=== PATIENT | female | born 1970 | race Caucasian/White ===

== ENCOUNTER → 2019-03-31 09:42 | Outpatient (BNVA) | payer MEDICARE, MEDICAID, SELFPAY | PROVIDERS: PCP Family Medicine; Visit Provider Family Medicine | DX: E11.8 Type 2 diabetes mellitus with unspecified complications (principal); E03.9 Hypothyroidism, unspecified; I10 Essential (primary) hypertension; E78.2 Mixed hyperlipidemia; D72.819 Decreased white blood cell count, unspecified; J44.9 Chronic obstructive pulmonary disease, unspecified; J30.9 Allergic rhinitis, unspecified; E78.5 Hyperlipidemia, unspecified; R74.8 Abnormal levels of other serum enzymes; J30.1 Allergic rhinitis due to pollen; Q90.9 Down syndrome, unspecified; Z79.01 Long term (current) use of anticoagulants; Z51.81 Encounter for therapeutic drug level monitoring; Z86.718 Personal history of other venous thrombosis and embolism | CPT/HCPCS: 80053; 80061; 83036; 84443; 85025; 85610 ==

== ENCOUNTER → 2019-05-27 08:05 | Outpatient (BNVA) | payer MEDICARE, MEDICAID, SELFPAY | PROVIDERS: PCP Family Medicine; Visit Provider Family Medicine | DX: Z51.81 Encounter for therapeutic drug level monitoring (principal); D69.9 Hemorrhagic condition, unspecified | CPT/HCPCS: 85610 ==

== ENCOUNTER → 2019-07-08 08:50 | Outpatient (BNVA) | payer MEDICARE, MEDICAID, SELFPAY | PROVIDERS: PCP Family Medicine; Visit Provider Family Medicine | DX: Z51.81 Encounter for therapeutic drug level monitoring (principal); Z79.01 Long term (current) use of anticoagulants; Z86.718 Personal history of other venous thrombosis and embolism | CPT/HCPCS: 85610 ==

== ENCOUNTER → 2019-10-05 16:34 | Outpatient (BNVA) | payer MEDICARE, MEDICAID, SELFPAY | PROVIDERS: PCP Family Medicine; Visit Provider Family Medicine | DX: Z51.81 Encounter for therapeutic drug level monitoring (principal); Z79.01 Long term (current) use of anticoagulants | CPT/HCPCS: 85610 ==

== ENCOUNTER → 2019-11-16 10:54 | Outpatient (BNVA) | payer MEDICARE, MEDICAID, SELFPAY | PROVIDERS: PCP Family Medicine; Visit Provider Family Medicine | DX: D72.819 Decreased white blood cell count, unspecified (principal); E03.9 Hypothyroidism, unspecified; E11.9 Type 2 diabetes mellitus without complications; J44.9 Chronic obstructive pulmonary disease, unspecified; R74.8 Abnormal levels of other serum enzymes; Z51.81 Encounter for therapeutic drug level monitoring; Z79.01 Long term (current) use of anticoagulants; Z86.718 Personal history of other venous thrombosis and embolism | CPT/HCPCS: 80053; 83036; 84443; 85025; 85610 ==

== ENCOUNTER 2019-11-22 11:17 | Inpatient (IN) | payer MEDICARE, MEDICAID, SELFPAY ==
[2019-11-22] VITALS (17 sets, daily range): BP systolic 90–125; BP diastolic 56–79; PULSE 68–91; RESP 14–26; TEMP 36.9–37.1; O2SAT 67–95; BMI 40.2
--- NOTE | 2019-11-22 11:30 | ECG_ITS ---
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 Measurements Intervals [place] Rate: 79 P: 56 MN: 156 QRS: 17 QRSD: 81 T: 4 QT: 384 QTc: 441 Interpretive Statements SINUS RHYTHM No previous ECG available for comparison Electronically Signed On 11-22-2019 17:57:10 CDT by Damaris Hughes M.D. [email or web address]
--- NOTE | 2019-11-22 11:30 | XRR_ITS ---
PROCEDURE INFORMATION: Exam: XR Chest, 1 View Exam date and time: 11/22/2019 11:49 AM Age: 49 years old Clinical indication: Shortness of breath; Additional info: SOB, hypoxia, exposure to covid TECHNIQUE: Imaging protocol: XR of the chest Views: 1 view. COMPARISON: No relevant prior studies available. FINDINGS: Lungs: Alveolar airspace consolidation left upper lobe. Subtle airspace disease suggested within the lung bases. Consider correlation with CT. Likely infectious process. Pleural space: Unremarkable. No pleural effusion. No pneumothorax. Heart/Mediastinum: Unremarkable. No cardiomegaly. Bones/joints: Unremarkable. XR/XR chest 1V portable [id number] IMPRESSION: Alveolar airspace consolidation left upper lobe. Subtle airspace disease suggested within the lung bases. Consider correlation with CT. Likely infectious process. Covid within the differential diagnosis.
[2019-11-22 11:46] LABS: Basophils % 0.2 %; Hematocrit 37.8 % (37.0-47.0); Hemoglobin 12.7 g/dL (11.5-15.3); Lymphocytes # 0.5 10^3/uL (0.8-4.8); Lymphocytes % 8.6 %; Mean Corpuscular HGB Conc 33.6 g/dL (30.0-36.0); Mean Corpuscular Hemoglobin 31.7 pg (28.0-34.0); Mean Corpuscular Volume 94.3 fL (81-99); Mean Platelet Volume 10.8 fL (7.4-10.4); Monocytes # 0.1 10^3/uL (0.2-0.9); Monocytes % 2.2 %; Neutrophils # 5.06 10^3/uL (1.8-7.7); Neutrophils % 87.4 %; Nucleated Red Blood Cells % 0 %; Platelet Count 219 10^3/cmm (130-400); Red Blood Count 4.01 10^6/uL (4.1-5.3); Red Cell Distribution Width 13.7 % (12.1-15.1); White Blood Count 5.8 10^3/uL (4.0-10.0)
[2019-11-22] MEDS: sodium chloride 0.9% 1,000 ML 999 ML IV ×2 (11:52→13:38)
[2019-11-22 11:55] LABS: D Dimer 0.81 ug/mIFEU (0-0.59)
[2019-11-22 11:57] LABS: Lactic Sepsis W/Reflex 1.7 mmol/L (0.5-2.2)
[2019-11-22 12:00] LABS: Troponin T (5th) Once 19 ng/L (0-10)
[2019-11-22 12:26] LABS: Alanine Aminotransferase 49 U/L (0-33); Albumin Level 3.5 g/dL (3.5-5.2); Alkaline Phosphatase 374 IU/L (35-105); Aspartate Amino Transferase 73 U/L (0-32); Blood Urea Nitrogen 8 mg/dL (6-20); C Reactive Protein 174.2 mg/L (0.0-4.9); Calcium 8.3 mg/dL (8.5-10.5); Carbon Dioxide 25 mmol/L (22-29); Chloride 101 mmol/L (98-107); Globulin 3.4 g/dL (1.3-4.6); Glomerular Filtration Rate 88.6 mL/min (90-130); Glucose 166 mg/dL (65-115); Lactate Dehydrogenase 457 U/L (135-214); NT Pro B Type Natriuretic Pept 651 pg/mL (0-125); Osmolality Calculated 288 mOsm/kg (285-295); Sodium 138 mmol/L (136-145); Total Bilirubin 0.5 mg/dL (0.15-1.2); Total Protein 6.9 g/dL (6.6-8.7)
--- NOTE | 2019-11-22 12:26 | PC.NURSE ---
COVID swabs collected and turned into lab by this nurse at 1210.
--- NOTE | 2019-11-22 12:30 | PC.NUTR ---
Pt given ice water, per pt request. Pt denies the need for anything further at this time.
[2019-11-22 12:36] LABS: Influenza A by IFA Negative (Negative)
[2019-11-22 12:37] LABS: Influenza B by IFA Negative (Negative); SARS Covid-2 Antigen Positive (Negative)
[2019-11-22 12:48] LABS: Ferritin 1829 ng/mL (15-150); Fibrinogen 1020 mg/dL (174-498)
--- NOTE | 2019-11-22 12:54 | ED_ITS ---
HPI - SOB/Dyspnea General: Chief Complaint: Shortness of Breath/Dyspnea Stated Complaint: SOB Time Seen by Provider: 11/22/19 11:18 Source: EMS Mode of arrival: EMS Limitations: other (down's syndrome) History of Present Illness: HPI Narrative: Patient's caregiver took her to her primary care provider's office to get tested for COVID-19 as the patient had a close contact with somebody with COVID-19. At the PCPs office she was noted to be severely hypoxic with oxygen saturation in the 60s. She was then sent here for evaluation. The patient has Down syndrome with intellectual disability and a complete history difficult to obtain from her. She does deny difficulty breathing no chest pain although I am not sure how reliable the history is. MD elicited complaint: shortness of breath Review of Systems General: Reports: ROS unobtainable due to medical condition PFSH ED PFSH: Medical History (Reviewed 11/22/19 @ 13:10 by Yuridia Hartley MD, 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) H/O arthroscopic knee surgery Family History (Reviewed 11/22/19 @ 13:10 by Yuridia Hartley MD, [facility]) Mother Diabetes Social History (Reviewed 11/22/19 @ 13:10 by Yuridia Hartley MD, [facility]) Smoking and tobacco status: never smoked Second hand smoke exposure: No Alcohol intake: never Adopted: No Lives independently: No Household members: family Female Reproductive History: Spontaneous abortions: No Physical Exam Const: COMMON NORMALS: no acute distress, average body habitus, patient oriented x3, no limitations, healthy appearing, alert and well nourished HENMT: COMMON NORMALS: normocephalic, atraumatic and moist oral mucous membranes HEAD & SCALP: normocephalic and atraumatic Neck/C-Spine: COMMON NORMALS: no meningeal signs and no JVD Chest: COMMONS NORMALS: normal inspection of the chest and normal palpation of entire chest wall Resp: COMMON NORMALS: normal respiratory effort, No retractions, No use of accessory muscles and percussion normal AUSCULTATION: rales and diminished lung sounds PERCUSSION: percussion normal Cardio: COMMON NORMALS: no JVD, regular rate, regular rhythm, S1 normal heart sound present, S2 normal heart sound present, No gallops present (Cardio), No clicks present (Cardio), No murmurs present (Cardio), No rub (Cardio) and Fatimah pheral pulses 2+ throughout RATE: regular rate RHYTHM: regular rhythm HEART SOUNDS: S1 normal heart sound present and S2 normal heart sound present PERIPHERAL PULSES: Peripheral pulses 2+ throughout GI: COMMON NORMALS: Normal to inspection, nondistended, normoactive bowel sounds present, Soft to palpation, non-tender, No hepatosplenomegaly present, no masses and no bruits PALPATION: Yes Soft to palpation and Yes No hepatosplenomegaly present Extremity: COMMON NORMALS: normal to inspection, full ROM, capillary refill normal, no calf tenderness and no pedal edema Neuro: COMMON NORMALS: patient oriented x3 SENSORIUM/ORIENTATION: Yes alert MENINGEAL SIGNS: Yes no meningeal signs Skin: COMMON NORMALS: no rashes or lesions noted, no wounds, turgor normal, no jaundice, no petechiae and no mottling GENERAL SKIN EXAM: no rashes or lesions noted and turgor normal Course ED course: During the ED stay the patient took off her oxygen and her saturations dropped to the mid to low 80s. She tested positive for COVID-19. She requires oxygen at 4 L/min to maintain her saturation. She is admitted to the viral ICU for further evaluation and management. Consultations: Consultation #1: Dr. Michel, viral ICU hospitalist. He kindly accepted patient to his service. Vital Signs: Vital signs: Vital Signs Temperature 98.5 F 11/22/19 19:23 Pulse Rate 74 11/22/19 19:57 Respiratory Rate 17 11/22/19 19:52 Blood Pressure 106/58 11/22/19 19:23 Pulse Oximetry 93 11/22/19 19:52 MDM - SOB/Dyspnea MDM Narrative: Medical decision making narrative: 49-year-old patient with COVID-19 and hypoxia. She is admitted to the viral ICU for further evaluation and management. She needed oxygen to maintain her saturations. Medical Records: Attestation: I reviewed the patient's medical records. Lab Data: Attestation: I reviewed the patient's lab results. Labs: Lab Results 11/22/19 11/22/19 11/22/19 Range/Units 11:29 11:29 11:29 WBC 5.8 (4.0-10.0) 10^3/ uL RBC 4.01 L (4.1-5.3) 10^6/u L Hgb 12.7 (11.5-15.3) g/dL Hct 37.8 (37.0-47.0) % MCV 94.3 (81-99) fL MCH 31.7 (28.0-34.0) pg MCHC 33.6 (30.0-36.0) g/dL RDW 13.7 (12.1-15.1) % Plt Count 219 (130-400) 10^3/c mm MPV 10.8 H (7.4-10.4) fL Neut % (Auto) 87.4 % Lymph % (Auto) 8.6 % [place] % (Auto) 2.2 % Eos % (Auto) 0.0 % Baso % (Auto) 0.2 % Neut # (Auto) 5.06 (1.8-7.7) 10^3/u L Lymph # (Auto) 0.5 L (0.8-4.8) 10^3/u L [place] # (Auto) 0.1 L (0.2-0.9) 10^3/u L Eos # (Auto) 0.0 (0.0-0.8) 10^3/u L Baso # (Auto) 0.0 (0.0-0.1) 10^3/u L Nucleated RBC % (a uto) 0 % Nucleated RBCs # 0.0 /100WBC Fibrinogen 1020 H (174-498) mg/dL D-Dimer 0.81 H (0-0.59) ug/mIFE U Sodium 138 (136-145) mmol/L Potassium 4.0 (3.5-5.1) mmol/L Chloride 101 (98-107) mmol/L Carbon Dioxide 25 (22-29) mmol/L Anion Gap 16.0 (5-19) BUN 8 (6-20) mg/dL Creatinine 0.7 (0.5-0.9) mg/dL GFR Calculation 88.6 L (90-130) mL/min Glucose 166 H (65-115) mg/dL Calculated Osmolal ity 288 (285-295) mOsm/k g Lactic Acid (0.5-2.2) mmol/L Calcium 8.3 L (8.5-10.5) mg/dL Ferritin 1829 H (15-150) ng/mL Total Bilirubin 0.5 (0.15-1.2) mg/dL AST 73 H (0-32) U/L ALT 49 H (0-33) U/L Alkaline Phosphata se 374 H (35-105) IU/L Lactate Dehydrogen ase 457 H (135-214) U/L Troponin T Gen 5 n g/L (0-10) ng/L C-Reactive Protein 174.2 H (0.0-4.9) mg/L NT-Pro-B Natriuret Pep 651 H (0-125) pg/mL Total Protein 6.9 (6.6-8.7) g/dL Albumin 3.5 (3.5-5.2) g/dL Globulin 3.4 (1.3-4.6) g/dL TSH (0.27-4.20) uIU/ mL Influenza Type A A g (Negative) Influenza Type B A g (Negative) SARS-CoV-2 Ag (Rap id) (Negative) 11/22/19 11/22/19 11/22/19 Range/Units 11:29 11:29 11:29 WBC (4.0-10.0) 10^3/ uL RBC (4.1-5.3) 10^6/u L Hgb (11.5-15.3) g/dL Hct (37.0-47.0) % MCV (81-99) fL MCH (28.0-34.0) pg MCHC (30.0-36.0) g/dL RDW (12.1-15.1) % Plt Count (130-400) 10^3/c mm MPV (7.4-10.4) fL Neut % (Auto) % Lymph % (Auto) % [place] % (Auto) % Eos % (Auto) % Baso % (Auto) % Neut # (Auto) (1.8-7.7) 10^3/u L Lymph # (Auto) (0.8-4.8) 10^3/u L [place] # (Auto) (0.2-0.9) 10^3/u L Eos # (Auto) (0.0-0.8) 10^3/u L Baso # (Auto) (0.0-0.1) 10^3/u L Nucleated RBC % (a uto) % Nucleated RBCs # /100WBC Fibrinogen (174-498) mg/dL D-Dimer (0-0.59) ug/mIFE U Sodium (136-145) mmol/L Potassium (3.5-5.1) mmol/L Chloride (98-107) mmol/L Carbon Dioxide (22-29) mmol/L Anion Gap (5-19) BUN (6-20) mg/dL Creatinine (0.5-0.9) mg/dL GFR Calculation (90-130) mL/min Glucose (65-115) mg/dL Calculated Osmolal ity (285-295) mOsm/k g Lactic Acid 1.7 (0.5-2.2) mmol/L Calcium (8.5-10.5) mg/dL Ferritin (15-150) ng/mL Total Bilirubin (0.15-1.2) mg/dL AST (0-32) U/L ALT (0-33) U/L Alkaline Phosphata se (35-105) IU/L Lactate Dehydrogen ase (135-214) U/L Troponin T Gen 5 n g/L 19 H (0-10) ng/L C-Reactive Protein (0.0-4.9) mg/L NT-Pro-B Natriuret Pep (0-125) pg/mL Total Protein (6.6-8.7) g/dL Albumin (3.5-5.2) g/dL Globulin (1.3-4.6) g/dL TSH 0.49 (0.27-4.20) uIU/ mL Influenza Type A A g (Negative) Influenza Type B A g (Negative) SARS-CoV-2 Ag (Rap id) (Negative) 11/22/19 11/22/19 Range/Units 11:41 11:41 WBC (4.0-10.0) 10^3/ uL RBC (4.1-5.3) 10^6/u L Hgb (11.5-15.3) g/dL Hct (37.0-47.0) % MCV (81-99) fL MCH (28.0-34.0) pg MCHC (30.0-36.0) g/dL RDW (12.1-15.1) % Plt Count (130-400) 10^3/c mm MPV (7.4-10.4) fL Neut % (Auto) % Lymph % (Auto) % [place] % (Auto) % Eos % (Auto) % Baso % (Auto) % Neut # (Auto) (1.8-7.7) 10^3/u L Lymph # (Auto) (0.8-4.8) 10^3/u L [place] # (Auto) (0.2-0.9) 10^3/u L Eos # (Auto) (0.0-0.8) 10^3/u L Baso # (Auto) (0.0-0.1) 10^3/u L Nucleated RBC % (a uto) % Nucleated RBCs # /100WBC Fibrinogen (174-498) mg/dL D-Dimer (0-0.59) ug/mIFE U Sodium (136-145) mmol/L Potassium (3.5-5.1) mmol/L Chloride (98-107) mmol/L Carbon Dioxide (22-29) mmol/L Anion Gap (5-19) BUN (6-20) mg/dL Creatinine (0.5-0.9) mg/dL GFR Calculation (90-130) mL/min Glucose (65-115) mg/dL Calculated Osmolal ity (285-295) mOsm/k g Lactic Acid (0.5-2.2) mmol/L Calcium (8.5-10.5) mg/dL Ferritin (15-150) ng/mL Total Bilirubin (0.15-1.2) mg/dL AST (0-32) U/L ALT (0-33) U/L Alkaline Phosphata se (35-105) IU/L Lactate Dehydrogen ase (135-214) U/L Troponin T Gen 5 n g/L (0-10) ng/L C-Reactive Protein (0.0-4.9) mg/L NT-Pro-B Natriuret Pep (0-125) pg/mL Total Protein (6.6-8.7) g/dL Albumin (3.5-5.2) g/dL Globulin (1.3-4.6) g/dL TSH (0.27-4.20) uIU/ mL Influenza Type A A g Negative (Negative) Influenza Type B A g Negative (Negative) SARS-CoV-2 Ag (Rap id) Positive H (Negative) Imaging Data^: CXR: Attestation: I personally reviewed and interpreted this imaging study as follows: Radiologist's impression: [address] [address] XRay Report Signed Patient: Dahiana Cha #: [id number] : 1970Acct#:[id number] Age/Sex: 49 / FADM Date: 11/22/19 Loc: ERRoom/Bed: Attending Dr: Ordering Provider/Ordering MD: Yuridia Hartley MD, [facility] Date of Service: 11/22/19 Procedure(s): XR chest 1V portable [id number] Accession Number(s): [id number] Report Number: [id number] PROCEDURE INFORMATION: Exam: XR Chest, 1 View Exam date and time: 11/22/2019 11:49 AM Age: 49 years old Clinical indication: Shortness of breath; Additional info: SOB, hypoxia, exposure to covid TECHNIQUE: Imaging protocol: XR of the chest Views: 1 view. COMPARISON: No relevant prior studies available. FINDINGS: Lungs: Alveolar airspace consolidation left upper lobe. Subtle airspace disease suggested within the lung bases. Consider correlation with CT. Likely infectious process. Pleural space: Unremarkable. No pleural effusion. No pneumothorax. Heart/Mediastinum: Unremarkable. No cardiomegaly. Bones/joints: Unremarkable. XR/XR chest 1V portable [id number] IMPRESSION: Alveolar airspace consolidation left upper lobe. Subtle airspace disease suggested within the lung bases. Consider correlation with CT. Likely infectious process. Covid within the differential diagnosis. Dictated By:Jalil Weiner MD Signed By:Jalil Weiner [facility] Date/Time:11/22/19 1221 DD/ 1219 CT Abd/Pel: Attestation: I personally reviewed and interpreted this imaging study as follows: Radiologist's impression: [address] [place] [address] CT Scan Report Signed Patient: Dahiana Cha #: [id number] : 1970Acct#:[id number] Age/Sex: 49 / FADM Date: 11/22/19 Loc: ICURoom/Bed: [place] [address]: Oleg Meraz MD Ordering Provider/Ordering MD: Yuridia Hartley MD, [facility] Date of Service: 11/22/19 Procedure(s): CT angio chest PE protcl [id number] Accession Number(s): [id number] Report Number: [id number] WS: [id number] CT CHEST ANGIOGRAPHY WITH REFORMATS HISTORY: hypoxia, COVID+ TECHNIQUE: Contiguous axial images are obtained through the chest during arterial injection of intravenous contrast. Images are reconstructed to evaluate the pulmonary arteries. MIP imaging also reviewed. All CT scans at [facility] use at least one of these dose optimization techniques: automated exposure control; mA and/or kV adjustment per patient size (includes targeted exams where dose is matched to clinical indication); or iterative reconstruction. CONTRAST: Omnipaque 350; 95 mL IV. DLP: 531.17 mGy.cm COMPARISON: No similar studies. There is extensive bilateral groundglass and subsolid opacifications throughout both lungs. Greatest on the LEFT. Typical presentation for Covid 19 diagnosis. Mild pleural thickening. No pneumothorax or pleural effusion. Poor opacification of the pulmonary arteries due to the soft tissue and diffuse opacifications throughout both lungs. No definite pulmonary embolism is identified. No RIGHT heart strain. Heart size is normal. Normal size aorta. No definite adenopathy. Upper abdomen is negative. CT/CT angio chest PE protcl [id number] IMPRESSION: 1. Severe bilateral areas of groundglass opacification and consolidation. Typical distribution for Covid 19. 2. No pulmonary embolism. Dictated By:Vinita Phan DO Signed By:Vinita Phan DOSigned Date/Time:11/22/19 1423 DD/ 1421 EKG Data^: EKG 1: Attestation: I personally reviewed and interpreted this EKG as follows: EKG Interpretation Date: 11/22/19 EKG interpretation time: 11:23 Prior EKG tracings: not available for review Interpretation: Normal sinus rhythm. Heart rates [address] changes. No STEMI. Normal EKG. Critical Care Time Critical Care Time: Critical Care Time: Yes Total Critical Care Time: 50 Attestation: This case had a high probability of a clinically significant, sudden, or life threatening deterioration of this patient's condition which required my full and direct attention, intervention and personal management. Discharge Plan Discharge Patient Disposition: Admitted As Inpatient Admit Provider: Oleg Meraz Clinical Impression: Acute hypoxemic respiratory failure due to COVID-19, Pneumonia due to 2019 novel coronavirus Condition: Stable Interventions: ED Discharge Assessment Last Done: 11/22/19 14:20 ED Charges Last Done: 11/22/19 14:20 Discharge Date/Time: 11/22/19 15:00 Coding Level of Care Code ED Division Merchandise Manager for Chg Fwd Exam Comprehensive
--- NOTE | 2019-11-22 13:30 | CT_ITS ---
WS: [id number] CT CHEST ANGIOGRAPHY WITH REFORMATS HISTORY: hypoxia, COVID+ TECHNIQUE: Contiguous axial images are obtained through the chest during arterial injection of intrav enous contrast. Images are reconstructed to evaluate the pulmonary arteries. MIP imaging also reviewe d. All CT scans at [facility] use at least one of these dose optimization techniques: aut omated exposure control; mA and/or kV adjustment per patient size (includes targeted exams where dose is matched to clinical indication); or iterative reconstruction. CONTRAST: Omnipaque 350; 95 mL IV. DLP: 531.17 mGy.cm COMPARISON: No similar studies. There is extensive bilateral groundglass and subsolid opacifications throughout both lungs. Greatest on the LEFT. Typical presentation for Covid 19 diagnosis. Mild pleural thickening. No pneumothorax or pleural effusion. Poor opacification of the pulmonary arteries due to the soft tissue and diffuse opacifications throug hout both lungs. No definite pulmonary embolism is identified. No RIGHT heart strain. Heart size is n ormal. Normal size aorta. No definite adenopathy. Upper abdomen is negative. CT/CT angio chest PE protcl [id number] IMPRESSION: 1. Severe bilateral areas of groundglass opacification and consolidation. Typi chaparro distribution for Covid 19. 2. No pulmonary embolism.
[2019-11-22] MEDS: dexamethasone 4 mg/mL INJ 6 MG IVP (13:38)
--- NOTE | 2019-11-22 15:01 | P.HP_ITS ---
Providers/Chief Complaint Admitting Physician: Oleg Meraz MD Primary Care Provider: Janell Gtz MD Chief Complaint: SOB History of Present Illness Jillian Cha is a 49 year old female with past medical history of Down syndrome, trisomy 21 syndrome, hypothyroidism, type 2 diabetes mellitus on diet restriction, DVT, chronic anticoagulation with warfarin, dementia who was brought in today by her caregiver because of difficulty in breathing. Most of the history taken via phone with Ms. Jazlyn Goodman on [phone] who is patient's caregiver. At baseline patient is able to take care of herself, goes to workshop daily. As per the caregiver last she went to the workshop was on November 15. From November 16 patient started having some low-grade fevers, diarrhea, muscle aches, occasional cough. As per the caregiver multiple people at her workshop have tested positive for COVID-19. As per the caregiver patient has been complaining of mild chest pain on taking a deep breath because of which she is not taking deep breath. Today they went to her primary care provider's office to check for COVID-19 where she was found to be hypoxic persistently on room air and minimal oxygen supplementation so she was sent to the ER. Patient was also taken to the primary care's office/urgent care on with a blood work was done and she was found to be leukopenic but not requiring any oxygen. In the ER, she was found to have oxygen saturation in high 70s and low 80s on room air which improved to more than 91 on 3 L of oxygen supplementation. Blood work done shows a white count of 5.8, hemoglobin of 12.7, platelet count of 219, INR of 2.4, d-dimer 0.81, sodium of 138, creatinine of 0.7, AST/ALT of 73/49, alkaline phosphatase of 374, rapid COVID-19 antigen positive. Review of Systems General: Reports: ROS unobtainable due to mental status Medications/Allergies Home Medications Medication Instructions Recorded Confirmed Last Taken Type ferrous sulfate 27 mg iron tablet 28 mg PO DAILY tab 03/30/19 11/22/19 11/22/19 History magnesium 200 mg tablet 200 mg PO DAILY tab 03/30/19 11/22/19 11/21/19 History multivitamin 1 tab PO DAILY 03/30/19 11/22/19 11/22/19 History omega-3 fatty acids 1,000 mg 1,000 mg PO DAILY 03/30/19 11/22/19 11/22/19 History capsule cetirizine 10 mg tablet 10 mg PO DAILY 30 Days #30 tab 03/31/19 11/22/19 11/22/19 Rx fenofibrate 160 mg tablet 160 mg PO DAILY 30 Days #30 tab 03/31/19 11/22/19 11/22/19 Rx fluticasone propionate 50 1 spray INTRANASAL DAILY 30 Days 03/31/19 11/22/19 11/21/19 Rx mcg/actuation nasal #18.2 ml spray,suspension vitamin E (dl, acetate) 450 mg 1,000 unit PO DAILY 03/31/19 11/22/19 11/22/19 History (1,000 unit) capsule levothyroxine 150 mcg tablet 150 mcg PO DAILY 30 Days #30 tab 11/16/19 11/22/19 11/21/19 Rx warfarin 1 mg tablet See Rx Instructions PO DAILY 30 11/16/19 11/22/19 11/22/19 Rx Days #40 tab ascorbic iytz-jodklywd-luo 1,000 mg PO BEDTIME 11/22/19 11/22/19 11/21/19 History [Emergen-C] aspirin-sod bicarb-citric acid 1 ea PO DAILY PRN 11/22/19 11/22/19 11/22/19 History [Gwendolyn-Rinard Extra Strength] cholecalciferol (vitamin D3) 25 mcg PO DAILY 11/22/19 11/22/19 11/22/19 History [Vitamin D3] lurasidone [Latuda] 40 mg PO BEDTIME 11/22/19 11/22/19 11/21/19 History montelukast 10 mg PO BEDTIME 11/22/19 11/22/19 11/21/19 History Allergies Allergy/AdvReac Type Severity Reaction Status Date / Time No Known Allergies Allergy Verified 11/22/19 09:55 PFSH Acute PFSH: Medical History (Reviewed 11/22/19 @ 13:10 by Yuridia Hartley MD, [facility] [place]) Allergic rhinitis Anticoagulation management encounter Chronic leukopenia Dementia in other diseases classified elsewhere without behavioral disturbance History of DVT (deep vein thrombosis) Hyperlipemia Hypothyroidism 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 Type 2 diabetes mellitus with unspecified complications Surgical History (Reviewed 11/22/19 @ 13:10 by Yuridia Hartley MD, [facility] [place]) H/O arthroscopic knee surgery Family History (Reviewed 11/22/19 @ 13:10 by Yuridia Hartley MD, [facility] [place]) Mother Diabetes Social History (Reviewed 11/22/19 @ 13:10 by Yuridia Hartley MD, [facility] [place]) Smoking and tobacco status: never smoked Second hand smoke exposure: No Alcohol intake: never Adopted: No Lives independently: No Household members: family Female Reproductive History: Spontaneous abortions: No Vitals/I&O/Wt Last Vital Signs Temp 98.5 F 11/22/19 11:19 Pulse 73 11/22/19 14:20 Resp 20 H 11/22/19 14:20 BP 107/58 11/22/19 14:20 Pulse Ox 91 11/22/19 14:20 11/22/19 11/22/19 11/22/19 06:59 14:59 22:59 Intake Total 1000 / 1000 Balance 1000 / 1000 Weight last 48 hrs Weight 84.368 kg Physical Exam Narrative: EXAM NARRATIVE: General: No acute distress, typical facies of trisomy 13 syndrome, following simple commands HEENT: PERRLA, pupils bilaterally equal and reactive Chest: Bronchial breath sounds bilaterally, left more than right, anterior more than posterior, coarse crackles, equal good air entry bilaterally CVS: S1-S2 regular, no murmurs, no tachycardia, no gallops, no rubs Abdomen: Soft, nontender, no organomegaly, bowel sounds present Neuro: Moving all 4 limbs appropriately. Data : 11/22/19 11:29 11/22/19 11:29 A&P Assessment and plan (1) COVID-19: Status: Acute (2) Acute respiratory failure with hypoxia: Status: Acute (3) Warfarin anticoagulation: Status: Acute (4) History of DVT (deep vein thrombosis): Status: Chronic (5) Type 2 diabetes mellitus with unspecified complications: Status: Chronic (6) Trisomy 21 syndrome: Status: Chronic (7) Hyperlipemia: Status: Chronic Qualifiers: Hyperlipidemia type: mixed hyperlipidemia Qualified Code(s): E78.2 - Mixed hyperlipidemia (8) Hypothyroidism: Status: Chronic Qualifiers: Hypothyroidism type: acquired Qualified Code(s): E03.9 - Hypothyroidism, unspecified Additional A&P Information Acute hypoxic respiratory failure because of COVID-19 pneumonia: At least moderate disease as patient is requiring at least 2 to 4 L of oxygen supplementation to keep saturation over 90%. Continue to monitor inflammatory markers daily. Monitor ferritin level, fibrinogen level, d-dimer level, CRP, LDH daily. Will check CTA chest to rule out PE and better visualization of consolidation. Remdesevir for 5-day course, dexamethasone 6 mg IV stat. Would need at least 5-day course. Start patient on vitamin C, zinc. Advair, Spiriva. Oxygen supplementation keeping saturation over 90%. Patient is on chronic anticoagulation with warfarin. Continue with current dose. INR at goal. Check urine Legionella, bacterial antigen, urinalysis, blood culture, procalcitonin, proBNP, MRSA swab. Down syndrome/trisomy 21 syndrome: Patient is at baseline. One-to-one sitter. Ms. Jazlyn Goodman is patient's caregiver. Her phone number is [phone]. She states for now patient would be full code and they are okay with intubation and chest compressions if required. They would not want anything for prolonged period. Type 2 diabetes mellitus: Blood sugars check before meals and at bedtime. Carb consistent diet. Insulin sliding scale at moderate dose. Continue chronic medication like iron supplementation, fenofibrate, magnesium, montelukast, levothyroxine. Carb consistent diet. Warfarin will help with DVT prophylaxis as well. Famotidine for PUD prophylaxis. Full code. Attestations Medical Necessity Statement*: Acute hypoxic respiratory failure, COVID-19 pneumonia Time Spent in Patient Care: Greater than 35 minutes (>than 50% of time spent in counselling and/or direct pt care on unit) . 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
[2019-11-22 16:44] LABS: Thyroid Stimulating Hormone 0.49 uIU/mL (0.27-4.20)
[2019-11-22] MEDS: benzonatate 100 mg Capsule PO ×2 (16:52→20:47)
[2019-11-22] MEDS: sodium chloride 0.9% 1,000 ML 50 ML IV (16:52)
[2019-11-22 17:00] LABS: Glucose Point of Care 224 mg/dL (70-110)
[2019-11-22 20:00] LABS: Glucose Point of Care 229 mg/dL (70-110)
[2019-11-22] MEDS: montelukast sodium 10 mg Tablet PO (20:46)
[2019-11-22] MEDS: ferrous gluconate 324 mg Tablet PO (20:47)
[2019-11-22 21:29] LABS: Procalcitonin 0.12 ng/mL (0-0.5)
[2019-11-22 21:40] LABS: Iron 20 ug/dL (37-145); Percent Saturation 13.8 % (20-50); Total Iron Binding Capacity 144 mcg/dl; Unsaturated Iron Binding 124 ug/dL (112-347)
[2019-11-22 23:10] LABS: Potassium, Radom Urine 32 mmol/L; Urine Random Chloride 99 mmol/L; Urine Random Sodium 72 mmol/L
[2019-11-23] VITALS (25 sets, daily range): BP systolic 98–135; BP diastolic 56–78; PULSE 65–82; RESP 13–34; TEMP 36.3–37; O2SAT 88–96
--- NOTE | 2019-11-23 01:07 | PC.NURSE ---
Patient status update Patient continues to desat with oxygen levels mid to high 80's. Patient was on 3L NC at beginning of shift. Patient is currently on 7L NC. Attempted to use oxymask, but patient would not keep it on. Patient is now proning with sats at 90%.
[2019-11-23] MEDS: albuterol 8 gm MDI 2 PUFF INHALATION ×3 (04:32→21:35)
[2019-11-23] MEDS: dexamethasone 4 mg/mL INJ 6 MG IVP (05:29)
--- NOTE | 2019-11-23 05:37 | PC.NURSE ---
Pt change in status 0400. Pt sats dropping to 86-88% Respirations 35-40 per minute. Pt was on 3L NC sats at 90%. Pt has been proning since 0100 on 10L high flow NC with pt not tolerating. Sats drop to 70's when getting up to BSC. Pt sitting in high fowlers on 10L high flow NC and still struggling to catch her breath. Dr. Rousseau ordered pt to be placed on Bipap. Pt is now 70% Bipap sat steadily staying at 94%
[2019-11-23 06:02] LABS: Basophils % 0.2 %; Hematocrit 34.8 % (37.0-47.0); Hemoglobin 11.6 g/dL (11.5-15.3); Lymphocytes # 0.5 10^3/uL (0.8-4.8); Lymphocytes % 10.8 %; Mean Corpuscular HGB Conc 33.3 g/dL (30.0-36.0); Mean Corpuscular Hemoglobin 32.2 pg (28.0-34.0); Mean Corpuscular Volume 96.7 fL (81-99); Mean Platelet Volume 10.7 fL (7.4-10.4); Monocytes # 0.1 10^3/uL (0.2-0.9); Neutrophils # 4.14 10^3/uL (1.8-7.7); Nucleated Red Blood Cells % 0 %; Platelet Count 225 10^3/cmm (130-400); Red Cell Distribution Width 13.8 % (12.1-15.1)
[2019-11-23 06:20] LABS: INR 3.85 (0.8-1.2)
[2019-11-23 06:38] LABS: Slide Review Slide Review Perform
[2019-11-23 06:44] LABS: Estmated Average Glucose 126
[2019-11-23 06:47] LABS: C Reactive Protein 170.5 mg/L (0.0-4.9); Chol HDL Ratio 3.93 mg/dL (0.0-4.40); Cholesterol 157 mg/dL (0-200); Creatine Phosphokinase 123 U/L (26-192); HDL Cholesterol 40 mg/dL (60-100); LDL Cholesterol Calculated 95 mg/dL (50-129); Triglycerides 110 mg/dL (0-150); VLDL Cholestrol Calculation 22 mg/dL (0-30)
[2019-11-23 06:55] LABS: D Dimer 0.77 ug/mIFEU (0-0.59)
[2019-11-23 07:04] LABS: Ferritin 1646 ng/mL (15-150)
[2019-11-23 07:06] LABS: Lactate Dehydrogenase 474 U/L (135-214)
[2019-11-23 07:14] LABS: Alanine Aminotransferase 42 U/L (0-33); Albumin Level 3.2 g/dL (3.5-5.2); Alkaline Phosphatase 300 IU/L (35-105); Aspartate Amino Transferase 60 U/L (0-32); Blood Urea Nitrogen 11 mg/dL (6-20); Calcium 7.9 mg/dL (8.5-10.5); Carbon Dioxide 23 mmol/L (22-29); Chloride 102 mmol/L (98-107); Globulin 3.3 g/dL (1.3-4.6); Glomerular Filtration Rate 130.6 mL/min (90-130); Glucose 133 mg/dL (65-115); Osmolality Calculated 285 mOsm/kg (285-295); Sodium 137 mmol/L (136-145); Total Bilirubin 0.3 mg/dL (0.15-1.2); Total Protein 6.5 g/dL (6.6-8.7)
[2019-11-23] MEDS: zinc gluconate 50 mg Tablet PO (08:15)
[2019-11-23] MEDS: ferrous gluconate 324 mg Tablet PO ×2 (08:15→17:03)
[2019-11-23] MEDS: ascorbic acid 500 mg Tablet PO (08:15)
[2019-11-23] MEDS: benzonatate 100 mg Capsule PO ×3 (08:15→21:03)
[2019-11-23] MEDS: levothyroxine 150 mcg Tablet PO (08:22)
[2019-11-23 08:38] LABS: Glucose Point of Care 143 mg/dL (70-110)
--- NOTE | 2019-11-23 10:19 | PC.NURSE ---
Father, Deepak Semaj, called to check on pt. Updated him. VSS pt in good spirits. She needed the BiPap overnight but is doing fine on hig flow nasal cannula at 10 lpm.
--- NOTE | 2019-11-23 11:10 | PC.NURSE ---
Jazlyn Cha, called to check on pt. She stated she was the gaurantor/ guardian along with her Brendan. Requested her to send a copy of the guardianship papers to be faxed to ICU.
--- NOTE | 2019-11-23 11:35 | PM.PN ---
Subjective Subjective: Interval history: Patient comfortable during examination. She is having her lunch. Not in acute respiratory distress at all. She is saturating 93% on 10 L high flow nasal cannula. Overnight patient was placed on BiPAP because of respiratory distress. Patient has not been in any respiratory distress since today morning. She states her energy levels are good. As per the nurse patient has not had any nausea vomiting or has had any complaints. Patient seems in very jovial mood. Vitals/I&O/Wt Last Vital Signs Temp 97.8 F 11/23/19 08:00 Pulse 75 11/23/19 10:00 Resp 19 H 11/23/19 10:00 BP 119/67 11/23/19 10:00 Pulse Ox 90 11/23/19 10:00 11/22/19 11/23/19 11/23/19 22:59 06:59 14:59 Intake Total 1100 / 2100 240 / 2340 360 / 360 Output Total 800 / 800 700 / 1500 500 / 500 Balance 300 / 1300 -460 / 840 -140 / -140 Weight last 48 hrs Weight 89.63 kg Weight 84.368 kg Physical Exam Narrative: EXAM NARRATIVE: General: No acute distress, typical facies of trisomy 13 syndrome, following simple commands HEENT: PERRLA, pupils bilaterally equal and reactive Chest: Bronchial breath sounds bilaterally, left more than right, anterior more than posterior, coarse crackles, equal good air entry bilaterally CVS: S1-S2 regular, no murmurs, no tachycardia, no gallops, no rubs Abdomen: Soft, nontender, no organomegaly, bowel sounds present Neuro: Moving all 4 limbs appropriately. Data : 11/23/19 04:20 11/23/19 04:20 Micro: Microbiology 11/22/19 21:48 Legionella Urinary Antigen - Final Urine,Clean Catch 11/22/19 20:00 Blood Culture - Preliminary Blood SPECIMEN COLLECTED 11/22/19 20:00 Blood Culture - Preliminary Blood SPECIMEN COLLECTED A&P Assessment and plan (1) COVID-19: Status: Acute (2) Acute respiratory failure with hypoxia: Status: Acute (3) Warfarin anticoagulation: Status: Acute (4) History of DVT (deep vein thrombosis): Status: Chronic (5) Type 2 diabetes mellitus with unspecified complications: Status: Chronic (6) Trisomy 21 syndrome: Status: Chronic (7) Hyperlipemia: Status: Chronic Qualifiers: Hyperlipidemia type: mixed hyperlipidemia Qualified Code(s): E78.2 - Mixed hyperlipidemia (8) Hypothyroidism: Status: Chronic Qualifiers: Hypothyroidism type: acquired Qualified Code(s): E03.9 - Hypothyroidism, unspecified (9) Supratherapeutic INR: Status: Acute Additional A&P Information Acute hypoxic respiratory failure because of COVID-19 pneumonia: At least moderate disease as patient is requiring at least 2 to 4 L of oxygen supplementation to keep saturation over 90%. Continue to monitor inflammatory markers daily. Monitor ferritin level, fibrinogen level, d-dimer level, CRP, LDH daily. CTA negative for PE. Remdesevir for 5-day course, dexamethasone 6 mg IV stat. Day 2/5 today. Continue with Tessalon Perles, vitamin C, zinc. Advair, Spiriva. Procalcitonin within normal limits, no consolidation on chest imaging concerning for active pneumonia. For now hold off on any further antibiotics. Legionella negative. We will add on bacterial antigen panel. Will start on levofloxacin for 5 days. Oxygen supplementation keeping saturation over 90%. We will try to wean oxygen gradually. She is eating we will stop IV fluids. Patient is having good urine output. Overall patient has put out 2700 cc of urine since yesterday. Still 39 cc positive. Continue to monitor output regularly. Euvolemic at present. Supratherapeutic INR: Patient is on warfarin for chronic DVT. INR 3.8 today. Not sure if there is any interaction between warfarin and Remdesevir. Liver functions mildly deranged but improving. For now we will hold off on any further warfarin. Switch to Lovenox 1 mg/kg body weight every 12 hour from tomorrow. Continue to check INR daily. Down syndrome/trisomy 21 syndrome: Patient is at baseline. One-to-one sitter. Ms. Bridgett Goodman is patient's caregiver. Her phone number is [phone]. She states for now patient would be full code and they are okay with intubation and chest compressions if required. They would not want anything for prolonged period. Type 2 diabetes mellitus: Blood sugars check before meals and at bedtime. Carb consistent diet. Insulin sliding scale at moderate dose. Continue chronic medication like iron supplementation, fenofibrate, magnesium, montelukast, levothyroxine. Carb consistent diet. Warfarin will help with DVT prophylaxis as well. Famotidine for PUD prophylaxis. Full code. Patient's caregiver has been updated and all the questions were answered. Attestations Medical Necessity Statement*: COVID-19 pneumonia, acute hypoxic respiratory failure, supratherapeutic INR Time Spent in Patient Care: Greater than 35 minutes (>than 50% of time spent in counselling and/or direct pt care on unit). 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
[2019-11-23 11:39] LABS: Glucose Point of Care 272 mg/dL (70-110)
--- NOTE | 2019-11-23 16:48 | PC.NURSE ---
Report given to MANUEL Sunshine.
[2019-11-23 16:56] LABS: Glucose Point of Care 282 mg/dL (70-110)
[2019-11-23 19:49] LABS: Glucose Point of Care 262 mg/dL (70-110)
[2019-11-23] MEDS: montelukast sodium 10 mg Tablet PO (21:04)
[2019-11-24] VITALS (22 sets, daily range): BP systolic 99–130; BP diastolic 58–85; PULSE 66–85; RESP 15–32; TEMP 36.4–37; O2SAT 88–99
[2019-11-24] MEDS: albuterol 8 gm MDI 2 PUFF INHALATION ×3 (03:09→20:54)
[2019-11-24] MEDS: dexamethasone 4 mg/mL INJ 6 MG IVP (03:49)
[2019-11-24] MEDS: levoFLOXacin 500 mg Tablet PO (05:46)
--- NOTE | 2019-11-24 06:10 | PC.NURSE ---
Addendum entered by Jane Sutton LPN 11/24/19 06:27: No issues with patient through the night. Patient did not attempt to get out of bed on her own, left all lines alone, and did not take oxygen off at any time. Pt has been cooperative and calm. Original Note: Pt oxygen desat over night down to 84%. Oxygen was titrated a few times up to 8L NC. Pt had good output using BSC. Patients sats would drop down to about 87 when getting up out of bed. Pt is currently on 8L NC at 92% comfortably.
[2019-11-24 06:20] LABS: Basophils % 0.1 %; Hematocrit 34.4 % (37.0-47.0); Hemoglobin 11.6 g/dL (11.5-15.3); Lymphocytes # 0.6 10^3/uL (0.8-4.8); Lymphocytes % 8.5 %; Mean Corpuscular HGB Conc 33.7 g/dL (30.0-36.0); Mean Corpuscular Hemoglobin 32.3 pg (28.0-34.0); Mean Corpuscular Volume 95.8 fL (81-99); Mean Platelet Volume 10.9 fL (7.4-10.4); Monocytes # 0.3 10^3/uL (0.2-0.9); Neutrophils # 6.22 10^3/uL (1.8-7.7); Neutrophils % 82.1 %; Nucleated Red Blood Cells % 0 %; Platelet Count 270 10^3/cmm (130-400); Red Blood Count 3.59 10^6/uL (4.1-5.3); White Blood Count 7.6 10^3/uL (4.0-10.0)
[2019-11-24 06:32] LABS: Fibrinogen 671 mg/dL (174-498)
[2019-11-24 06:38] LABS: D Dimer 0.67 ug/mIFEU (0-0.59)
[2019-11-24 06:47] LABS: C Reactive Protein 68.9 mg/L (0.0-4.9); Creatine Phosphokinase 77 U/L (26-192); Lactate Dehydrogenase 418 U/L (135-214)
[2019-11-24 06:48] LABS: Alanine Aminotransferase 36 U/L (0-33); Alkaline Phosphatase 238 IU/L (35-105); Anion Gap 14.9 (5-19); Aspartate Amino Transferase 42 U/L (0-32); Blood Urea Nitrogen 14 mg/dL (6-20); Calcium 7.9 mg/dL (8.5-10.5); Carbon Dioxide 25 mmol/L (22-29); Chloride 103 mmol/L (98-107); Globulin 3.1 g/dL (1.3-4.6); Glomerular Filtration Rate 130.6 mL/min (90-130); Glucose 159 mg/dL (65-115); Osmolality Calculated 292 mOsm/kg (285-295); Potassium 3.9 mmol/L (3.5-5.1); Sodium 139 mmol/L (136-145); Total Bilirubin 0.3 mg/dL (0.15-1.2); Total Protein 6.1 g/dL (6.6-8.7)
[2019-11-24 06:51] LABS: Slide Review Slide Review Perform
[2019-11-24 07:12] LABS: Ferritin 2087 ng/mL (15-150)
[2019-11-24 07:20] LABS: Glucose Point of Care 185 mg/dL (70-110)
[2019-11-24] MEDS: benzonatate 100 mg Capsule PO ×3 (08:09→20:51)
[2019-11-24] MEDS: ferrous gluconate 324 mg Tablet PO ×2 (08:09→17:51)
[2019-11-24] MEDS: ascorbic acid 500 mg Tablet PO (08:09)
[2019-11-24] MEDS: levothyroxine 150 mcg Tablet PO (08:09)
[2019-11-24] MEDS: enoxaparin 100 mg/mL Syringe 90 MG SUBCUT (08:09)
[2019-11-24] MEDS: zinc gluconate 50 mg Tablet PO (08:09)
--- NOTE | 2019-11-24 09:45 | PC.RESP ---
PATIENT DOES NOT HAVE A QUALIFYING HX OF LUNG DISEASE AND DOES NOT QUALIFY FOR PULMONARY REHAB AT THIS TIME.
--- NOTE | 2019-11-24 11:31 | XRR_ITS ---
PROCEDURE INFORMATION: Exam: XR Chest, 1 View Exam date and time: 11/24/2019 12:07 PM Age: 49 years old Clinical indication: Condition or disease; Other: Covid TECHNIQUE: Imaging protocol: XR of the chest Views: 1 view. COMPARISON: CR XR chest 1V portable [id number] 11/22/2019 11:35 AM FINDINGS: Lungs: Progressive and diffuse bilateral airspace disease, in the setting of reported COVID pneumonitis. Interstitial prominence. Pleural space: Questionable small pleural effusions. Heart/Mediastinum: No cardiomegaly. Bones/joints: Unremarkable. XR/XR chest 1V portable [id number] IMPRESSION: Progressive and diffuse bilateral airspace disease, in the setting of reported COVID pneumonitis.
[2019-11-24 11:41] LABS: Glucose Point of Care 250 mg/dL (70-110)
[2019-11-24 15:47] LABS: Glucose Point of Care 236 mg/dL (70-110)
--- NOTE | 2019-11-24 15:55 | P.PN_ITS ---
Subjective Subjective: Interval history: No acute events overnight. Patient comfortable during examination. She is doing well. Having her lunch. States she is feeling better. Her energy levels are good. Able to ambulate to bathroom without any difficulty. Desaturates on ambulation. At present on 8 L high flow nasal cannula saturating 94%. Denies any nausea, vomiting, headache, dizziness. No agitation. Vitals/I&O/Wt Last Vital Signs Temp 98.0 F 11/24/19 14:03 Pulse 66 11/24/19 14:47 Resp 16 11/24/19 14:47 BP 105/62 11/24/19 14:03 Pulse Ox 94 11/24/19 14:47 11/24/19 11/24/19 11/24/19 06:59 14:59 22:59 Intake Total 480 / 3195.000 600 / 600 Output Total 1950 / 3550 650 / 650 800 / 1450 Balance -1470 / -355.000 -50 / -50 -800 / -850 Weight last 48 hrs Weight 89.018 kg Weight 89.63 kg Physical Exam Narrative: EXAM NARRATIVE: General: No acute distress, typical facies of trisomy 13 syndrome, following simple commands HEENT: PERRLA, pupils bilaterally equal and reactive Chest: Bronchial breath sounds bilaterally, left more than right, anterior more than posterior, coarse crackles, equal good air entry bilaterally CVS: S1-S2 regular, no murmurs, no tachycardia, no gallops, no rubs Abdomen: Soft, nontender, no organomegaly, bowel sounds present Neuro: Moving all 4 limbs appropriately. Data : 11/24/19 04:00 11/24/19 04:00 Micro: Microbiology 11/24/19 12:50 Blood Culture - Preliminary Blood SPECIMEN COLLECTED 11/24/19 11:45 Blood Culture - Preliminary Blood SPECIMEN COLLECTED 11/22/19 20:00 Blood Culture - Preliminary Blood Gram positive cocci 11/22/19 20:00 Blood Culture - Preliminary Blood NEGATIVE TO DATE 11/22/19 21:48 Bacterial Antigens - Final Urine,Voided 11/22/19 16:30 MRSA Culture - Final Nose A&P Assessment and plan (1) COVID-19: Status: Acute (2) Acute respiratory failure with hypoxia: Status: Acute (3) Warfarin anticoagulation: Status: Acute (4) History of DVT (deep vein thrombosis): Status: Chronic (5) Type 2 diabetes mellitus with unspecified complications: Status: Chronic (6) Trisomy 21 syndrome: Status: Chronic (7) Hyperlipemia: Status: Chronic Qualifiers: Hyperlipidemia type: mixed hyperlipidemia Qualified Code(s): E78.2 - Mixed hyperlipidemia (8) Hypothyroidism: Status: Chronic Qualifiers: Hypothyroidism type: acquired Qualified Code(s): E03.9 - Hypothyroidism, unspecified (9) Supratherapeutic INR: Status: Acute Additional A&P Information Acute hypoxic respiratory failure because of COVID-19 pneumonia: At least moderate disease as patient is requiring at least 2 to 4 L of oxygen supplementation to keep saturation over 90%. Continue to monitor inflammatory markers daily. Monitor ferritin level, fibrinogen level, d-dimer level, CRP, LDH daily. CTA negative for PE. Inflammatory markers improving except mild elevation in sed rate levels. Remdesevir for 5-day course, dexamethasone 6 mg IV stat. Day 3/5 today. Continue with Tessalon Perles, vitamin C, zinc. Advair, Spiriva. Procalcitonin within normal limits, no consolidation on chest imaging concerning for active pneumonia. For now hold off on any further antibiotics. Legionella negative, bacterial antigen negative. Blood cultures from day of admission 1 out of 4 bottles positive for GPC. Likely contaminant. Will repeat blood cultures. Continue with levofloxacin at current dose. Will do a 5-day course. Day 3 today. Oxygen supplementation keeping saturation over 90%. We will try to wean oxygen gradually. Good urine output. Net 300 cc negative. Supratherapeutic INR: Patient is on warfarin for chronic DVT. INR 3.3 today. Not sure if there is any interaction between warfarin and Remdesevir. Liver functions mildly deranged but improving. Continue to monitor INR daily. Stop warfarin and start on Lovenox 1 mg/kg body weight every 12 hours. Will restart Lovenox once INR around 2. Pharmacy consult for INR monitoring. Down syndrome/trisomy 21 syndrome: Patient is at baseline. One-to-one sitter. Ms. Bridgett Goodman is patient's caregiver. Her phone number is [phone]. She states for now patient would be full code and they are okay with intubation and chest compressions if required. They would not want anything for prolonged period. Type 2 diabetes mellitus: Blood sugars check before meals and at bedtime. Carb consistent diet. Insulin sliding scale at moderate dose. Continue chronic medication like iron supplementation, fenofibrate, magnesium, montelukast, levothyroxine. Carb consistent diet. Warfarin will help with DVT prophylaxis as well. Famotidine for PUD prophylaxis. Full code. Patient's caregiver has been updated and all the questions were answered. Attestations Medical Necessity Statement*: Acute hypoxic respiratory failure due to covered pneumonia, supratherapeutic INR Time Spent in Patient Care: Greater than 35 minutes (>than 50% of time spent in counselling and/or direct pt care on unit) . 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
[2019-11-24 19:24] LABS: Coronavirus Lab Test PTC Positive
--- NOTE | 2019-11-24 19:30 | PC.NURSE ---
Pt resting in bed. Call light in reach. Pt denies any needs or pain. Pt provided with fresh water at this time. VSS. No acute distress noted.
[2019-11-24 20:14] LABS: Glucose Point of Care 353 mg/dL (70-110)
[2019-11-24] MEDS: montelukast sodium 10 mg Tablet PO (20:51)
--- NOTE | 2019-11-24 22:51 | PC.NURSE ---
Bi-Pap placed on standby and NC in place at this time. Pt pulse ox 92%. Pt resting comfortably
[2019-11-25] VITALS (21 sets, daily range): BP systolic 90–160; BP diastolic 48–107; PULSE 65–87; RESP 16–24; TEMP 36.1–36.9; O2SAT 88–97
[2019-11-25 04:21] LABS: Blood Gas Allen Test Pos; Blood Gas Sample Type Arterial; Potassium Level - ABG 4.1 mmol/L (3.5-5.0)
[2019-11-25 04:24] LABS: ABG PH Result 7.53 (7.35-7.45); Alveolar-Arterial Oxygen Gradi 21.6 mmHg (5-10); Arterial Blood Gas Hematocrit 38.4 % (37-47); Base Excess ABG 6.3 mmol/L (-2.0-2.0); Blood Gas Sample Site Radial, left; Carboxyhemoglobin 0.4 %THgb (0.4-20.1); HCO3 ABG 29.1 mmol/L (22-26); HGB O2 Sat 97.5 % (95-100); Ionized Calcium Level - ABG 1.2 mmol/L (1.1-1.4); Methemoglobin 0.4 % (0.4-1.5); Oxygen Device NC; Oxygen Saturation ABG 98.4; Total Hemoglobin 12.5 g/dL (12-16)
[2019-11-25] MEDS: dexamethasone 4 mg/mL INJ 6 MG IVP (05:06)
[2019-11-25] MEDS: levoFLOXacin 500 mg Tablet PO (05:07)
[2019-11-25 05:41] LABS: Hematocrit 36.2 % (37.0-47.0); Hemoglobin 12.1 g/dL (11.5-15.3); Mean Corpuscular HGB Conc 33.4 g/dL (30.0-36.0); Mean Corpuscular Hemoglobin 31.8 pg (28.0-34.0); Mean Platelet Volume 10.7 fL (7.4-10.4); Platelet Count 316 10^3/cmm (130-400); Red Blood Count 3.81 10^6/uL (4.1-5.3); Red Cell Distribution Width 13.8 % (12.1-15.1); White Blood Count 10.6 10^3/uL (4.0-10.0)
--- NOTE | 2019-11-25 05:47 | PC.NURSE ---
Pt has had no acute distress throughout the shift. No acute changes. Pt uses bedside commode as needed and has used call light appropriately this shift. Pt is alert, oriented, denies any needs at this time. Call light and bedside tray within reach. Pt has used bipap intermittently this shift. No acute SOB noted at this time.
[2019-11-25 05:57] LABS: Fibrinogen 711 mg/dL (174-498); INR 2.87 (0.8-1.2)
[2019-11-25 06:01] LABS: D Dimer 0.86 ug/mIFEU (0-0.59)
[2019-11-25 06:06] LABS: Alanine Aminotransferase 43 U/L (0-33); Albumin Level 3.2 g/dL (3.5-5.2); Alkaline Phosphatase 231 IU/L (35-105); Anion Gap 15.2 (5-19); Aspartate Amino Transferase 47 U/L (0-32); Blood Urea Nitrogen 18 mg/dL (6-20); C Reactive Protein 34.4 mg/L (0.0-4.9); Calcium 8.4 mg/dL (8.5-10.5); Carbon Dioxide 28 mmol/L (22-29); Chloride 98 mmol/L (98-107); Globulin 3.1 g/dL (1.3-4.6); Glomerular Filtration Rate 105.8 mL/min (90-130); Glucose 116 mg/dL (65-115); Lactate Dehydrogenase 544 U/L (135-214); Osmolality Calculated 287 mOsm/kg (285-295); Potassium 4.2 mmol/L (3.5-5.1); Sodium 137 mmol/L (136-145); Total Bilirubin 0.4 mg/dL (0.15-1.2); Total Protein 6.3 g/dL (6.6-8.7)
[2019-11-25 06:30] LABS: Ferritin 2130 ng/mL (15-150)
[2019-11-25 06:30] LABS: Glucose Point of Care 140 mg/dL (70-110)
[2019-11-25 07:10] LABS: Slide Review Slide Review Perform
[2019-11-25 07:11] LABS: Absolute Segmented Neutrophil 7.7 10/cmm (1.6-7.1); Band Neutrophils Absolute 1.8 10^3/cmm (0.0-1.2); Lymphocytes 7 %; Monocytes Absolute 0.2 10^3/cmm (0.1-0.6); Segmented Neutrophils 73 %; Total Cells Counted 100 (0-100)
[2019-11-25 07:12] LABS: Absolute Neutrophil 9.5 10^3/cmm (1.4-6.5); Platelet Estimate Normal (Normal)
[2019-11-25] MEDS: ascorbic acid 500 mg Tablet PO (08:22)
[2019-11-25] MEDS: zinc gluconate 50 mg Tablet PO (08:23)
[2019-11-25] MEDS: benzonatate 100 mg Capsule PO ×3 (08:23→23:03)
[2019-11-25] MEDS: ferrous gluconate 324 mg Tablet PO ×2 (08:23→17:01)
[2019-11-25] MEDS: levothyroxine 150 mcg Tablet PO (08:23)
[2019-11-25] MEDS: albuterol 8 gm MDI 2 PUFF INHALATION ×2 (08:46→19:56)
--- NOTE | 2019-11-25 08:47 | PC.RESP ---
Inhalers given and patient used Incentive spirometer and Acapella x10 each. Patient currently requiring 6lpm via high flow nasal cannula.
[2019-11-25 11:14] LABS: Glucose Point of Care 244 mg/dL (70-110)
[2019-11-25] MEDS: piperacillin-tazobactam 3.375 GM in sodium chloride 0.9% (plus) 50 ML IV ×2 (11:32→18:37)
[2019-11-25 12:01] LABS: NT Pro B Type Natriuretic Pept 374 pg/mL (0-125)
--- NOTE | 2019-11-25 12:18 | P.PN_ITS ---
Subjective Subjective: Interval history: No acute events overnight. Patient has remained comfortable. On examination sitting up in bed having her food. She is able to ambulate in her room. Overnight she desaturated up to high 80s while sleeping and BiPAP was tried which she did not tolerate well. At present she is saturating 93% on 6 L. Vitals/I&O/Wt Last Vital Signs Temp 98.0 F 11/25/19 08:00 Pulse 78 11/25/19 11:58 Resp 16 11/25/19 08:00 BP 112/68 11/25/19 08:00 Pulse Ox 92 11/25/19 11:58 11/24/19 11/25/19 11/25/19 22:59 06:59 14:59 Intake Total 1300 / 1900 240 / 2140 360 / 360 Output Total 2100 / 2750 3450 / 6200 Balance -800 / -850 -3210 / -4060 360 / 360 Weight last 48 hrs Weight 87.657 kg Weight 892.216 kg Weight 89.018 kg Physical Exam Narrative: EXAM NARRATIVE: General: No acute distress, typical facies of trisomy 13 syndrome, following simple commands HEENT: PERRLA, pupils bilaterally equal and reactive Chest: Bronchial breath sounds bilaterally, left more than right, anterior more than posterior, coarse crackles, equal good air entry bilaterally CVS: S1-S2 regular, no murmurs, no tachycardia, no gallops, no rubs Abdomen: Soft, nontender, no organomegaly, bowel sounds present Neuro: Moving all 4 limbs appropriately. Data : 11/25/19 04:21 11/25/19 04:21 Other Labs: D-dimer 0.86 Fibrinogen 711 INR 2.87 Ferritin 2130 AST/ALT 47/43 LDH 544 CRP 34.4 proBNP 374 Micro: Microbiology 11/24/19 12:50 Blood Culture - Preliminary Blood SPECIMEN COLLECTED 11/24/19 11:45 Blood Culture - Preliminary Blood SPECIMEN COLLECTED 11/22/19 20:00 Blood Culture - Preliminary Blood Gram positive cocci A&P Assessment and plan (1) COVID-19: Status: Acute (2) Acute respiratory failure with hypoxia: Status: Acute (3) Warfarin anticoagulation: Status: Acute (4) History of DVT (deep vein thrombosis): Status: Chronic (5) Type 2 diabetes mellitus with unspecified complications: Status: Chronic (6) Trisomy 21 syndrome: Status: Chronic (7) Hyperlipemia: Status: Chronic Qualifiers: Hyperlipidemia type: mixed hyperlipidemia Qualified Code(s): E78.2 - Mixed hyperlipidemia (8) Hypothyroidism: Status: Chronic Qualifiers: Hypothyroidism type: acquired Qualified Code(s): E03.9 - Hypothyroidism, unspecified (9) Supratherapeutic INR: Status: Acute Additional A&P Information Acute hypoxic respiratory failure because of COVID-19 pneumonia: At least moderate disease as patient is requiring at least 2 to 4 L of oxygen supplementation to keep saturation over 90%. Continue to monitor inflammatory markers daily. Monitor ferritin level, fibrinogen level, d-dimer level, CRP, LDH daily. CTA negative for PE. Inflammatory markers improving except mild elevation in sed rate levels. Remdesevir for 5-day course, dexamethasone 6 mg IV stat. Day 4/5 today. Continue with Tessalon Perles, vitamin C, zinc. Advair, Spiriva. Procalcitonin within normal limits, no consolidation on chest imaging concerning for active pneumonia. For now hold off on any further antibiotics. Legionella negative, bacterial antigen negative. Blood cultures from day of admission 1 out of 4 bottles positive for GPC. Likely contaminant. Repeat blood cultures have remained negative. MRSA negative. Patient has remained afebrile. Urine Legionella and bacterial antigens have been negative. White count mildly elevated today. Check procalcitonin. If elevated will broaden the spectrum antibiotics. For now continue with levofloxacin at current dose. Day 4/5 today. Oxygen supplementation keeping saturation over 90%. We will try to wean oxygen gradually. Patient having good amount of urine output. Net mildly negative. Sodium levels are stable. We will continue to monitor. Supratherapeutic INR: Patient is on warfarin for chronic DVT. INR improving today. 2.87. We will continue to monitor. Once around 2 we will start her on full dose of Lovenox. Not sure if there is any interaction between warfarin and Remdesevir. So we will hold off on warfarin for now. Liver functions mildly deranged but improving. Monitor INR daily. Pharmacy consult for INR monitoring. Down syndrome/trisomy 21 syndrome: Patient is at baseline. One-to-one sitter. Ms. Bridgett Goodman is patient's caregiver. Her phone number is [phone]. She states for now patient would be full code and they are okay with intubation and chest compressions if required. They would not want anything for prolonged period. Type 2 diabetes mellitus: Blood sugars check before meals and at bedtime. Carb consistent diet. Insulin sliding scale at moderate dose. Continue chronic medication like iron supplementation, fenofibrate, magnesium, montelukast, levothyroxine. Carb consistent diet. Warfarin will help with DVT prophylaxis as well. Famotidine for PUD prophylaxis. Full code. Patient's caregiver has been updated and all the questions were answered. Attestations Medical Necessity Statement*: Hypoxia because of over 19 pneumonia, supratherapeutic INR Time Spent in Patient Care: Greater than 35 minutes (>than 50% of time spent in counselling and/or direct pt care on unit) . Coding Level of Care Code Acute Medicare Sales Representative for [facility] Fwd Diagnoses COVID-19 U07.1 Acute respiratory failure with hypoxia J96.01 Warfarin anticoagulation Z79.01 History of DVT (deep vein thrombosis) Z86.718 Type 2 diabetes mellitus with unspecified complications E11.8 Trisomy 21 syndrome Q90.9 Hyperlipemia E78.2 Hyperlipidemia type: mixed hyperlipidemia Hypothyroidism E03.9 Hypothyroidism type: acquired Supratherapeutic INR R79.1
[2019-11-25 13:21] LABS: Procalcitonin 0.02 ng/mL (0-0.5)
[2019-11-25 16:04] LABS: Glucose Point of Care 206 mg/dL (70-110)
--- NOTE | 2019-11-25 17:11 | DCPLANNER ---
Pg 2 of IM explained to pt's Guardian; Jazlyn Cha - [phone]. No questions.
[2019-11-25 20:28] LABS: Glucose Point of Care 149 mg/dL (70-110)
[2019-11-25] MEDS: insulin glargine 100 units/1 mL 10 UNIT SUBCUT (23:04)
[2019-11-25] MEDS: montelukast sodium 10 mg Tablet PO (23:15)
[2019-11-26] VITALS (22 sets, daily range): BP systolic 95–133; BP diastolic 60–84; PULSE 66–85; RESP 15–26; TEMP 36.4–36.7; O2SAT 91–99
[2019-11-26] MEDS: dexamethasone 4 mg/mL INJ 6 MG IVP ×2 (03:57→16:45)
[2019-11-26] MEDS: piperacillin-tazobactam 3.375 GM in sodium chloride 0.9% (plus) 50 ML IV ×3 (04:20→18:22)
--- NOTE | 2019-11-26 05:53 | PC.NURSE ---
Shift summary 11/25/19 [id number] Patient was pleasant, calm, and cooperative throughout shift. Alert to self and place, but was unsure of date. Patient denied any complaints of pain all night. Patient required redirection several times throughout the night to leave her continuous pulse ox on. Patient required assistance twice to get up to the bedside commode, pt O2 dropped into the low 80's with RR being 25-30 upon exertion when transferring from bed to commode. PT O2 recovered quickly once resting in bed.
--- NOTE | 2019-11-26 06:28 | PC.NURSE ---
PT O2 sats dropping in low 80's during sleep. O2 increased to 9L. PT O2 sat now holding at 98%.
[2019-11-26 06:33] LABS: Basophils % 0.2 %; Hematocrit 37.4 % (37.0-47.0); Hemoglobin 12.4 g/dL (11.5-15.3); Lymphocytes # 0.7 10^3/uL (0.8-4.8); Lymphocytes % 5.8 %; Mean Corpuscular HGB Conc 33.2 g/dL (30.0-36.0); Mean Corpuscular Hemoglobin 31.6 pg (28.0-34.0); Mean Corpuscular Volume 95.4 fL (81-99); Mean Platelet Volume 10.4 fL (7.4-10.4); Monocytes # 0.5 10^3/uL (0.2-0.9); Monocytes % 4.2 %; Neutrophils # 9.97 10^3/uL (1.8-7.7); Neutrophils % 78.9 %; Nucleated Red Blood Cells # 0.1 /100WBC; Platelet Count 332 10^3/cmm (130-400); Red Blood Count 3.92 10^6/uL (4.1-5.3); Red Cell Distribution Width 13.9 % (12.1-15.1); White Blood Count 12.6 10^3/uL (4.0-10.0)
[2019-11-26 06:55] LABS: Glucose Point of Care 87 mg/dL (70-110)
[2019-11-26 07:16] LABS: C Reactive Protein 24.3 mg/L (0.0-4.9); Lactate Dehydrogenase 547 U/L (135-214)
[2019-11-26 07:23] LABS: Alanine Aminotransferase 50 U/L (0-33); Albumin Level 3.3 g/dL (3.5-5.2); Alkaline Phosphatase 230 IU/L (35-105); Anion Gap 15.2 (5-19); Aspartate Amino Transferase 48 U/L (0-32); Blood Urea Nitrogen 22 mg/dL (6-20); Calcium 8.3 mg/dL (8.5-10.5); Carbon Dioxide 29 mmol/L (22-29); Chloride 98 mmol/L (98-107); Creatinine Clr Calc Pharmacy 152.0526; Globulin 2.9 g/dL (1.3-4.6); Glomerular Filtration Rate 105.8 mL/min (90-130); Glucose 81 mg/dL (65-115); Osmolality Calculated 288 mOsm/kg (285-295); Potassium 4.2 mmol/L (3.5-5.1); Sodium 138 mmol/L (136-145); Total Bilirubin 0.6 mg/dL (0.15-1.2); Total Protein 6.2 g/dL (6.6-8.7)
[2019-11-26 07:25] LABS: Fibrinogen 549 mg/dL (174-498)
[2019-11-26 07:28] LABS: D Dimer 1.18 ug/mIFEU (0-0.59)
[2019-11-26 07:42] LABS: Ferritin 1832 ng/mL (15-150)
[2019-11-26] MEDS: albuterol 8 gm MDI 2 PUFF INHALATION ×2 (07:53→19:18)
[2019-11-26 07:54] LABS: Slide Review Slide Review Perform
[2019-11-26] MEDS: zinc gluconate 50 mg Tablet PO (09:09)
[2019-11-26] MEDS: ascorbic acid 500 mg Tablet PO (09:09)
[2019-11-26] MEDS: benzonatate 100 mg Capsule PO ×3 (09:09→22:45)
[2019-11-26] MEDS: levothyroxine 150 mcg Tablet PO (09:09)
[2019-11-26] MEDS: ferrous gluconate 324 mg Tablet PO ×2 (09:10→17:05)
--- NOTE | 2019-11-26 10:30 | P.PN_ITS ---
Subjective Subjective: Interval history: .No acute events overnight. Patient has remained comfortable. On examination patient is lying comfortably in bed and having her food. Overnight she was increased up to 7 L to maintain a saturation over 90%. On my exam she is saturating 93% on just 3 L nasal cannula high flow. As per the nurse patient's appetite has been good and drinking well as well. Patient is able to walk to the bathroom without any difficulty Vitals/I&O/Wt Last Vital Signs Temp 98.0 F 11/26/19 03:00 Pulse 76 11/26/19 07:55 Resp 20 H 11/26/19 07:44 BP 119/84 11/26/19 06:23 Pulse Ox 99 11/26/19 07:44 11/25/19 11/26/19 11/26/19 22:59 06:59 14:59 Intake Total 820 / 1730 240 / 1970 530 / 530 Output Total 1950 / 2750 1700 / 4450 900 / 900 Balance -1130 / -1020 -1460 / -2480 -370 / -370 Weight last 48 hrs Weight 85.865 kg Weight 87.657 kg Weight 892.216 kg Physical Exam Narrative: EXAM NARRATIVE: General: No acute distress, typical facies of trisomy 13 syndrome, following simple commands HEENT: PERRLA, pupils bilaterally equal and reactive Chest: Bronchial breath sounds bilaterally, left more than right, anterior more than posterior, coarse crackles, equal good air entry bilaterally CVS: S1-S2 regular, no murmurs, no tachycardia, no gallops, no rubs Abdomen: Soft, nontender, no organomegaly, bowel sounds present Neuro: Moving all 4 limbs appropriately. Data : 11/26/19 04:40 11/26/19 04:40 Micro: Microbiology 11/22/19 20:00 Blood Culture - Preliminary Blood Coagulase negativ staphylococc 11/24/19 12:50 Blood Culture - Preliminary Blood NEGATIVE TO DATE 11/24/19 11:45 Blood Culture - Preliminary Blood NEGATIVE TO DATE A&P Assessment and plan (1) COVID-19: Status: Acute (2) Acute respiratory failure with hypoxia: Status: Acute (3) Warfarin anticoagulation: Status: Acute (4) History of DVT (deep vein thrombosis): Status: Chronic (5) Type 2 diabetes mellitus with unspecified complications: Status: Chronic (6) Trisomy 21 syndrome: Status: Chronic (7) Hyperlipemia: Status: Chronic Qualifiers: Hyperlipidemia type: mixed hyperlipidemia Qualified Code(s): E78.2 - Mixed hyperlipidemia (8) Hypothyroidism: Status: Chronic Qualifiers: Hypothyroidism type: acquired Qualified Code(s): E03.9 - Hypothyroidism, unspecified (9) Supratherapeutic INR: Status: Acute Additional A&P Information Acute hypoxic respiratory failure because of COVID-19 pneumonia: At least moderate disease as patient is requiring at least 2 to 4 L of oxygen supplementation to keep saturation over 90%. Continue to monitor inflammatory markers daily. Monitor ferritin level, fibrinogen level, d-dimer level, CRP, LDH daily. CTA negative for PE. Inflammatory markers improving except mild elevation in sed rate levels. Last day of Remdesevir to finish a 5 day course. C/w dexamethasone 6 mg IV daily. Continue with Tessalon Perles, vitamin C, zinc. Advair, Spiriva. Procalcitonin within normal limits, no consolidation on chest imaging concerning for active pneumonia. For now hold off on any further antibiotics. Legionella negative, bacterial antigen negative. Blood cultures from day of admission 1 out of 4 bottles positive for GPC. Likely contaminant. Repeat blood cultures have remained negative. MRSA negative. Patient has remained afebrile. Urine Legionella and bacterial antigens have been negative. White count mildly elevated today. Procai is negative. For now we will continue with levofloxacin will last dose of antibiotic today Patient most likely has baseline sleep apnea. Which has been undiagnosed. Have discussed with patient's caregiver to be tested as an outpatient for possible arrangement of CPAP. Oxygen supplementation keeping saturation over 90%. We will try to wean oxygen gradually. Patient having good amount of urine output. Net mildly negative. Sodium levels are stable. We will continue to monitor. Supratherapeutic INR: Patient is on warfarin for chronic DVT. INR improving today. 2.5 today. Start patient on Lovenox 1 mg/kg body weight every 12 hourly. Not sure if there is any interaction between warfarin and Remdesevir. So we will hold off on warfarin for now. Liver functions mildly deranged but improving. Monitor INR daily. Pharmacy consult for INR monitoring. Down syndrome/trisomy 21 syndrome: Patient is at baseline. One-to-one sitter. Ms. Bridgett Goodman is patient's caregiver. Her phone number is [phone]. She states for now patient would be full code and they are okay with intubation and chest compressions if required. They would not want anything for prolonged period. Type 2 diabetes mellitus: Blood sugars check before meals and at bedtime. Carb consistent diet. Insulin sliding scale at moderate dose. Continue chronic medication like iron supplementation, fenofibrate, magnesium, montelukast, levothyroxine. Carb consistent diet. Warfarin will help with DVT prophylaxis as well. Famotidine for PUD prophylaxis. Full code. Discharge planning: Today will be the last dose of antiviral treatment. Patient's oxygen requirement has either been coming down or has remained stable. Inflammatory markers have remained stable. Plan to switch over to oral steroids tomorrow and monitor for 24 more hours after that and if patient continues to remain stable we will plan to discharge her at that point. All the above was discussed in detail with patient's caregiver Ms. Hobson. We will try to arrange for home health as per the caregivers request for further assistance in care of patient at home. Patient would most likely require oxygen at home. All the questions regarding the treatment plan, discharge planning and quarantine were answered. Attestations Medical Necessity Statement*: Supratherapeutic INR, acute hypoxic respiratory failure due to covered pneumonia, Down syndrome Time Spent in Patient Care: Greater than 35 minutes (>than 50% of time spent in counselling and/or direct pt care on unit) . 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
--- NOTE | 2019-11-26 11:31 | XR_ITS ---
WS: [id number] Portable AP upright chest, 11/26/2019 Clinical Data: covid Comparison: Portable chest, 11/24/2019. Findings: The patchy bilateral opacities have diminished. The right lung is almost totally clear. No nodules, masses or effusions are seen. The heart is likely enlarged. The pulmonary vascularity is not increased. No pneumothorax is seen. Monitor leads are on the chest wall. XR/XR chest 1V portable [id number] Impression: 1. Partial clearing of bilateral patchy opacities which probably represents an improvement in pneumonia. 2. Mild cardiomegaly.
[2019-11-26 11:32] LABS: Glucose Point of Care 206 mg/dL (70-110)
[2019-11-26 11:43] LABS: INR 2.51 (0.8-1.2)
[2019-11-26 15:31] LABS: Glucose Point of Care 223 mg/dL (70-110)
[2019-11-26 21:37] LABS: Glucose Point of Care 76 mg/dL (70-110)
[2019-11-26] MEDS: enoxaparin 100 mg/mL Syringe 90 MG SUBCUT (22:45)
[2019-11-26] MEDS: montelukast sodium 10 mg Tablet PO (22:45)
[2019-11-27] VITALS (18 sets, daily range): BP systolic 86–132; BP diastolic 47–91; PULSE 70–93; RESP 16–39; TEMP 36.6–36.7; O2SAT 90–100
--- NOTE | 2019-11-27 02:20 | PC.NURSE ---
pt resting with eyes closed, will not disturb patient at this time
--- NOTE | 2019-11-27 02:30 | PC.NURSE ---
Pt had accucheck of 76, did give patient a juice to drink and some peanut butter crackers as to maintain her blood sugar throughout the night.
[2019-11-27] MEDS: piperacillin-tazobactam 3.375 GM in sodium chloride 0.9% (plus) 50 ML IV (03:37)
[2019-11-27 04:31] LABS: Basophils % 0.3 %; Eosinophils % 0.2 %; Hematocrit 39.6 % (37.0-47.0); Lymphocytes # 1.1 10^3/uL (0.8-4.8); Lymphocytes % 8.8 %; Mean Corpuscular HGB Conc 32.8 g/dL (30.0-36.0); Mean Corpuscular Hemoglobin 31.5 pg (28.0-34.0); Mean Corpuscular Volume 95.9 fL (81-99); Mean Platelet Volume 10.6 fL (7.4-10.4); Monocytes # 0.6 10^3/uL (0.2-0.9); Monocytes % 4.6 %; Neutrophils % 77.1 %; Nucleated Red Blood Cells # 0.1 /100WBC; Nucleated Red Blood Cells % 0.7 %; Platelet Count 342 10^3/cmm (130-400); Red Blood Count 4.13 10^6/uL (4.1-5.3); Red Cell Distribution Width 13.9 % (12.1-15.1); White Blood Count 12.3 10^3/uL (4.0-10.0)
[2019-11-27 04:55] LABS: Alanine Aminotransferase 46 U/L (0-33); Albumin Level 3.2 g/dL (3.5-5.2); Alkaline Phosphatase 222 IU/L (35-105); Anion Gap 15.5 (5-19); Aspartate Amino Transferase 39 U/L (0-32); Blood Urea Nitrogen 25 mg/dL (6-20); C Reactive Protein 36.5 mg/L (0.0-4.9); Calcium 8.3 mg/dL (8.5-10.5); Carbon Dioxide 28 mmol/L (22-29); Chloride 98 mmol/L (98-107); Globulin 2.7 g/dL (1.3-4.6); Glomerular Filtration Rate 88.6 mL/min (90-130); Glucose 128 mg/dL (65-115); Lactate Dehydrogenase 472 U/L (135-214); Osmolality Calculated 290 mOsm/kg (285-295); Potassium 4.5 mmol/L (3.5-5.1); Sodium 137 mmol/L (136-145); Total Bilirubin 0.7 mg/dL (0.15-1.2); Total Protein 5.9 g/dL (6.6-8.7)
[2019-11-27 05:16] LABS: D Dimer 1.51 ug/mIFEU (0-0.59)
[2019-11-27 05:18] LABS: Ferritin 1575 ng/mL (15-150)
[2019-11-27 05:43] LABS: Fibrinogen 547 mg/dL (174-498)
[2019-11-27 06:20] LABS: INR 2.25 (0.8-1.2)
[2019-11-27 07:33] LABS: Glucose Point of Care 107 mg/dL (70-110)
--- NOTE | 2019-11-27 07:48 | PC.NURSE ---
Report given to MANUEL Monzon in SBAR format
[2019-11-27] MEDS: zinc gluconate 50 mg Tablet PO (07:59)
[2019-11-27] MEDS: ferrous gluconate 324 mg Tablet PO ×2 (07:59→16:59)
[2019-11-27] MEDS: ascorbic acid 500 mg Tablet PO (07:59)
[2019-11-27] MEDS: levothyroxine 150 mcg Tablet PO (07:59)
[2019-11-27] MEDS: benzonatate 100 mg Capsule PO ×3 (07:59→21:55)
--- NOTE | 2019-11-27 09:13 | P.PN_ITS ---
Subjective Subjective: Interval history: Patient has remained comfortable. Denies of any nausea, vomiting, headache. No acute events. On examination lying comfortably in bed saturating 95% on 4 L nasal cannula. Patient has finished course of antiviral yesterday. Plan will be to switch on to oral steroids today, walk around to see how much oxygen supplementation will be required on ambulation. If she remains stable plan will be to discharge her tomorrow with home health. Vitals/I&O/Wt Last Vital Signs Temp 98.1 F 11/27/19 08:28 Pulse 72 11/27/19 06:00 Resp 19 H 11/27/19 06:00 BP 132/69 11/27/19 06:00 Pulse Ox 92 11/27/19 06:00 11/26/19 11/27/19 11/27/19 22:59 06:59 14:59 Intake Total 340 / 1520 122 / 1642 360 / 360 Output Total 1025 / 2600 Balance -685 / -1080 122 / -958 360 / 360 Weight last 48 hrs Weight 83.121 kg Weight 85.865 kg Weight 87.657 kg Physical Exam Narrative: EXAM NARRATIVE: General: No acute distress, typical facies of trisomy 13 syndrome, following simple commands HEENT: PERRLA, pupils bilaterally equal and reactive Chest: Bronchial breath sounds bilaterally, left more than right, anterior more than posterior, coarse crackles, equal good air entry bilaterally CVS: S1-S2 regular, no murmurs, no tachycardia, no gallops, no rubs Abdomen: Soft, nontender, no organomegaly, bowel sounds present Neuro: Moving all 4 limbs appropriately. Data : 11/27/19 03:45 11/27/19 03:45 A&P Assessment and plan (1) COVID-19: Status: Acute (2) Acute respiratory failure with hypoxia: Status: Acute (3) Warfarin anticoagulation: Status: Acute (4) History of DVT (deep vein thrombosis): Status: Chronic (5) Type 2 diabetes mellitus with unspecified complications: Status: Chronic (6) Trisomy 21 syndrome: Status: Chronic (7) Hyperlipemia: Status: Chronic Qualifiers: Hyperlipidemia type: mixed hyperlipidemia Qualified Code(s): E78.2 - Mixed hyperlipidemia (8) Hypothyroidism: Status: Chronic Qualifiers: Hypothyroidism type: acquired Qualified Code(s): E03.9 - Hypothyroidism, unspecified (9) Supratherapeutic INR: Status: Acute Additional A&P Information Acute hypoxic respiratory failure because of COVID-19 pneumonia: At least moderate disease as patient is requiring at least 2 to 4 L of oxygen supplementation to keep saturation over 90%. Continue to monitor inflammatory markers daily. Monitor ferritin level, fibrinogen level, d-dimer level, CRP, LDH daily. CTA negative for PE. Inflammatory markers improving except mild elevation in sed rate levels. Finished course of Remdesevir for overall 5 days. Switch dexamethasone to oral prednisone 40 mg daily. Will need slow taper as an outpatient. Continue with Tessalon Perles, vitamin C, zinc. Advair, Spiriva. Procalcitonin within normal limits, no consolidation on chest imaging concerning for active pneumonia. For now hold off on any further antibiotics. Legionella negative, bacterial antigen negative. Blood cultures from day of admission 1 out of 4 bottles positive for GPC. Likely contaminant. Repeat blood cultures have remained negative. MRSA negative. Patient has remained afebrile. Urine Legionella and bacterial antigens have been negative. White count mildly elevated today. Procai is negative. Levofloxacin has been stopped after 5-day course. Patient most likely has baseline sleep apnea. Which has been undiagnosed. Have discussed with patient's caregiver to be tested as an outpatient for possible arrangement of CPAP. Oxygen supplementation keeping saturation over 90%. We will try to wean oxygen gradually. Patient having good amount of urine output. Net mildly negative. Sodium levels are stable. We will continue to monitor. Supratherapeutic INR: Patient is on warfarin for chronic DVT. INR stable. Antiviral course are finished. As INR is still more than 2 we will switch full dose Lovenox to home dose of warfarin for patient. Not sure if there is any interaction between warfarin and Remdesevir. So we will hold off on warfarin for now. Liver functions mildly deranged but improving. Monitor INR daily. Pharmacy consult for INR monitoring. Down syndrome/trisomy 21 syndrome: Patient is at baseline. One-to-one sitter. Ms. Bridgett Goodman is patient's caregiver. Her phone number is [phone]. She states for now patient would be full code and they are okay with intubation and chest compressions if required. They would not want anything for prolonged period. Type 2 diabetes mellitus: Blood sugars check before meals and at bedtime. Carb consistent diet. Insulin sliding scale at moderate dose. Continue chronic medication like iron supplementation, fenofibrate, magnesium, montelukast, levothyroxine. Carb consistent diet. Warfarin will help with DVT prophylaxis as well. Famotidine for PUD prophylaxis. Full code. Discharge planning: Patient has finished 5-day course of antiviral treatment. She has remained stable. Requiring stable amount of oxygen supplementation. Plan will be to switch over to oral steroids today. Ambulate in the unit. And if she remains stable tomorrow we will plan to discharge home with home health after home O2 evaluation. All the above was discussed in detail with patient's caregiver Ms. Hobson. We will try to arrange for home health as per the caregivers request for further assistance in care of patient at home. Patient would most likely require oxygen at home. All the questions regarding the treatment plan, discharge planning and quarantine were answered. Attestations Medical Necessity Statement*: Acute hypoxic respiratory failure because of COVID-19 pneumonia, resolving ARDS, Time Spent in Patient Care: Greater than 35 minutes (>than 50% of time spent in counselling and/or direct pt care on unit) . Coding Level of Care Code Acute Sole Stapler Welt for [facility]g Fwd Diagnoses COVID-19 U07.1 Acute respiratory failure with hypoxia J96.01 Warfarin anticoagulation Z79.01 History of DVT (deep vein thrombosis) Z86.718 Type 2 diabetes mellitus with unspecified complications E11.8 Trisomy 21 syndrome Q90.9 Hyperlipemia E78.2 Hyperlipidemia type: mixed hyperlipidemia Hypothyroidism E03.9 Hypothyroidism type: acquired Supratherapeutic INR R79.1
[2019-11-27] MEDS: albuterol 8 gm MDI 2 PUFF INHALATION ×2 (09:44→19:15)
--- NOTE | 2019-11-27 09:49 | PC.SOCIAL ---
IMM Updated Updated pt's guardian on Pg 2 IMM. No questions voiced. Signed, dated, & timed the copy in the chart.
[2019-11-27] MEDS: predniSONE 20 mg Tablet 40 MG PO (09:58)
--- NOTE | 2019-11-27 11:13 | PC.NURSE ---
[facility] pharmacy, [facility], called and notified of D/C 11/28/2019. Dr. Meraz request meds to bed today due to pharmacy hours.
--- NOTE | 2019-11-27 11:18 | PC.NURSE ---
report and handoff to MANUEL Guerrero.
[2019-11-27 11:48] LABS: Glucose Point of Care 137 mg/dL (70-110)
[2019-11-27] MEDS: warfarin 2 mg Tablet PO (13:53)
[2019-11-27 16:52] LABS: Glucose Point of Care 259 mg/dL (70-110)
[2019-11-27 20:30] LABS: Glucose Point of Care 219 mg/dL (70-110)
[2019-11-27] MEDS: nystatin 100,000 unit/mL UDC 5 mL 100000 UNIT PO (21:55)
[2019-11-27] MEDS: insulin glargine 100 units/1 mL 10 UNIT SUBCUT (21:55)
[2019-11-27] MEDS: montelukast sodium 10 mg Tablet PO (21:55)
[2019-11-28] VITALS (9 sets, daily range): BP systolic 104–140; BP diastolic 72–89; PULSE 72–94; RESP 13–35; TEMP 36.8; O2SAT 87–96
[2019-11-28 06:23] LABS: Basophils % 0.3 %; Eosinophils # 0.1 10^3/uL (0.0-0.8); Eosinophils % 0.6 %; Hematocrit 39.4 % (37.0-47.0); Lymphocytes # 0.8 10^3/uL (0.8-4.8); Lymphocytes % 6.8 %; Mean Corpuscular Hemoglobin 31.7 pg (28.0-34.0); Mean Corpuscular Volume 96.1 fL (81-99); Mean Platelet Volume 10.6 fL (7.4-10.4); Monocytes # 0.5 10^3/uL (0.2-0.9); Monocytes % 3.9 %; Neutrophils # 9.47 10^3/uL (1.8-7.7); Nucleated Red Blood Cells % 0.3 %; Platelet Count 331 10^3/cmm (130-400); Red Cell Distribution Width 13.6 % (12.1-15.1); White Blood Count 11.6 10^3/uL (4.0-10.0)
[2019-11-28 07:03] LABS: Alanine Aminotransferase 38 U/L (0-33); Albumin Level 3.2 g/dL (3.5-5.2); Alkaline Phosphatase 211 IU/L (35-105); Anion Gap 15.2 (5-19); Aspartate Amino Transferase 31 U/L (0-32); Blood Urea Nitrogen 19 mg/dL (6-20); Calcium 8.5 mg/dL (8.5-10.5); Carbon Dioxide 27 mmol/L (22-29); Chloride 98 mmol/L (98-107); Creatinine Clr Calc Pharmacy 148.8492; Fibrinogen 658 mg/dL (174-498); Globulin 3.4 g/dL (1.3-4.6); Glomerular Filtration Rate 105.8 mL/min (90-130); Glucose 79 mg/dL (65-115); Osmolality Calculated 283 mOsm/kg (285-295); Potassium 4.2 mmol/L (3.5-5.1); Sodium 136 mmol/L (136-145); Total Bilirubin 0.6 mg/dL (0.15-1.2); Total Protein 6.6 g/dL (6.6-8.7)
[2019-11-28 07:05] LABS: D Dimer 1.21 ug/mIFEU (0-0.59)
[2019-11-28 07:11] LABS: C Reactive Protein 59.8 mg/L (0.0-4.9); Lactate Dehydrogenase 508 U/L (135-214)
[2019-11-28 07:23] LABS: Ferritin 1707 ng/mL (15-150)
[2019-11-28 07:38] LABS: Glucose Point of Care 96 mg/dL (70-110)
[2019-11-28 07:43] LABS: Slide Review Slide Review Perform
[2019-11-28 08:24] LABS: INR 2.21 (0.8-1.2)
[2019-11-28] MEDS: zinc gluconate 50 mg Tablet PO (08:31)
[2019-11-28] MEDS: ascorbic acid 500 mg Tablet PO (08:31)
[2019-11-28] MEDS: ferrous gluconate 324 mg Tablet PO (08:31)
[2019-11-28] MEDS: nystatin 100,000 unit/mL UDC 5 mL 100000 UNIT PO (08:31)
[2019-11-28] MEDS: benzonatate 100 mg Capsule PO (08:31)
[2019-11-28] MEDS: predniSONE 20 mg Tablet 40 MG PO (08:31)
[2019-11-28] MEDS: levothyroxine 150 mcg Tablet PO (08:31)
[2019-11-28] MEDS: albuterol 8 gm MDI 2 PUFF INHALATION (09:10)
--- NOTE | 2019-11-28 10:30 | P.DS_ITS ---
Discharge Providers Date of Admission: 11/22/19 13:32 Date of Discharge: November 28, 2019 Attending Provider at Admission: Oleg Meraz MD Attending Provider at Discharge: Oleg Meraz MD Primary Care Provider: Janell Gtz MD Diagnoses at Discharge Discharge Diagnosis (1) COVID-19: Status: Acute (2) Acute respiratory failure with hypoxia: Status: Acute (3) Warfarin anticoagulation: Status: Acute (4) History of DVT (deep vein thrombosis): Status: Chronic (5) Type 2 diabetes mellitus with unspecified complications: Status: Chronic (6) Trisomy 21 syndrome: Status: Chronic (7) Hyperlipemia: Status: Chronic Qualifiers: Hyperlipidemia type: mixed hyperlipidemia Qualified Code(s): E78.2 - Mixed hyperlipidemia (8) Hypothyroidism: Status: Chronic Qualifiers: Hypothyroidism type: acquired Qualified Code(s): E03.9 - Hypothyroidism, unspecified (9) Supratherapeutic INR: Status: Acute Reason for Visit Reason for Visit: SOB Hospital Course Discharge Summary: Jillian Cha is a 49 year old female with past medical history of Down syndrome, trisomy 21 syndrome, hypothyroidism, type 2 diabetes mellitus on diet restriction, DVT, chronic anticoagulation with warfarin, dementia who was brought in today by her caregiver because of difficulty in breathing. Most of the history taken via phone with . Jazlyn Goodman on [phone] who is patient's caregiver. At baseline patient is able to take care of herself, goes to workshop daily. As per the caregiver last she went to the workshop was on November 15. From November 16 patient started having some low-grade fevers, diarrhea, muscle aches, occasional cough. As per the caregiver multiple people at her workshop have tested positive for COVID-19. As per the caregiver patient has been complaining of mild chest pain on taking a deep breath because of which she is not taking deep breath. Today they went to her primary care provider's office to check for COVID-19 where she was found to be hypoxic persistently on room air and minimal oxygen supplementation so she was sent to the ER. Patient was also taken to the primary care's office/urgent care on with a blood work was done and she was found to be leukopenic but not requiring any oxygen. In the ER, she was found to have oxygen saturation in high 70s and low 80s on room air which improved to more than 91 on 3 L of oxygen supplementation. Blood work done shows a white count of 5.8, hemoglobin of 12.7, platelet count of 219, INR of 2.4, d-dimer 0.81, sodium of 138, creatinine of 0.7, AST/ALT of 73/49, alkaline phosphatase of 374, rapid COVID-19 antigen positive. She was admitted to the viral ICU and started on antiviral treatment with Remdesivir along with IV steroids, vitamin C and zinc and inhalers. She responded well to the treatment. Her oxygen requirements and inflammatory markers continue to trend down. She has finished a 5-day course and after that she was transitioned over to oral steroids and monitored for 24 hours. During hospitalization her warfarin was withheld as there is no data about interaction with the antiviral treatment along with warfarin. Her INR did go up to 3.8 after first dose of warfarin while in-house after which INR was daily monitored and once it was less than 2.5 she was started on full dose Lovenox. Since antiviral treatment has been completed she is back on warfarin and INR has remained stable. She is been discharged in hemodynamically stable condition with home health. Home oxygen evaluation has been done prior to discharge. She is advised to follow-up with her primary care provider within next 1 to 3 days and to check her INR within next 3 to 7 days. She is also advised to continue maintaining social distancing and to be in quarantine for next 2 weeks. She is advised to wear mask whenever she is in public. All the medications have been provided to her with meds to bed. Physical Exam Narrative: EXAM NARRATIVE: General: No acute distress, typical facies of trisomy 13 syndrome, following simple commands HEENT: PERRLA, pupils bilaterally equal and reactive Chest: Bronchial breath sounds bilaterally, left more than right, anterior more than posterior, coarse crackles, equal good air entry bilaterally CVS: S1-S2 regular, no murmurs, no tachycardia, no gallops, no rubs Abdomen: Soft, nontender, no organomegaly, bowel sounds present Neuro: Moving all 4 limbs appropriately. Discharge Data Data Completed and Pending: Completed Studies During Hospitalization Category Date Time Status CT angio chest PE protcl [id number] Stat Cat Scan 11/22/19 13:30 Completed XR chest 1V amanda ble [id number] Q48H Exams 11/24/19 11:31 Completed XR chest 1V amanda ble [id number] Q48H Exams 11/26/19 11:31 Completed XR chest 1V amanda ble [id number] Q48H Exams 11/28/19 11:31 Completed XR chest 1V amanda ble [id number] Stat Exams 11/22/19 11:30 Completed Pending at discharge Category Date Time Status Blood Culture Sta t Lab 11/22/19 20:00 Results Blood Culture Sta t Lab 11/24/19 12:50 Results Prothrombin Time INR AM LABS Lab 11/29/19 04:00 Ordered Sputum Culture an d Gram Stain Routi ne Lab 11/25/19 10:53 Uncollected Labs from last 24 hours 11/28/19 11/28/19 11/28/19 07:29 03:45 03:45 WBC RBC Hgb Hct MCV MCH MCHC RDW Plt Count MPV Neut % (Auto) Lymph % (Auto) [place] % (Auto) Eos % (Auto) Baso % (Auto) Neut # (Auto) Lymph # (Auto) [place] # (Auto) Eos # (Auto) Baso # (Auto) Nucleated RBC % (a uto) Nucleated RBCs # PT 25.30 H INR 2.21 H Fibrinogen D-Dimer Sodium Potassium Chloride Carbon Dioxide Anion Gap BUN Creatinine GFR Calculation Glucose POC Glucose 96 Calculated Osmolal ity Calcium Ferritin 1707 H Total Bilirubin AST ALT Alkaline Phosphata se Lactate Dehydrogen ase 508 H C-Reactive Protein 59.8 H Total Protein Albumin Globulin 11/28/19 11/28/19 11/28/19 03:45 03:45 03:45 WBC 11.6 H RBC 4.10 Hgb 13.0 Hct 39.4 MCV 96.1 MCH 31.7 MCHC 33.0 RDW 13.6 Plt Count 331 MPV 10.6 H Neut % (Auto) 82.0 Lymph % (Auto) 6.8 [place] % (Auto) 3.9 Eos % (Auto) 0.6 Baso % (Auto) 0.3 Neut # (Auto) 9.47 H Lymph # (Auto) 0.8 [place] # (Auto) 0.5 Eos # (Auto) 0.1 Baso # (Auto) 0.0 Nucleated RBC % (a uto) 0.3 Nucleated RBCs # 0.0 PT INR Fibrinogen 658 H D-Dimer 1.21 H Sodium 136 Potassium 4.2 Chloride 98 Carbon Dioxide 27 Anion Gap 15.2 BUN 19 Creatinine 0.6 GFR Calculation 105.8 Glucose 79 POC Glucose Calculated Osmolal ity 283 L Calcium 8.5 Ferritin Total Bilirubin 0.6 AST 31 ALT 38 H Alkaline Phosphata se 211 H Lactate Dehydrogen ase C-Reactive Protein Total Protein 6.6 Albumin 3.2 L Globulin 3.4 11/27/19 11/27/19 11/27/19 20:03 16:32 11:28 WBC RBC Hgb Hct MCV MCH MCHC RDW Plt Count MPV Neut % (Auto) Lymph % (Auto) [place] % (Auto) Eos % (Auto) Baso % (Auto) Neut # (Auto) Lymph # (Auto) [place] # (Auto) Eos # (Auto) Baso # (Auto) Nucleated RBC % (a uto) Nucleated RBCs # PT INR Fibrinogen D-Dimer Sodium Potassium Chloride Carbon Dioxide Anion Gap BUN Creatinine GFR Calculation Glucose POC Glucose 219 259 137 Calculated Osmolal ity Calcium Ferritin Total Bilirubin AST ALT Alkaline Phosphata se Lactate Dehydrogen ase C-Reactive Protein Total Protein Albumin Globulin Vitals: Last Vital Signs Temp 97.8 F 11/27/19 19:39 Pulse 77 11/28/19 09:47 Resp 13 11/28/19 09:47 BP 140/82 11/28/19 05:33 Pulse Ox 88 L 11/28/19 10:11 Discharge Plan Discharge Patient Disposition: Home Health Service Condition: Stable Prescriptions: New Advair Diskus 250-50 mcg/dose Blister With Device 1 puff inhalation BID.RESPIRATORY Qty: 60 RF: 0 nystatin 100,000 unit/mL Suspension 100,000 unit PO QID Qty: 14 RF: 0 Vitamin C 500 mg Tablet 500 mg PO DAILY Qty: 30 RF: 0 benzonatate 100 mg Capsule 100 mg PO TID PRN (Reason: cough) Qty: 14 RF: 0 zinc gluconate 50 mg Tablet 50 mg PO DAILY 30 Days RF: 0 Spiriva with HandiHaler 18 mcg Capsule, W/Inhalation Device 18 mcg inhalation DAILY.RESPIRATORY Qty: 30 RF: 0 Medrol (Jose Ramon) 4 mg tablets,dose pack See Rx Instructions .ROUTE .COMPLEX Qty: 21 RF: 0 Continued omega-3 fatty acids [Fish Oil Concentrate] 1,000 mg capsule 1,000 mg PO DAILY RF: 0 multivitamin Tablet 1 tab PO DAILY RF: 0 magnesium 200 mg tablet 200 mg PO DAILY RF: 0 High Potency Iron 27 mg iron tablet 28 mg PO DAILY RF: 0 vitamin E (dl, acetate) 1,000 unit capsule 1,000 unit PO DAILY RF: 0 cetirizine 10 mg tablet 10 mg PO DAILY 30 Days Qty: 30 RF: 11 fenofibrate 160 mg tablet 160 mg PO DAILY 30 Days Qty: 30 RF: 11 fluticasone propionate [Flonase Allergy Relief] 50 mcg/actuation spray,suspension 1 spray INTRANASAL DAILY 30 Days Qty: 18.2 RF: 11 levothyroxine [Synthroid] 150 mcg tablet 150 mcg PO DAILY 30 Days Qty: 30 RF: 5 warfarin 1 mg tablet See Rx Instructions PO DAILY 30 Days Qty: 40 RF: 2 Vitamin D3 25 mcg (1,000 unit) Capsule 25 mcg PO DAILY RF: 0 Emergen-C 1,000 mg Powder Effervescent In Packet 1,000 mg PO BEDTIME RF: 0 Gwendolyn-[place] Extra Strength 500-1,985-1,000 mg Tablet, Effervescent 1 ea PO DAILY PRN (Reason: Cough) RF: 0 montelukast 10 mg tablet 10 mg PO BEDTIME RF: 0 Latuda 40 mg tablet 40 mg PO BEDTIME RF: 0 Discharge Orders: Discharge Order (Routine); Ordered 11/28/19 Ordered By: Oleg Meraz Other Ambulatory Orders: DME: Oxygen (Order) Location: None Selected Ordered By: Oleg Meraz Referrals: [facility] [place] [Outside] [facility] Home Care ([facility]) [Outside] Janell Gtz MD [Primary Care Provider] - 1-3 days Discharge Diet: Usual diet and Regular Discharge Activity: Resume usual activity and Increase activity as tolerated Activity Restrictions/Additional Instructions: She will be on 2 inhalers for next 2 weeks. Also on vitamin C and zinc for next 2 weeks. Please follow-up with your primary care provider within next 1 to 3 days. Repeat INR in 3-7 days. Oxygen has been arranged for you as per the home O2 evaluation. Please make sure to continue the quarantine for next 2 weeks. If you are in public or outside please make sure that you wear a mask. Discharge Attestations Time Spent in Discharge Care*: greater than 30 min Specific Discharge Activities: Specific discharge activities: educating and/or supporting family/caregiver, discussing with pcp/other providers, discussing with returned case inspector/social workers/dc planners, documenting/other paperwork and evaluating patient/reviewing data Status at Discharge: Cognitive status at discharge: mildly impaired cognition , Behavioral status at discharge: cooperative , Functional status at discharge: independent ambulation Overall status at discharge: patient is progressing back to baseline Quality Metrics Clinical Quality Measures During this hospital stay, did patient experience: None Coding Level of Care Code Acute Instrumental Musician for Chg Fwd Diagnoses COVID-19 U07.1 Acute respiratory failure with hypoxia J96.01 Warfarin anticoagulation Z79.01 History of DVT (deep vein thrombosis) Z86.718 Type 2 diabetes mellitus with unspecified complications E11.8 Trisomy 21 syndrome Q90.9 Hyperlipemia E78.2 Hyperlipidemia type: mixed hyperlipidemia Hypothyroidism E03.9 Hypothyroidism type: acquired Supratherapeutic INR R79.1
--- NOTE | 2019-11-28 11:31 | XRR_ITS ---
PROCEDURE INFORMATION: Exam: XR Chest, 1 View Exam date and time: 11/28/2019 4:58 AM Age: 49 years old Clinical indication: Dyspnea; Additional info: Covid TECHNIQUE: Imaging protocol: XR of the chest Views: 1 view. COMPARISON: CR XR chest 1V portable [id number] 11/26/2019 6:05 AM FINDINGS: Lungs: Bilateral scattered ground-glass infiltrates are present showing slight improvement. No consolidation. Pleural space: Unremarkable. No pleural effusion. No pneumothorax. Heart/Mediastinum: Unremarkable. No cardiomegaly. Bones/joints: Unremarkable. XR/XR chest 1V portable [id number] IMPRESSION: Slight improvement is seen.
[2019-11-28 11:51] LABS: Glucose Point of Care 136 mg/dL (70-110)
--- NOTE | 2019-11-30 13:58 | PC.SOCIAL ---
Post Discharge followup call. Spoke with Saadia Hobson. Jazlyn indicates overall patient is much imrpoved. Dr Gtz completed a phone visit with patient and guardian today. Advised to continue quarantine for next two weeks. Patient is on RA when idle and only requires O2 when up ambulating. She is eating well. [facility] nurse should be out today for first visit. Patient did get medication delivered to bedside prior to discharge. She is doing her breathing exercises per Jazlyn's report. She received her flu vaccine Tues prior to admission. She has been afebrile, no cough or extreme shortness of breaths. Slightly weaker and went to bed a little earlier than usual but has not been napping. Taking precautions while in home to sanitize areas such as bathroom after use etc. Pateint requires 24 hour care. Jazlyn is interested in the Plasma information and if patient meets criteria for donation will consider this. Reviewed new medications and Jazlyn has no questions or concerns. Advised to follow up with PCP if any concerns or welcome to call this nurse for any questions. Aydee felt she was kept informed while patient was in the hospital and care was good.
== END 2019-11-28 13:35 | disposition home health service (06) | DRG 177 ==
LOC: ER 12:18 → ICU 14:01
PROVIDERS: Family Medicine; Admitting Provider Student in an Organized Health Care Education/Training Program; PCP Family Medicine; Visit Provider Student in an Organized Health Care Education/Training Program
DX: U07.1 COVID-19 (principal); J12.89 Other viral pneumonia; J96.01 Acute respiratory failure with hypoxia; Q90.9 Down syndrome, unspecified; E03.9 Hypothyroidism, unspecified; E11.9 Type 2 diabetes mellitus without complications; Z86.718 Personal history of other venous thrombosis and embolism; Z79.01 Long term (current) use of anticoagulants; F03.90 Unspecified dementia, unspecified severity, without behavioral disturbance, psychotic disturbance, mood disturbance, and anxiety; F41.9 Anxiety disorder, unspecified; E78.2 Mixed hyperlipidemia; G47.30 Sleep apnea, unspecified
CPT/HCPCS: 12345; 36415; 36416; 36600; 71045; 71275; 80051; 80053; 80061; 82436; 82550; 82728; 82810; 82962; 83036; 83540; 83550; 83605; 83615; 83880; 83986; 84133; 84145; 84300; 84443; 84484; 85007; 85025; 85378; 85384; 85610; 86140; 86403; 87040; 87205; 87426; 87449; 87635; 87641; 87804; 93005; 94640; 94660; 94664; 96372; 96375; 99284; J1100; J1650; J1815 ×2; J2543; J3535; J7030; J7512; Q9967

== ENCOUNTER 2019-12-04 10:54 | Emergency (ER) | payer MEDICARE, MEDICAID, SELFPAY ==
[2019-12-04 11:23] VITALS: BP 90/56; PULSE 69; RESP 16; TEMP 36.8; O2SAT 98
--- NOTE | 2019-12-04 11:47 | ED_ITS ---
HPI - General Adult General: Chief complaint: Dental/Oral Stated complaint: Facial swelling, COVID+ Time Seen by Provider: 12/04/19 11:45 History of Present Illness: HPI narrative: Patient complains about right upper gum pain swelling right side of the face. Has history of dental caries. This been going on for last 3 to 4 days. complaint: Dental pain Onset (ago): day(s) Location: mouth Severity scale (1-10): 3 Quality: aching Associated symptoms: Deny chest pain, dyspnea, headache(s), nausea, rash or vomiting Review of Systems Const: Denies: fever(s), chills or body aches Eyes: Denies: change in vision or blurry vision ENMT: Reports: dental pain; Denies: throat pain or nasal congestion Card: Denies: chest pain or dyspnea on exertion Resp: Denies: dyspnea, productive cough or non-productive cough GI: Denies: abdominal pain, nausea or vomiting Musc: Denies: extremity pain Skin/Breast: Denies: rash Neuro: Denies: headache(s) Psych: Denies: anxiety or depression Chema/Lymph: Denies: easy bruising PFSH ED PFSH: Medical History (Updated 12/04/19 @ 11:46 by NEERAJ Rick) Allergic rhinitis Anticoagulation management encounter Chronic leukopenia Dementia in other diseases classified elsewhere without behavioral disturbance History of DVT (deep vein thrombosis) Hyperlipemia Hypothyroidism 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 Type 2 diabetes mellitus with unspecified complications Surgical History H/O arthroscopic knee surgery Family History Mother Diabetes Social History Smoking and tobacco status: never smoked Second hand smoke exposure: No Alcohol intake: never Adopted: No Lives independently: No Household members: family Female Reproductive History: Spontaneous abortions: No Physical Exam Const: COMMON NORMALS: no acute distress HENMT: FACE & SINUS: other (Mild swelling right upper gum sinus area slight tenderness) Psych: COMMON NORMALS: mental status grossly normal (Patient does have Down syndrome) Course Vital Signs: Vital signs: Vital Signs Temperature 98.2 F 12/04/19 11:51 Pulse Rate 69 12/04/19 11:51 Respiratory Rate 16 12/04/19 11:51 Blood Pressure 90/56 12/04/19 11:51 Pulse Oximetry 98 12/04/19 11:51 Discharge Plan Discharge Patient Disposition: Home Clinical Impression: Dental abscess Condition: Stable Prescriptions: New clindamycin HCl 300 mg capsule 300 mg PO TID 7 Days Qty: 21 RF: 0 tramadol 50 mg tablet 50 mg PO TID PRN (Reason: pain) Qty: 14 RF: 0 No Action omega-3 fatty acids [Fish Oil Concentrate] 1,000 mg capsule 1,000 mg PO DAILY RF: 0 multivitamin Tablet 1 tab PO DAILY RF: 0 magnesium 200 mg tablet 200 mg PO DAILY RF: 0 High Potency Iron 27 mg iron tablet 28 mg PO DAILY RF: 0 vitamin E (dl, acetate) 1,000 unit capsule 1,000 unit PO DAILY RF: 0 cetirizine 10 mg tablet 10 mg PO DAILY 30 Days Qty: 30 RF: 11 fenofibrate 160 mg tablet 160 mg PO DAILY 30 Days Qty: 30 RF: 11 levothyroxine [Synthroid] 150 mcg tablet 150 mcg PO DAILY 30 Days Qty: 30 RF: 5 warfarin 1 mg tablet See Rx Instructions PO DAILY 30 Days Qty: 40 RF: 2 amoxicillin-pot clavulanate [Augmentin] 875-125 mg tablet 1 tab PO BID 10 Days Qty: 20 RF: 0 Vitamin D3 25 mcg (1,000 unit) Capsule 25 mcg PO DAILY RF: 0 montelukast 10 mg tablet 10 mg PO BEDTIME RF: 0 Latuda 40 mg tablet 40 mg PO BEDTIME RF: 0 Advair Diskus 250-50 mcg/dose Blister With Device 1 puff inhalation BID.RESPIRATORY Qty: 60 RF: 0 nystatin 100,000 unit/mL Suspension 100,000 unit PO QID Qty: 14 RF: 0 Vitamin C 500 mg Tablet 500 mg PO DAILY Qty: 30 RF: 0 benzonatate 100 mg Capsule 100 mg PO TID PRN (Reason: cough) Qty: 14 RF: 0 zinc gluconate 50 mg Tablet 50 mg PO DAILY 30 Days RF: 0 Spiriva with HandiHaler 18 mcg Capsule, W/Inhalation Device 18 mcg inhalation DAILY.RESPIRATORY Qty: 30 RF: 0 Medrol (Jose Ramon) 4 mg tablets,dose pack See Rx Instructions .ROUTE .COMPLEX Qty: 21 RF: 0 Discharge Orders: Discharge Order (Routine); Ordered 12/04/19 Ordered By: Darion Donovan Referrals: Janell Gtz MD [Primary Care Provider] - Discharge Diet: Usual diet Discharge Activity: Increase activity as tolerated Patient Instructions: Dental Abscess (ED) Activity Restrictions/Additional Instructions: Follow-up with medical provider as directed. Take medications as prescribed. Return to the ER or your medical provider if condition worsens. Please read and understand discharge instructions. If any questions ask please. Discharge Date/Time: 12/04/19 12:00 Coding Level of Care Code ED Hospital Coordinator for Chg Fwd Exam Expanded Problem Focused
[2019-12-04 11:51] VITALS: BP 90/56; PULSE 69; RESP 16; TEMP 36.8; O2SAT 98
== END 2019-12-04 12:00 | disposition home or self-care (01) ==
PROVIDERS: Emergency Provider Nurse Practitioner Family; PCP Family Medicine
DX: K04.7 Periapical abscess without sinus (principal); Z79.01 Long term (current) use of anticoagulants; F03.90 Unspecified dementia, unspecified severity, without behavioral disturbance, psychotic disturbance, mood disturbance, and anxiety; E78.5 Hyperlipidemia, unspecified; E11.9 Type 2 diabetes mellitus without complications; Q90.9 Down syndrome, unspecified
CPT/HCPCS: 12345; 99281

== ENCOUNTER 2019-12-08 13:37 | Outpatient (CLI) | payer MEDICARE, MEDICAID, SELFPAY ==
[2019-12-08 14:48] LABS: INR 3.06 (0.8-1.2)
== END 2019-12-08 13:38 | disposition home or self-care (01) ==
LOC: LAB 13:41
PROVIDERS: PCP Family Medicine; Visit Provider Family Medicine
DX: Z86.718 Personal history of other venous thrombosis and embolism (principal)
CPT/HCPCS: 85610

== ENCOUNTER → 2019-12-16 08:44 | Outpatient (BNVA) | payer MEDICARE, MEDICAID, SELFPAY | PROVIDERS: PCP Family Medicine; Visit Provider Family Medicine | DX: Z79.01 Long term (current) use of anticoagulants (principal); Z51.81 Encounter for therapeutic drug level monitoring; Z86.718 Personal history of other venous thrombosis and embolism | CPT/HCPCS: 85610 ==

== ENCOUNTER 2020-01-06 13:20 | Outpatient (CLI) | payer MEDICARE, MEDICAID, SELFPAY ==
[2020-01-06 15:04] LABS: Basophils # 0.1 10^3/uL (0.0-0.1); Basophils % 2.8 %; Eosinophils # 0.1 10^3/uL (0.0-0.8); Eosinophils % 1.3 %; Hematocrit 41.6 % (37.0-47.0); Hemoglobin 12.9 g/dL (11.5-15.3); Lymphocytes # 1.2 10^3/uL (0.8-4.8); Lymphocytes % 30.2 %; Mean Corpuscular Hemoglobin 31.3 pg (28.0-34.0); Monocytes # 0.2 10^3/uL (0.2-0.9); Monocytes % 6.1 %; Neutrophils # 2.31 10^3/uL (1.8-7.7); Neutrophils % 59.1 %; Nucleated Red Blood Cells % 0 %; Platelet Count 237 10^3/cmm (130-400); Red Blood Count 4.12 10^6/uL (4.1-5.3); Red Cell Distribution Width 15.2 % (12.1-15.1); White Blood Count 3.9 10^3/uL (4.0-10.0)
--- NOTE | 2020-01-06 16:07 | ONC CON_ITS ---
Dr. Cuenca New Patient Note Patient: Jillian Cha Unit #: [id number]: 1970 Dicatated By: Anish Cuenca M.D.Date of Visit: Jan 06, 2020 Onc MED New Patient/Consult Referring Physician: Dr. Janell Gtz M.D. History of Present Illness: Ms. Jillian Cha, is a 49-year-old mentally challenged woman with a history of fluctuating leukopenia/neutropenia for couple of years, as per caregiver it was about 2 years ago her routine labs showed white blood count of around 2.8, since then it has been fluctuating up and down and the lowest was less than 1000 in October 2019 when she was diagnosed with Covid 19 infection and was admitted to hospital. As per caregiver that patient came to their facility about 5 years ago and she has been on antipsychotic medicine including lurasidone and and caregiver is aware of it is side effect including leukopenia. Patient is a poor historian, most of the history was available from caregiver, she denies any history of recurrent infections, she denies any history of repeated hospitalization until recently with COVID-19. Denies any weight loss denies any night sweats denies any recurrent fever, denies any abdominal fullness, denies any peripheral lymphadenopathy, denies any sore throat, denies any dysuria. Denies any alcohol use or smoking, denies any herbs intakes. Past Medical History: Ms. Cha's medical history consists of allergic rhinitis, COVID HOSPITILIZATION, dementia, history of DVT, hyperlipidemia, hypothyroidism, psychotic disorder with hallucinations, trisomy 21 syndrome, and type II diabetes. Past Surgical History: Ms. Tejadas surgical/procedural history consists of cholecystectomy and knee surgery. Medications: Cetirizine HCl 1 Tablet (of 10 mg) Oral daily, [facility] Fish Oil 1 Capsule (of 1000 mg) Oral daily, Fenofibrate 1 Tablet (of 160 mg) Oral daily, Ferrous Sulfate 1 Tablet (of 325 (65 fe) mg) Oral daily, Latuda 1 Tablet (of 40 mg) Oral daily, Magnesium 1 Capsule (of 250 mg) Oral daily, Montelukast Sodium 1 Tablet (of 10 mg) Oral daily, Multivitamin 1 Tablet Oral daily, Synthroid 1 Tablet (of 150 mcg) Oral daily, Vitamin C 2 Capsule (of 500 mg) Oral daily, Vitamin D3 1 Capsule (of 5000 IU) Oral daily, Vitamin E 1 Capsule (of 1000 IU) Oral daily, Warfarin Sodium Tablet Oral, Zinc 1 Tablet (of 50 mg) Oral daily Allergies: No Known Allergies. Social History: Ms. Cha is single and she is a disabled. Ms. Cha has never smoked. She has no history of drinking. Family History: Ms. Cha's mother at age 63: NATURAL CAUSES. Ms. Cha's father is alive. PT STATES GRANDMOTHER HAD CANCER BUT IS UNSURE OF WHAT TYPE. Review Of Symptoms: Constitutional - Appetite is good and weight is stable. No fever, night sweats, or hot flashes. Energy level is good, ENMT - No sinus congestion/drainage. No mouth sores. No sore throat. Positive for difficulty swallowing, Hematologic/Lymphatic - No abnormal bruising or bleeding, Respiratory - No shortness of breath. No cough. No pleuritic pain or hemoptysis, Cardiovascular - No angina pain. No palpitations, Gastrointestinal - No nausea or vomiting. No heartburn or acid reflux. No diarrhea or constipation. No blood in the stool or black stools, Genitourinary (F) - No dysuria or hematuria. No urinary frequency. No urgency or incontinence, Musculoskeletal - No joint or bone pain, Neurologic - No headache or dizziness. No numbness or tingling. No other focal neurologic symptoms, Psychiatric - No anxiety or depression. No insomnia. Vital Signs: Performed on Jan 06, 2020 15:08: 0, 59.01 (HIGH), 1.51 sq.m, 47.00 in, 100 %, 53 /min (LOW), 20 /min, 117/62 mm(hg), 97.5 F (LOW), and 185.4 lbs (HIGH). Performance Status: 1 - No physically strenuous activity, but ambulatory and able to carry out light or sedentary work (e.g. office work, light house work). (ECOG) Physical Examination: ENMT - No mouth sores, no thrush, no jaundice, Respiratory - Lungs are clear to auscultation, Cardiovascular - Regular rate and rhythm of heart, Abdomen - Soft, bowel sounds present, Extremities - No visible edema. Lab/Imaging: Most recent lab results are not available for this patient. Impression: History of isolated fluctuating leukopenia, initially diagnosed in 2018, baseline around 2.5-3k. 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 Trisomy 21 syndrome, Type 2 diabetes mellitus Hypothyroidism History of DVT Dementia Plan: Discussed with patient and her caregiver regarding her labs from today showed white blood count 3.9 hemoglobin 12.9 hematocrit 41.6 platelets 237,000 ANC 2310 Clinically, patient doing reasonably well, denies any new signs symptoms, no history of recurrent infections except recent hospitalization with Covid 19 at that time her white blood count, as per caregiver was less than 1000 and her repeat CBC done on November 16, 2019 showed white blood count 1.5 JACKSON globin 14.2 hematocrit 43.1 platelets 112,000 with ANC 970 and today's labs shows normal hemoglobin and platelets and white blood count near normal at 3900 with ANC 2310. So in October 2019 her white blood count may have gone down because of Covid infection and other possibility of chronic fluctuating leukopenia could be due to lurasidone and other concern is because of trisomy 21 syndrome which is sometimes associated with MDS/AML., After observing today's lab, will monitor her blood counts she will return to clinic in 1 month with CBC and if there is a drop in her white blood count, will consider B12 folic acid, copper level ultrasound abdomen to check spleen size and also consider holding lurasidone to rule out leukopenia due to lurasidone. If above-mentioned work-up remained inconclusive then will consider bone marrow evaluation to rule out underlying myelodysplasia Signed By: Anish Cuenca M.D. <<Signature on File>>
== END 2020-01-06 13:21 | disposition home or self-care (01) ==
LOC: ONCMED 13:27
PROVIDERS: PCP Family Medicine; Visit Provider Internal Medicine Hematology & Oncology
DX: D72.819 Decreased white blood cell count, unspecified (principal); Q90.9 Down syndrome, unspecified; E11.9 Type 2 diabetes mellitus without complications; E03.9 Hypothyroidism, unspecified; Z86.718 Personal history of other venous thrombosis and embolism; Z79.01 Long term (current) use of anticoagulants; F03.90 Unspecified dementia, unspecified severity, without behavioral disturbance, psychotic disturbance, mood disturbance, and anxiety; Z86.19 Personal history of other infectious and parasitic diseases; Z79.899 Other long term (current) drug therapy
CPT/HCPCS: 85025; 99203

== ENCOUNTER 2020-02-04 08:58 | Outpatient (CLI) | payer MEDICARE, MEDICAID, SELFPAY ==
[2020-02-04 09:40] LABS: Basophils # 0.1 10^3/uL (0.0-0.1); Basophils % 1.6 %; Eosinophils # 0.1 10^3/uL (0.0-0.8); Eosinophils % 1.6 %; Hematocrit 44.3 % (37.0-47.0); Hemoglobin 14.1 g/dL (11.5-15.3); Lymphocytes # 0.6 10^3/uL (0.8-4.8); Lymphocytes % 20.1 %; Mean Corpuscular HGB Conc 31.8 g/dL (30.0-36.0); Mean Corpuscular Hemoglobin 31.1 pg (28.0-34.0); Mean Corpuscular Volume 97.6 fL (81-99); Mean Platelet Volume 10.3 fL (7.4-10.4); Monocytes # 0.2 10^3/uL (0.2-0.9); Monocytes % 7.2 %; Neutrophils % 69.2 %; Nucleated Red Blood Cells % 0 %; Platelet Count 218 10^3/cmm (130-400); Red Blood Count 4.54 10^6/uL (4.1-5.3); Red Cell Distribution Width 14.2 % (12.1-15.1)
--- NOTE | 2020-02-04 12:07 | ONC FU_ITS ---
Dr. Cuenca follow up note Patient: Jillian Cha Unit #: [id number]: 1970 Dicatated By: Anish Cuenca M.D.Date of Visit:Feb 04, 2020 Onc Med Follow-up/Prog Note History of Present Illness: Ms. Jillian Cha, is a 49-year-old mentally challenged woman with a history of fluctuating leukopenia/neutropenia for couple of years, as per caregiver it was about 2 years ago her routine labs showed white blood count of around 2.8, since then it has been fluctuating up and down and the lowest was less than 1000 in October 2019 when she was diagnosed with Covid 19 infection and was admitted to hospital. As per caregiver that patient came to their facility about 5 years ago and she has been on antipsychotic medicine including lurasidone and and caregiver is aware of it is side effect including leukopenia. Patient is a poor historian, most of the history was available from caregiver, she denies any history of recurrent infections, she denies any history of repeated hospitalization until recently with COVID-19. Denies any weight loss denies any night sweats denies any recurrent fever, denies any abdominal fullness, denies any peripheral lymphadenopathy, denies any sore throat, denies any dysuria. Denies any alcohol use or smoking, denies any herbs intakes. Came for follow-up, denies any specific complaints, no fever chills, no nausea or vomiting, no diarrhea constipation, no recurrent infection, no sore throat, no dysuria Medications: Cetirizine HCl 1 Tablet (of 10 mg) Oral daily, [facility] Fish Oil 1 Capsule (of 1000 mg) Oral daily, Fenofibrate 1 Tablet (of 160 mg) Oral daily, Ferrous Sulfate 1 Tablet (of 325 (65 fe) mg) Oral daily, Latuda 1 Tablet (of 40 mg) Oral daily, Magnesium 1 Capsule (of 250 mg) Oral daily, Montelukast Sodium 1 Tablet (of 10 mg) Oral daily, Multivitamin 1 Tablet Oral daily, Synthroid 1 Tablet (of 150 mcg) Oral daily, Vitamin C 2 Capsule (of 500 mg) Oral daily, Vitamin D3 1 Capsule (of 5000 IU) Oral daily, Vitamin E 1 Capsule (of 1000 IU) Oral daily, Warfarin Sodium Tablet Oral, Zinc 1 Tablet (of 50 mg) Oral daily Allergies: No Known Allergies. Review of Systems: Constitutional - Appetite is good and weight is stable. No fever, night sweats, or hot flashes. Energy level is good, ENMT - No sinus congestion/drainage. No mouth sores. No sore throat. Positive for difficulty swallowing, Hematologic/Lymphatic - No abnormal bruising or bleeding, Respiratory - No shortness of breath. No cough. No pleuritic pain or hemoptysis, Cardiovascular - No angina pain. No palpitations, Gastrointestinal - No nausea or vomiting. No heartburn or acid reflux. No diarrhea or constipation. No blood in the stool or black stools, Genitourinary (F) - No dysuria or hematuria. No urinary frequency. No urgency or incontinence, Musculoskeletal - No joint or bone pain, Neurologic - No headache or dizziness. No numbness or tingling. No other focal neurologic symptoms, Psychiatric - No anxiety or depression. No insomnia. Vital Signs: Performed on Feb 04, 2020 10:10 Height - 47.00 in Weight - 185.0 lbs (LOW) BSA - 1.51 sq.m BMI - 58.88 (HIGH) Temperature - 97.5 F (LOW) Pulse - 60 /min Respiration - 22 /min BP - 118/76 mm(hg) O2 Sat - 99 % Pain - 0 Performance Status: 0 - Fully active, able to carry on all predisease activities without restrictions. (ECOG) Physical Examination: ENMT - No mouth sores, no thrush, no jaundice, Respiratory - Lungs are clear to auscultation, Cardiovascular - Regular rate and rhythm of heart, Abdomen - Soft, bowel sounds present, Extremities - No visible edema. Lab/Imaging: Test performed on Feb 04, 2020 09:25 WBC 3.0 10 3/uL RBC 4.54 10 6/uL HGB 14.1 g/dL HCT 44.3 % MCV 97.6 fL MCH 31.1 pg MCHC 31.8 g/dL RDW 14.2 % Platelet Count 218 10 3/cmm MPV 10.3 fL Neutrophils 2.10 10 3/uL Lymphocytes 0.6 10 3/uL Monocytes 0.2 10 3/uL Eosinophils 0.1 10 3/uL Basophils 0.1 10 3/uL Neutrophil % 69.2 % Lymphocyte % 20.1 % Monocyte % 7.2 % Eosinophil % 1.6 % Basophils % 1.6 % NRBC % 0 % Test performed on Feb 04, 2020 00:00 Manual Diff Cancelled via OM: Cancelled in Connected System Impression: History of isolated fluctuating leukopenia, initially diagnosed in 2018, baseline around 2.5-3k. 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 Trisomy 21 syndrome, Type 2 diabetes mellitus Hypothyroidism History of DVT Dementia Plan: Discussed with patient regarding her labs white blood count 3 hemoglobin 14.1 hematocrit 44.3 platelets 218,000 ANC 2100 Clinically, patient doing well with no new signs symptoms or follow-up labs shows persistent mild/moderate leukopenia, etiology unclear, at this point will consider B12, folic acid, copper level and TSH and abdominal sonogram with special attention to spleen and then she will return to clinic in 1 month with CBC, if above work-up remained inconclusive, then will consider holding her lurasidone, if no improvement will consider bone marrow Signed By: Anish Cuenca M.D. <<Signature on File>>
[2020-02-04 12:48] LABS: Folate Level > 20.0 ng/mL (4.8-37.3)
[2020-02-04 13:53] LABS: Thyroid Stimulating Hormone 0.61 uIU/mL (0.27-4.20); Vitamin B12 498 pg/mL (232-1245)
[2020-02-08 19:38] LABS: Copper Level 77 mcg/dL (70-175)
== END 2020-02-04 08:59 | disposition home or self-care (01) ==
LOC: ONCMED 09:02
PROVIDERS: PCP Family Medicine; Visit Provider Internal Medicine Hematology & Oncology
DX: D72.819 Decreased white blood cell count, unspecified (principal); Q90.9 Down syndrome, unspecified; E11.9 Type 2 diabetes mellitus without complications; E03.9 Hypothyroidism, unspecified; Z86.718 Personal history of other venous thrombosis and embolism; Z79.01 Long term (current) use of anticoagulants; F03.90 Unspecified dementia, unspecified severity, without behavioral disturbance, psychotic disturbance, mood disturbance, and anxiety; Z86.19 Personal history of other infectious and parasitic diseases
CPT/HCPCS: 36415; 82525; 82607; 82746; 84443; 85025; 99214

== ENCOUNTER → 2020-02-22 10:47 | Outpatient (BNVA) | payer MEDICARE, MEDICAID, SELFPAY | PROVIDERS: PCP Family Medicine; Visit Provider Family Medicine | DX: Z79.01 Long term (current) use of anticoagulants (principal); Z51.81 Encounter for therapeutic drug level monitoring; Z86.718 Personal history of other venous thrombosis and embolism | CPT/HCPCS: 85610 ==

== ENCOUNTER 2020-02-28 09:15 | Outpatient (CLI) | payer MEDICARE, MEDICAID, SELFPAY ==
--- NOTE | 2020-02-28 09:26 | US_ITS ---
WS: [id number] Complete ABDOMINAL ULTRASOUND HISTORY: DECREASED WHITE BLOOD CELL COUNT/SPECIAL ATTN:SPLEEN COMPARISON: None available. Liver: 17.5 cm in length. Liver is normal size and echogenicity with no mass or intrahepatic dilatati on. Gallbladder: Prior cholecystectomy. Pancreas: Normal size and echogenicity. CBD: 0.4 cm. Right kidney: 9.3 cm x 5.0 cm x 4.3 cm. No mass, cortical thickening or hydronephrosis. Left kidney: 10.3 cm x 4.6 cm x 4.3 cm. No mass, cortical thickening or hydronephrosis. Spleen: Normal size and echogenicity. Abdominal aorta and IVC are within normal limits. No ascites. US/US abdomen complete* [id number] IMPRESSION: 1. Normal size spleen. 2. Prior cholecystectomy.
== END 2020-02-28 09:16 | disposition home or self-care (01) ==
LOC: RAD 09:19
PROVIDERS: PCP Family Medicine; Visit Provider Internal Medicine Hematology & Oncology
DX: D72.819 Decreased white blood cell count, unspecified (principal); Z90.49 Acquired absence of other specified parts of digestive tract
CPT/HCPCS: 76700

== ENCOUNTER 2020-03-07 08:46 | Outpatient (CLI) | payer MEDICARE, MEDICAID, SELFPAY ==
[2020-03-07 10:04] LABS: Basophils # 0.1 10^3/uL (0.0-0.1); Basophils % 2.1 %; Hematocrit 42.2 % (37.0-47.0); Hemoglobin 13.8 g/dL (11.5-15.3); Lymphocytes # 0.5 10^3/uL (0.8-4.8); Lymphocytes % 18.6 %; Mean Corpuscular HGB Conc 32.7 g/dL (30.0-36.0); Mean Corpuscular Hemoglobin 31.3 pg (28.0-34.0); Mean Corpuscular Volume 95.7 fL (81-99); Mean Platelet Volume 10.4 fL (7.4-10.4); Monocytes # 0.2 10^3/uL (0.2-0.9); Monocytes % 7.6 %; Neutrophils # 2.04 10^3/uL (1.8-7.7); Neutrophils % 70.4 %; Nucleated Red Blood Cells % 0 %; Platelet Count 185 10^3/cmm (130-400); Red Blood Count 4.41 10^6/uL (4.1-5.3); Red Cell Distribution Width 13.4 % (12.1-15.1); White Blood Count 2.9 10^3/uL (4.0-10.0)
--- NOTE | 2020-03-07 13:23 | ONC FU_ITS ---
Dr. Cuenca follow up note Patient: Jillian Cha Unit #: [id number]: 1970 Dicatated By: Anish Cuenca M.D.Date of Visit:Mar 07, 2020 Onc Med Follow-up/Prog Note History of Present Illness: Ms. Jillian Cha, is a 49-year-old mentally challenged woman with a history of fluctuating leukopenia/neutropenia for couple of years, as per caregiver it was about 2 years ago her routine labs showed white blood count of around 2.8, since then it has been fluctuating up and down and the lowest was less than 1000 in October 2019 when she was diagnosed with Covid 19 infection and was admitted to hospital. As per caregiver that patient came to their facility about 5 years ago and she has been on antipsychotic medicine including lurasidone and and caregiver is aware of it is side effect including leukopenia. Patient is a poor historian, most of the history was available from caregiver, she denies any history of recurrent infections, she denies any history of repeated hospitalization until recently with COVID-19. Denies any weight loss denies any night sweats denies any recurrent fever, denies any abdominal fullness, denies any peripheral lymphadenopathy, denies any sore throat, denies any dysuria. Denies any alcohol use or smoking, denies any herbs intakes. Came for follow-up, denies any specific complaints, patient is mentally challenged, so most information was obtained from caregiver, no history of recurrent fever or infection, no history of dysuria or sinus related symptoms, no sore throat. Medications: Cetirizine HCl 1 Tablet (of 10 mg) Oral daily, [facility] Fish Oil 1 Capsule (of 1000 mg) Oral daily, Fenofibrate 1 Tablet (of 160 mg) Oral daily, Ferrous Sulfate 1 Tablet (of 325 (65 fe) mg) Oral daily, Latuda 1 Tablet (of 40 mg) Oral daily, Magnesium 1 Capsule (of 250 mg) Oral daily, Montelukast Sodium 1 Tablet (of 10 mg) Oral daily, Multivitamin 1 Tablet Oral daily, Synthroid 1 Tablet (of 150 mcg) Oral daily, Vitamin C 2 Capsule (of 500 mg) Oral daily, Vitamin D3 1 Capsule (of 5000 IU) Oral daily, Vitamin E 1 Capsule (of 1000 IU) Oral daily, Warfarin Sodium Tablet Oral, Zinc 1 Tablet (of 50 mg) Oral daily Allergies: No Known Allergies. Review of Systems: Review of Systems is not available for this patient. Vital Signs: Performed on Mar 07, 2020 10:54 Height - 47.00 in Weight - 184.8 lbs (LOW) BSA - 1.51 sq.m BMI - 58.82 (HIGH) Temperature - 98.0 F (LOW) Pulse - 65 /min Respiration - 14 /min BP - 91/55 mm(hg) O2 Sat - 97 % Pain - 0 Performance Status: 1 - No physically strenuous activity, but ambulatory and able to carry out light or sedentary work (e.g. office work, light house work). (ECOG) Physical Examination: ENMT - No mouth sores, no thrush, no jaundice, Respiratory - Lungs are clear to auscultation, Cardiovascular - Regular rate and rhythm of heart, Abdomen - Soft, bowel sounds present, Extremities - No visible edema. Lab/Imaging: Test performed on Mar 07, 2020 09:40 WBC 2.9 10^9/L RBC 4.41 10^12/L HGB 13.8 g/dL HCT 42.2 % MCV 95.7 fl MCH 31.3 pg MCHC 32.7 g/dL RDW 13.4 % Platelet Count 185 10^9/L MPV 10.4 fL Neutrophils (Gran) 2.04 10^9/L Lymphocytes 0.5 10^9/L Monocytes 0.2 10^9/L Eosinophils 0.0 10^9/L Basophils 0.1 10^9/L Manual Lymphocytes 18.6 % Manual Monocytes 7.6 % Manual Eosinophils 1.0 % Manual Basophils 2.1 % Test performed on Feb 04, 2020 11:00 Copper 77 mcg/dL Folate, Serum > 20.0 ng/mL TSH 0.61 uIU/mL Vitamin B12 498 pg/mL Test performed on Feb 04, 2020 09:25 Neutrophil % 69.2 % Lymphocyte % 20.1 % Monocyte % 7.2 % Eosinophil % 1.6 % Basophils % 1.6 % NRBC % 0 % Test performed on Feb 04, 2020 00:00 Manual Diff Cancelled via OM: Cancelled in Connected System Impression: History of isolated fluctuating leukopenia, initially diagnosed in 2018, baseline around 2.5-3k. 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 Lab work-up checked on February 04, 2020 shows copper 77, folate more than 20, B12 498, TSH 0.61 and abdominal sonogram done on February 28, 2020 showed normal spleen size. Trisomy 21 syndrome, Type 2 diabetes mellitus Hypothyroidism History of DVT Dementia Plan: Discussed with patient regarding her labs white blood count 2.9 hemoglobin 13.8 hematocrit 42.2 platelets 185,000 ANC 2039 and copper 77, folate more than 20 B12 498, TSH 0.61, abdominal sonogram done on February 28, 2020 shows spleen size is normal Clinically, patient doing well with no new signs symptoms suggestive of infection and her follow-up labs shows persistent isolated leukopenia with a neutrophil count within normal range. Her initial work-up which include B12 level, copper level, folate came back normal and abdominal sonogram showed no evidence of splenomegaly. At this point we will consider whole blood flow cytometry to rule out myeloid proliferative disorder if unremarkable, then review her medication list and evaluate if any of the medication may be causing leukopenia as a side effect. Signed By: Anish Cuenca M.D. <<Signature on File>>
[2020-04-26 10:00] LABS: Miscellaneous Test See Scanned Lab Rpt
== END 2020-03-07 08:47 | disposition home or self-care (01) ==
LOC: ONCMED 08:49
PROVIDERS: PCP Family Medicine; Visit Provider Internal Medicine Hematology & Oncology
DX: D72.819 Decreased white blood cell count, unspecified (principal); Q90.9 Down syndrome, unspecified; E03.9 Hypothyroidism, unspecified; E11.9 Type 2 diabetes mellitus without complications; F03.90 Unspecified dementia, unspecified severity, without behavioral disturbance, psychotic disturbance, mood disturbance, and anxiety; Z86.718 Personal history of other venous thrombosis and embolism
CPT/HCPCS: 36415; 85025; 88184; 88185; 99214

== ENCOUNTER → 2020-04-16 14:35 | Outpatient (BNVA) | payer MEDICARE, MEDICAID, SELFPAY | PROVIDERS: PCP Family Medicine; Referring Provider Family Medicine; Visit Provider Family Medicine | DX: Z51.81 Encounter for therapeutic drug level monitoring (principal); Z79.01 Long term (current) use of anticoagulants | CPT/HCPCS: 85610 ==

== ENCOUNTER 2020-04-20 14:00 | Outpatient (CLI) | payer MEDICARE, MEDICAID, SELFPAY ==
[2020-04-20 15:00] LABS: Basophils # 0.1 10^3/uL (0.0-0.1); Basophils % 1.6 %; Eosinophils # 0.1 10^3/uL (0.0-0.8); Eosinophils % 1.6 %; Hematocrit 40.1 % (37.0-47.0); Hemoglobin 13.3 g/dL (11.5-15.3); Lymphocytes # 0.9 10^3/uL (0.8-4.8); Lymphocytes % 28.8 %; Mean Corpuscular HGB Conc 33.2 g/dL (30.0-36.0); Mean Corpuscular Hemoglobin 30.9 pg (28.0-34.0); Mean Platelet Volume 10.5 fL (7.4-10.4); Monocytes # 0.2 10^3/uL (0.2-0.9); Monocytes % 7.8 %; Neutrophils # 1.82 10^3/uL (1.8-7.7); Neutrophils % 59.5 %; Nucleated Red Blood Cells % 0 %; Platelet Count 187 10^3/cmm (130-400); Red Blood Count 4.31 10^6/uL (4.1-5.3); Red Cell Distribution Width 14.1 % (12.1-15.1); White Blood Count 3.1 10^3/uL (4.0-10.0)
--- NOTE | 2020-04-20 16:07 | ONC FU_ITS ---
Dr. Cuenca follow up note Patient: Jillian Cha Unit #: [id number]: 1970 Dicatated By: Anish Cuenca M.D.Date of Visit:Apr 20, 2020 Onc Med Follow-up/Prog Note History of Present Illness: Ms. Jillian Cha, is a 49-year-old mentally challenged woman with a history of fluctuating leukopenia/neutropenia for couple of years, as per caregiver it was about 2 years ago her routine labs showed white blood count of around 2.8, since then it has been fluctuating up and down and the lowest was less than 1000 in October 2019 when she was diagnosed with Covid 19 infection and was admitted to hospital. As per caregiver that patient came to their facility about 5 years ago and she has been on antipsychotic medicine including lurasidone and and caregiver is aware of it is side effect including leukopenia. Patient is a poor historian, most of the history was available from caregiver, she denies any history of recurrent infections, she denies any history of repeated hospitalization until recently with COVID-19. Denies any weight loss denies any night sweats denies any recurrent fever, denies any abdominal fullness, denies any peripheral lymphadenopathy, denies any sore throat, denies any dysuria. Flow cytometry done on March 07, 2020 showed no aberrant myeloid or lymphoid population detected Denies any alcohol use or smoking, denies any herbs intakes. Came for follow-up, denies any specific complaints, no fever chills, no nausea or vomiting, no diarrhea constipation, no recurrent infections, no night sweats, no weight loss Medications: Cetirizine HCl 1 Tablet (of 10 mg) Oral daily, [employer] Fish Oil 1 Capsule (of 1000 mg) Oral daily, Fenofibrate 1 Tablet (of 160 mg) Oral daily, Ferrous Sulfate 1 Tablet (of 325 (65 fe) mg) Oral daily, Latuda 1 Tablet (of 40 mg) Oral daily, Magnesium 1 Capsule (of 250 mg) Oral daily, Montelukast Sodium 1 Tablet (of 10 mg) Oral daily, Multivitamin 1 Tablet Oral daily, Synthroid 1 Tablet (of 150 mcg) Oral daily, Vitamin C 2 Capsule (of 500 mg) Oral daily, Vitamin D3 1 Capsule (of 5000 IU) Oral daily, Vitamin E 1 Capsule (of 1000 IU) Oral daily, Warfarin Sodium Tablet Oral, Zinc 1 Tablet (of 50 mg) Oral daily Allergies: No Known Allergies. Review of Systems: Review of Systems is not available for this patient. Vital Signs: Performed on Apr 20, 2020 15:16 Height - 47.00 in Weight - 190.0 lbs (HIGH) BSA - 1.53 sq.m BMI - 60.47 (HIGH) Temperature - 97.4 F (LOW) Pulse - 64 /min Respiration - 19 /min BP - 108/71 mm(hg) O2 Sat - 99 % Pain - 0 Performance Status: 1 - No physically strenuous activity, but ambulatory and able to carry out light or sedentary work (e.g. office work, light house work). (ECOG) Physical Examination: ENMT - No mouth sores, no thrush, no jaundice, Respiratory - Lungs are clear to auscultation, Cardiovascular - Regular rate and rhythm of heart, Abdomen - Soft, bowel sounds present, Extremities - No visible edema. Lab/Imaging: Test performed on Mar 07, 2020 09:40 WBC 2.9 10 3/uL RBC 4.41 10 6/uL HGB 13.8 g/dL HCT 42.2 % MCV 95.7 fL MCH 31.3 pg MCHC 32.7 g/dL RDW 13.4 % Platelet Count 185 10 3/cmm MPV 10.4 fL Neutrophils 2.04 10 3/uL Lymphocytes 0.5 10 3/uL Monocytes 0.2 10 3/uL Eosinophils 0.0 10 3/uL Basophils 0.1 10 3/uL Neutrophil % 70.4 % Lymphocyte % 18.6 % Manual Lymphocytes 18.6 % Manual Monocytes 7.6 % Monocyte % 7.6 % Eosinophil % 1.0 % Manual Eosinophils 1.0 % Basophils % 2.1 % Manual Basophils 2.1 % NRBC % 0 % Test performed on Feb 04, 2020 11:00 Copper 77 mcg/dL Folate, Serum > 20.0 ng/mL TSH 0.61 uIU/mL Vitamin B12 498 pg/mL Test performed on Feb 04, 2020 00:00 Manual Diff Cancelled via OM: Cancelled in Connected System Impression: History of isolated fluctuating leukopenia, initially diagnosed in 2018, baseline around 2.5-3k. 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 Lab work-up checked on February 04, 2020 shows copper 77, folate more than 20, B12 498, TSH 0.61 and abdominal sonogram done on February 28, 2020 showed normal spleen size. Flow cytometry done on March 07, 2020 showed no aberrant myeloid or lymphoid population Trisomy 21 syndrome, Type 2 diabetes mellitus Hypothyroidism History of DVT Dementia Plan: Discussed with patient and caregiver regarding her labs white blood count 3.1 hemoglobin 13.3 hematocrit 40.1 platelets 187,000 and peripheral blood flow cytometry showed no evident myeloid or lymphoid population Clinically, patient doing well with no new signs symptom suggestive of infection or follow-up CBC shows persistent mild leukopenia, whole blood flow cytometry was done to rule out myeloproliferative disorder and it came back unremarkable. At this point we will suggest holding lurasidone for a month and then repeat CBC if there is no improvement, then will consider bone marrow evaluation. Caregiver said she will talk to patient's PMD and then call our office regarding the day lurasidone will discontinue and we will see her back month after that with CBC Signed By: Anish Cuenca M.D. <<Signature on File>>
== END 2020-04-20 14:01 | disposition home or self-care (01) ==
PROVIDERS: PCP Family Medicine; Visit Provider Internal Medicine Hematology & Oncology
DX: D72.819 Decreased white blood cell count, unspecified (principal); D51.9 Vitamin B12 deficiency anemia, unspecified; E61.0 Copper deficiency; Q90.9 Down syndrome, unspecified; E11.9 Type 2 diabetes mellitus without complications; E03.9 Hypothyroidism, unspecified; F03.90 Unspecified dementia, unspecified severity, without behavioral disturbance, psychotic disturbance, mood disturbance, and anxiety; Z86.718 Personal history of other venous thrombosis and embolism; Z79.01 Long term (current) use of anticoagulants; Z79.899 Other long term (current) drug therapy
CPT/HCPCS: 36415; 85025; 99214

== ENCOUNTER → 2020-04-25 09:14 | Outpatient (BNVA) | payer MEDICARE, MEDICAID, SELFPAY | PROVIDERS: PCP Family Medicine; Visit Provider Family Medicine | DX: E11.9 Type 2 diabetes mellitus without complications (principal); Z79.01 Long term (current) use of anticoagulants; E03.9 Hypothyroidism, unspecified; E78.2 Mixed hyperlipidemia; Z86.718 Personal history of other venous thrombosis and embolism; Q90.9 Down syndrome, unspecified; D72.819 Decreased white blood cell count, unspecified; F06.0 Psychotic disorder with hallucinations due to known physiological condition | CPT/HCPCS: 80053; 80061; 83036; 84443; 85610 ==

== ENCOUNTER → 2020-05-22 14:30 | Outpatient (BNVA) | payer MEDICARE, MEDICAID, SELFPAY | PROVIDERS: PCP Family Medicine; Visit Provider Nurse Practitioner Family | DX: Z79.01 Long term (current) use of anticoagulants (principal); Z51.81 Encounter for therapeutic drug level monitoring; Z86.718 Personal history of other venous thrombosis and embolism | CPT/HCPCS: 85610 ==

== ENCOUNTER → 2020-06-05 17:25 | Outpatient (BNVA) | payer MEDICARE, MEDICAID, SELFPAY | PROVIDERS: PCP Family Medicine; Visit Provider Internal Medicine Hematology & Oncology | DX: D72.819 Decreased white blood cell count, unspecified (principal); H10.9 Unspecified conjunctivitis | CPT/HCPCS: 85025 ==

== ENCOUNTER 2020-06-07 07:50 | Outpatient (CLI) | payer MEDICARE, MEDICAID, SELFPAY ==
--- NOTE | 2020-06-08 10:21 | ONC FU_ITS ---
Dr. Cuenca follow up note Patient: Jillian Cha Unit #: [id number]: 1970 Dicatated By: Anish Cuenca M.D.Date of Visit:Jun 07, 2020 Onc Med Follow-up/Prog Note History of Present Illness: Ms. Jillian Cha, is a 49-year-old mentally challenged woman with a history of fluctuating leukopenia/neutropenia for couple of years, as per caregiver it was about 2 years ago her routine labs showed white blood count of around 2.8, since then it has been fluctuating up and down and the lowest was less than 1000 in October 2019 when she was diagnosed with Covid 19 infection and was admitted to hospital. As per caregiver that patient came to their facility about 5 years ago and she has been on antipsychotic medicine including lurasidone and and caregiver is aware of it is side effect including leukopenia. Patient is a poor historian, most of the history was available from caregiver, she denies any history of recurrent infections, she denies any history of repeated hospitalization until recently with COVID-19. Denies any weight loss denies any night sweats denies any recurrent fever, denies any abdominal fullness, denies any peripheral lymphadenopathy, denies any sore throat, denies any dysuria. Flow cytometry done on March 07, 2020 showed no aberrant myeloid or lymphoid population detected Denies any alcohol use or smoking, denies any herbs intakes. Came for follow-up, denies any specific complaints, no fever chills, no nausea or vomiting, no diarrhea constipation, no sore throat no dysuria, no sinus problem, as per patient and caregiver, patient is off lurasidone since her last visit and her PMD is thinking about discontinuing it as patient has no new symptoms due to discontinuation of lurasidone Medications: Cetirizine HCl 1 Tablet (of 10 mg) Oral daily, [facility] Fish Oil 1 Capsule (of 1000 mg) Oral daily, Fenofibrate 1 Tablet (of 160 mg) Oral daily, Ferrous Sulfate 1 Tablet (of 325 (65 fe) mg) Oral daily, Latuda 1 Tablet (of 40 mg) Oral daily, Magnesium 1 Capsule (of 250 mg) Oral daily, Montelukast Sodium 1 Tablet (of 10 mg) Oral daily, Multivitamin 1 Tablet Oral daily, Synthroid 1 Tablet (of 150 mcg) Oral daily, Vitamin C 2 Capsule (of 500 mg) Oral daily, Vitamin D3 1 Capsule (of 5000 IU) Oral daily, Vitamin E 1 Capsule (of 1000 IU) Oral daily, Warfarin Sodium Tablet Oral, Zinc 1 Tablet (of 50 mg) Oral daily Allergies: No Known Allergies. Review of Systems: Review of Systems is not available for this patient. Vital Signs: Performed on Jun 07, 2020 09:39 Height - 47.00 in Weight - 186.6 lbs (LOW) BSA - 1.52 sq.m BMI - 59.39 (HIGH) Temperature - 97 F (LOW) Pulse - 81 /min Respiration - 18 /min BP - 91/44 mm(hg) O2 Sat - 99 % Pain - 0 Fatigue - 0 Performance Status: 1 - No physically strenuous activity, but ambulatory and able to carry out light or sedentary work (e.g. office work, light house work). (ECOG) Physical Examination: ENMT - No mouth sores, no thrush, no jaundice, Respiratory - Lungs are clear to auscultation , Cardiovascular - Regular rate and rhythm of heart, Abdomen - Soft, bowel sounds present, Extremities - No visible edema, no peripheral lymphadenopathy. Lab/Imaging: Test performed on Jun 05, 2020 17:36 WBC 3.7 10^9/L RBC 4.50 10^12/L HGB 14.1 g/dL HCT 42.4 % MCV 94.2 fl MCH 31.3 pg MCHC 33.3 g/dL RDW 14.2 % Platelet Count 222 10^9/L MPV 10.8 fL Neutrophils (Gran) 2.21 10^9/L Lymphocytes 1.0 10^9/L Monocytes 0.3 10^9/L Eosinophils 0.1 10^9/L Basophils 0.1 10^9/L Manual Lymphocytes 27.2 % Manual Monocytes 7.8 % Manual Eosinophils 2.7 % Manual Basophils 2.4 % Test performed on Mar 07, 2020 09:40 Neutrophil % 70.4 % Lymphocyte % 18.6 % Monocyte % 7.6 % Eosinophil % 1.0 % Basophils % 2.1 % NRBC % 0 % Test performed on Feb 04, 2020 11:00 Copper 77 mcg/dL Folate, Serum > 20.0 ng/mL TSH 0.61 uIU/mL Vitamin B12 498 pg/mL Test performed on Feb 04, 2020 00:00 Manual Diff Cancelled via OM: Cancelled in Connected System Impression: History of isolated fluctuating leukopenia, initially diagnosed in 2018, baseline around 2.5-3k. 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 Lab work-up checked on February 04, 2020 shows copper 77, folate more than 20, B12 498, TSH 0.61 and abdominal sonogram done on February 28, 2020 showed normal spleen size. Flow cytometry done on March 07, 2020 showed no aberrant myeloid or lymphoid population Trisomy 21 syndrome, Type 2 diabetes mellitus Hypothyroidism History of DVT Dementia Plan: Discussed with patient and caregiver regarding her labs white blood count 3.7 compared to 3.1 on 04/20/2020, hemoglobin 14.1 g hematocrit 42.4 platelets 222,000 neutrophil count 2210 compared to 1820 previously Clinically, patient doing well with no signs symptom suggestive of acute or chronic infection, her follow-up CBC shows improvement in her mild leukopenia as well as neutropenia with normal hemoglobin as well as platelet count since patient is off lurasidone, which may be the reason for leukopenia/neutropenia. As patient has no new symptoms due to discontinuation of lurasidone, her PMD is considering discontinuing this medicine. In the meantime, as her follow-up labs shows improvement in her leukopenia/neutropenia, patient was advised to continue to hold lurasidone and then she will return to clinic in 1 month with CBC to ensure resolution of mild leukopenia/neutropenia. Signed By: Anish Cuenca M.D. <<Signature on File>>
== END 2020-06-07 07:51 | disposition home or self-care (01) ==
LOC: ONCMED 07:54
PROVIDERS: PCP Family Medicine; Visit Provider Internal Medicine Hematology & Oncology
DX: D72.819 Decreased white blood cell count, unspecified (principal); Q90.9 Down syndrome, unspecified; E11.9 Type 2 diabetes mellitus without complications; E03.9 Hypothyroidism, unspecified; Z86.718 Personal history of other venous thrombosis and embolism; Z79.899 Other long term (current) drug therapy
CPT/HCPCS: G0463

== ENCOUNTER 2020-07-18 13:54 | Outpatient (CLI) | payer MEDICARE, MEDICAID, SELFPAY ==
[2020-07-18 14:42] LABS: Basophils # 0.1 10^3/uL (0.0-0.1); Basophils % 1.9 %; Eosinophils # 0.1 10^3/uL (0.0-0.8); Eosinophils % 1.9 %; Hematocrit 40.6 % (37.0-47.0); Hemoglobin 13.6 g/dL (11.5-15.3); Lymphocytes # 0.9 10^3/uL (0.8-4.8); Lymphocytes % 27.5 %; Mean Corpuscular HGB Conc 33.5 g/dL (30.0-36.0); Mean Corpuscular Hemoglobin 32.2 pg (28.0-34.0); Mean Platelet Volume 10.3 fL (7.4-10.4); Monocytes # 0.2 10^3/uL (0.2-0.9); Monocytes % 5.6 %; Neutrophils # 2.01 10^3/uL (1.8-7.7); Neutrophils % 62.8 %; Nucleated Red Blood Cells % 0 %; Platelet Count 192 10^3/cmm (130-400); Red Blood Count 4.23 10^6/uL (4.1-5.3); White Blood Count 3.2 10^3/uL (4.0-10.0)
== END 2020-07-18 13:55 | disposition home or self-care (01) ==
PROVIDERS: PCP Family Medicine; Visit Provider Internal Medicine Hematology & Oncology
DX: D72.819 Decreased white blood cell count, unspecified (principal)
CPT/HCPCS: 36415; 85025

== ENCOUNTER 2020-07-19 08:13 | Outpatient (CLI) | payer MEDICARE, MEDICAID, SELFPAY ==
--- NOTE | 2020-07-19 16:36 | ONC FU_ITS ---
Dr. Cuenca follow up note Patient: Jillian Cha Unit #: [id number]: 1970 Dicatated By: Anish Cuenca M.D.Date of Visit:July 19, 2020 Onc Med Follow-up/Prog Note History of Present Illness: Ms. Jillian Cha, is a 49-year-old mentally challenged woman with a history of fluctuating leukopenia/neutropenia for couple of years, as per caregiver it was about 2 years ago her routine labs showed white blood count of around 2.8, since then it has been fluctuating up and down and the lowest was less than 1000 in October 2019 when she was diagnosed with Covid 19 infection and was admitted to hospital. As per caregiver that patient came to their facility about 5 years ago and she has been on antipsychotic medicine including lurasidone and and caregiver is aware of it is side effect including leukopenia. Patient is a poor historian, most of the history was available from caregiver, she denies any history of recurrent infections, she denies any history of repeated hospitalization until recently with COVID-19. Denies any weight loss denies any night sweats denies any recurrent fever, denies any abdominal fullness, denies any peripheral lymphadenopathy, denies any sore throat, denies any dysuria. Flow cytometry done on March 07, 2020 showed no aberrant myeloid or lymphoid population detected Denies any alcohol use or smoking, denies any herbs intakes. Whole blood flow cytometry done on March 07, 2020 showed no aberrant myeloid or lymphoid population Came for follow-up, denies any specific complaints, no fever chills, no nausea or vomiting, no diarrhea constipation, no dysuria or hematuria, as per caregiver patient is more intense and aggressive since her lurasidone is on hold, patient has follow-up appointment with her mental health care physician, as per caregiver that may consider new medication instead of lurasidone Medications: Cetirizine HCl 1 Tablet (of 10 mg) Oral daily, [facility] Fish Oil 1 Capsule (of 1000 mg) Oral daily, Fenofibrate 1 Tablet (of 160 mg) Oral daily, Ferrous Sulfate 1 Tablet (of 325 (65 fe) mg) Oral daily, Latuda 1 Tablet (of 40 mg) Oral daily, Magnesium 1 Capsule (of 250 mg) Oral daily, Montelukast Sodium 1 Tablet (of 10 mg) Oral daily, Multivitamin 1 Tablet Oral daily, Synthroid 1 Tablet (of 150 mcg) Oral daily, Vitamin C 2 Capsule (of 500 mg) Oral daily, Vitamin D3 1 Capsule (of 5000 IU) Oral daily, Vitamin E 1 Capsule (of 1000 IU) Oral daily, Warfarin Sodium Tablet Oral, Zinc 1 Tablet (of 50 mg) Oral daily Allergies: No Known Allergies. Review of Systems: Review of Systems is not available for this patient. Vital Signs: Performed on July 19, 2020 16:02 Height - 47.00 in Weight - 186.4 lbs (LOW) BSA - 1.52 sq.m BMI - 59.33 (HIGH) Temperature - 97.0 F (LOW) Pulse - 62 /min Respiration - 18 /min BP - 98/58 mm(hg) O2 Sat - 97 % Pain - 0 Fatigue - 0 Performance Status: 0 - Fully active, able to carry on all predisease activities without restrictions. (ECOG) Physical Examination: ENMT - No mouth sores, no thrush, no jaundice, Respiratory - Lungs are clear to auscultation , Cardiovascular - Regular rate and rhythm of heart, Abdomen - Soft, bowel sounds present, Extremities - No visible edema or rash. Lab/Imaging: Test performed on Jun 05, 2020 17:36 WBC 3.7 10^9/L RBC 4.50 10^12/L HGB 14.1 g/dL HCT 42.4 % MCV 94.2 fl MCH 31.3 pg MCHC 33.3 g/dL RDW 14.2 % Platelet Count 222 10^9/L MPV 10.8 fL Neutrophils (Gran) 2.21 10^9/L Lymphocytes 1.0 10^9/L Monocytes 0.3 10^9/L Eosinophils 0.1 10^9/L Basophils 0.1 10^9/L Manual Lymphocytes 27.2 % Manual Monocytes 7.8 % Manual Eosinophils 2.7 % Manual Basophils 2.4 % Test performed on Mar 07, 2020 09:40 Neutrophil % 70.4 % Lymphocyte % 18.6 % Monocyte % 7.6 % Eosinophil % 1.0 % Basophils % 2.1 % NRBC % 0 % Test performed on Feb 04, 2020 11:00 Copper 77 mcg/dL Folate, Serum > 20.0 ng/mL TSH 0.61 uIU/mL Vitamin B12 498 pg/mL Test performed on Feb 04, 2020 00:00 Manual Diff Cancelled via OM: Cancelled in Connected System Impression: History of isolated fluctuating leukopenia, initially diagnosed in 2018, baseline around 2.5-3k. 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 Lab work-up checked on February 04, 2020 shows copper 77, folate more than 20, B12 498, TSH 0.61 and abdominal sonogram done on February 28, 2020 showed normal spleen size. Flow cytometry done on March 07, 2020 showed no aberrant myeloid or lymphoid population Trisomy 21 syndrome, Type 2 diabetes mellitus Hypothyroidism History of DVT Dementia Plan: Discussed with patient and caregiver her white blood count 3.2 hemoglobin 13.6 hematocrit 40.6 platelets 192,000 with a normal differential Clinically, there is no signs symptom suggestive of acute or chronic infection her follow-up CBC shows persistent fluctuating isolated mild leukopenia, today's labs shows white blood count 3200 compared to 3 700 previously compared to 3100 prior to that, at that time her lurasidone was put on hold and her follow-up lab on June 05, 2020 showed improvement in her mild leukopenia, resumed lurasidone induced leukopenia but while her lurasidone is still on hold, her white blood count dropped again to 3200 compared to 3700 previously so it is unlikely her leukopenia is due to lurasidone, caregiver was informed that if needed patient can be started on lurasidone. She will return to clinic in 1 month with CBC if there is a progressive leukopenia, may consider bone marrow to rule out bone marrow pathology. Signed By: Anish Cuenca M.D. <<Signature on File>>
== END 2020-07-19 08:14 | disposition home or self-care (01) ==
LOC: ONCMED 08:16
PROVIDERS: PCP Family Medicine; Visit Provider Internal Medicine Hematology & Oncology
DX: D72.819 Decreased white blood cell count, unspecified (principal); Q90.9 Down syndrome, unspecified; E11.9 Type 2 diabetes mellitus without complications; E03.9 Hypothyroidism, unspecified; F03.90 Unspecified dementia, unspecified severity, without behavioral disturbance, psychotic disturbance, mood disturbance, and anxiety; Z86.718 Personal history of other venous thrombosis and embolism; Z79.899 Other long term (current) drug therapy
CPT/HCPCS: 99214

== ENCOUNTER → 2020-08-06 10:35 | Outpatient (BNVA) | payer MEDICARE, MEDICAID, SELFPAY | PROVIDERS: PCP Family Medicine; Visit Provider Family Medicine | DX: Z86.718 Personal history of other venous thrombosis and embolism (principal); Z79.01 Long term (current) use of anticoagulants | CPT/HCPCS: 85610 ==

== ENCOUNTER 2020-09-12 14:18 | Outpatient (CLI) | payer MEDICARE, MEDICAID, SELFPAY ==
[2020-09-12 14:59] LABS: Basophils # 0.1 10^3/uL (0.0-0.1); Basophils % 2.2 %; Eosinophils # 0.1 10^3/uL (0.0-0.8); Hematocrit 42.3 % (37.0-47.0); Hemoglobin 13.9 g/dL (11.5-15.3); Lymphocytes # 0.9 10^3/uL (0.8-4.8); Lymphocytes % 23.2 %; Mean Corpuscular HGB Conc 32.9 g/dL (30.0-36.0); Mean Corpuscular Hemoglobin 31.5 pg (28.0-34.0); Mean Corpuscular Volume 95.9 fL (81-99); Mean Platelet Volume 10.4 fL (7.4-10.4); Monocytes # 0.3 10^3/uL (0.2-0.9); Monocytes % 6.4 %; Neutrophils # 2.63 10^3/uL (1.8-7.7); Nucleated Red Blood Cells % 0 %; Platelet Count 182 10^3/cmm (130-400); Red Blood Count 4.41 10^6/uL (4.1-5.3); Red Cell Distribution Width 14.2 % (12.1-15.1); White Blood Count 4.1 10^3/uL (4.0-10.0)
[2020-09-12 15:01] LABS: INR 1.96 (0.8-1.2)
--- NOTE | 2020-09-12 16:21 | ONC FU_ITS ---
Dr. Cuenca follow up note Patient: Jillian Cha Unit #: [id number]: [id number] Dicatated By: Anish Cuenca M.D.Date of Visit:Sep 12, 2020 Onc Med Follow-up/Prog Note History of Present Illness: Ms. Jillian Cha, is a 49-year-old mentally challenged woman with a history of fluctuating leukopenia/neutropenia for couple of years, as per caregiver it was about 2 years ago her routine labs showed white blood count of around 2.8, since then it has been fluctuating up and down and the lowest was less than 1000 in October 2019 when she was diagnosed with Covid 19 infection and was admitted to hospital. As per caregiver that patient came to their facility about 5 years ago and she has been on antipsychotic medicine including lurasidone and and caregiver is aware of it is side effect including leukopenia. Patient is a poor historian, most of the history was available from caregiver, she denies any history of recurrent infections, she denies any history of repeated hospitalization until recently with COVID-19. Denies any weight loss denies any night sweats denies any recurrent fever, denies any abdominal fullness, denies any peripheral lymphadenopathy, denies any sore throat, denies any dysuria. Flow cytometry done on March 07, 2020 showed no aberrant myeloid or lymphoid population detected Denies any alcohol use or smoking, denies any herbs intakes. Whole blood flow cytometry done on March 07, 2020 showed no aberrant myeloid or lymphoid population Came for follow-up, denies any specific complaints, no fever no chills no nausea or vomiting no diarrhea constipation, no recurrent fever, no weight loss, patient did start lurasidone and tolerating well Medications: Cetirizine HCl 1 Tablet (of 10 mg) Oral daily, [facility] Fish Oil 1 Capsule (of 1000 mg) Oral daily, Fenofibrate 1 Tablet (of 160 mg) Oral daily, Ferrous Sulfate 1 Tablet (of 325 (65 fe) mg) Oral daily, Latuda 1 Tablet (of 40 mg) Oral daily, Lurasidone HCl (40 mg) Tablet Oral daily, Magnesium 1 Capsule (of 250 mg) Oral daily, Montelukast Sodium 1 Tablet (of 10 mg) Oral daily, Multivitamin 1 Tablet Oral daily, Synthroid 1 Tablet (of 150 mcg) Oral daily, Vitamin C 2 Capsule (of 500 mg) Oral daily, Vitamin D3 1 Capsule (of 5000 IU) Oral daily, Vitamin E 1 Capsule (of 1000 IU) Oral daily, Warfarin Sodium Tablet Oral, Zinc 1 Tablet (of 50 mg) Oral daily Allergies: No Known Allergies. Review of Systems: Review of Systems is not available for this patient. Vital Signs: Performed on Sep 12, 2020 15:51 Height - 47.00 in Weight - 189.8 lbs (HIGH) BSA - 1.53 sq.m BMI - 60.41 (HIGH) Temperature - 96.1 F (LOW) Pulse - 52 /min (LOW) Respiration - 18 /min BP - 101/68 mm(hg) O2 Sat - 99 % Pain - 0 Fatigue - 0 Performance Status: 0 - Fully active, able to carry on all predisease activities without restrictions. (ECOG) Physical Examination: ENMT - No mouth sores, no thrush, no jaundice no cervical lymphadenopathy, Respiratory - Lungs are clear to auscultation, Cardiovascular - Regular rate and rhythm of heart, Abdomen - Soft, bowel sounds present, Extremities - No visible edema. Lab/Imaging: Test performed on Jun 05, 2020 17:36 WBC 3.7 10^9/L RBC 4.50 10^12/L HGB 14.1 g/dL HCT 42.4 % MCV 94.2 fl MCH 31.3 pg MCHC 33.3 g/dL RDW 14.2 % Platelet Count 222 10^9/L MPV 10.8 fL Neutrophils (Gran) 2.21 10^9/L Lymphocytes 1.0 10^9/L Monocytes 0.3 10^9/L Eosinophils 0.1 10^9/L Basophils 0.1 10^9/L Manual Lymphocytes 27.2 % Manual Monocytes 7.8 % Manual Eosinophils 2.7 % Manual Basophils 2.4 % Impression: History of isolated fluctuating leukopenia, initially diagnosed in 2018, baseline around 2.5-3k. 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 Lab work-up checked on February 04, 2020 shows copper 77, folate more than 20, B12 498, TSH 0.61 and abdominal sonogram done on February 28, 2020 showed normal spleen size. Flow cytometry done on March 07, 2020 showed no aberrant myeloid or lymphoid population Trisomy 21 syndrome, Type 2 diabetes mellitus Hypothyroidism History of DVT Dementia Plan: Discussed with patient and caregiver regarding her labs white blood count 4.1 hemoglobin 13.9 hematocrit 42.3 platelets 182,000 ANC 2630 Clinically, patient doing well with no new signs symptoms suggestive of infection her follow-up CBC shows resolution of isolated leukopenia/neutropenia Patient is back on her preevaluation medication, like lurasidone, tolerating well, her lab work-up shows resolution of isolated leukopenia/neutropenia on its own, will continue to monitor return to clinic in 2 months with CBC if no more recurrent leukopenia or neutropenia, then we will see her on as-needed basis Signed By: Anish Cuenca M.D. <<Signature on File>>
== END 2020-09-12 14:19 | disposition home or self-care (01) ==
PROVIDERS: PCP Family Medicine; Visit Provider Internal Medicine Hematology & Oncology
DX: D70.9 Neutropenia, unspecified (principal); Q90.9 Down syndrome, unspecified; E03.9 Hypothyroidism, unspecified; I82.409 Acute embolism and thrombosis of unspecified deep veins of unspecified lower extremity; F03.90 Unspecified dementia, unspecified severity, without behavioral disturbance, psychotic disturbance, mood disturbance, and anxiety; Z79.899 Other long term (current) drug therapy
CPT/HCPCS: 36415; 85025; 85610; 99214

== ENCOUNTER 2020-11-15 15:02 | Outpatient (CLI) | payer MEDICARE, MEDICAID, SELFPAY ==
[2020-11-15 15:52] LABS: Basophils # 0.1 10^3/uL (0.0-0.1); Basophils % 2.4 %; Eosinophils # 0.1 10^3/uL (0.0-0.8); Eosinophils % 2.4 %; Hematocrit 42.2 % (37.0-47.0); Hemoglobin 14.1 g/dL (11.5-15.3); Lymphocytes # 0.9 10^3/uL (0.8-4.8); Lymphocytes % 31.4 %; Mean Corpuscular HGB Conc 33.4 g/dL (30.0-36.0); Mean Corpuscular Hemoglobin 32.5 pg (28.0-34.0); Mean Corpuscular Volume 97.2 fl (81-99); Mean Platelet Volume 10.3 fL (7.4-10.4); Monocytes # 0.3 10^3/uL (0.2-0.9); Monocytes % 8.9 %; Neutrophils # 1.59 10^3/uL (1.8-7.7); Neutrophils % 54.2 %; Nucleated Red Blood Cells % 0 %; Platelet Count 202 10^3/cmm (130-400); Red Blood Count 4.34 10^6/uL (4.1-5.3); Red Cell Distribution Width 13.8 % (12.1-15.1); White Blood Count 2.9 10^3/uL (4.0-10.0)
[2020-11-15 16:03] LABS: INR 2.02 (0.8-1.2)
--- NOTE | 2020-11-15 17:06 | ONC FU_ITS ---
Dr. Cuenca follow up note Patient: Jillian Cha Unit #: [id number]: 1970 Dicatated By: Anish Cuenca M.D.Date of Visit:Nov 15, 2020 Onc Med Follow-up/Prog Note History of Present Illness: Ms. Jillian Cha, is a 50-year-old mentally challenged woman with a history of fluctuating leukopenia/neutropenia for couple of years, as per caregiver it was about 2 years ago her routine labs showed white blood count of around 2.8, since then it has been fluctuating up and down and the lowest was less than 1000 in October 2019 when she was diagnosed with Covid 19 infection and was admitted to hospital. As per caregiver that patient came to their facility about 5 years ago and she has been on antipsychotic medicine including lurasidone and and caregiver is aware of it is side effect including leukopenia. Patient is a poor historian, most of the history was available from caregiver, she denies any history of recurrent infections, she denies any history of repeated hospitalization until recently with COVID-19. Denies any weight loss denies any night sweats denies any recurrent fever, denies any abdominal fullness, denies any peripheral lymphadenopathy, denies any sore throat, denies any dysuria. Flow cytometry done on March 07, 2020 showed no aberrant myeloid or lymphoid population detected Denies any alcohol use or smoking, denies any herbs intakes. Whole blood flow cytometry done on March 07, 2020 showed no aberrant myeloid or lymphoid population Came for follow-up, denies any specific complaints, no fever chills, no nausea or vomiting, no diarrhea or constipation, no jaundice, no night sweats, no abdominal fullness, patient restarted lurasidone in July 2020, initially started low-dose and then titrate up to recommended dose. Medications: Cetirizine HCl 1 Tablet (of 10 mg) Oral daily, [facility] Fish Oil 1 Capsule (of 1000 mg) Oral daily, Fenofibrate 1 Tablet (of 160 mg) Oral daily, Ferrous Sulfate 1 Tablet (of 325 (65 fe) mg) Oral daily, Latuda 1 Tablet (of 40 mg) Oral daily, Lurasidone HCl (40 mg) Tablet Oral daily, Magnesium 1 Capsule (of 250 mg) Oral daily, Montelukast Sodium 1 Tablet (of 10 mg) Oral daily, Multivitamin 1 Tablet Oral daily, Synthroid 1 Tablet (of 150 mcg) Oral daily, Vitamin C 2 Capsule (of 500 mg) Oral daily, Vitamin D3 1 Capsule (of 5000 IU) Oral daily, Vitamin E 1 Capsule (of 1000 IU) Oral daily, Warfarin Sodium Tablet Oral, Zinc 1 Tablet (of 50 mg) Oral daily Allergies: No Known Allergies. Review of Systems: Review of Systems is not available for this patient. Vital Signs: Performed on Nov 15, 2020 16:10 Height - 47.00 in Weight - 193.8 lbs (HIGH) BSA - 1.54 sq.m BMI - 61.68 (HIGH) Temperature - 97.0 F (LOW) Pulse - 58 /min (LOW) Respiration - 18 /min BP - 104/66 mm(hg) O2 Sat - 98 % Pain - 0 Performance Status: 0 - Fully active, able to carry on all predisease activities without restrictions. (ECOG) Physical Examination: ENMT - No mouth sores, no thrush, no jaundice, no cervical lymphadenopathy, Respiratory - Lungs are clear to auscultation, Cardiovascular - Regular rate and rhythm of heart, Abdomen - Soft, bowel sounds present, Extremities - No visible edema. Lab/Imaging: Test performed on Jun 05, 2020 17:36 WBC 3.7 10^9/L RBC 4.50 10^12/L HGB 14.1 g/dL HCT 42.4 % MCV 94.2 fl MCH 31.3 pg MCHC 33.3 g/dL RDW 14.2 % Platelet Count 222 10^9/L MPV 10.8 fL Neutrophils (Gran) 2.21 10^9/L Lymphocytes 1.0 10^9/L Monocytes 0.3 10^9/L Eosinophils 0.1 10^9/L Basophils 0.1 10^9/L Manual Lymphocytes 27.2 % Manual Monocytes 7.8 % Manual Eosinophils 2.7 % Manual Basophils 2.4 % Impression: History of isolated fluctuating leukopenia, initially diagnosed in 2018, baseline around 2.5-3k. 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 Lab work-up checked on February 04, 2020 shows copper 77, folate more than 20, B12 498, TSH 0.61 and abdominal sonogram done on February 28, 2020 showed normal spleen size. Flow cytometry done on March 07, 2020 showed no aberrant myeloid or lymphoid population Trisomy 21 syndrome, Type 2 diabetes mellitus Hypothyroidism History of DVT Dementia Plan: Discussed with patient and caregiver her white blood count is 2900 compared to 4100 on September 12, 2020 hemoglobin 14.1 hematocrit 42.2 platelets 202,000 ANC 1590 Clinically, patient is doing well with no new signs symptoms but her follow-up labs shows recurrent leukopenia/neutropenia compared to normal counts on September 20, 2020 Etiology of fluctuating leukopenia is most likely due to drug-induced probably due to lurasidone but considering her trisomy 21 syndrome disorder there is a concern about underlying leukemia, at this point we will consider bone marrow evaluation. And patient return to clinic 10 days after the bone marrow evaluation for further discussion Signed By: Anish Cuenca M.D. <<Signature on File>>
== END 2020-11-15 15:03 | disposition home or self-care (01) ==
PROVIDERS: PCP Family Medicine; Visit Provider Internal Medicine Hematology & Oncology
DX: D72.819 Decreased white blood cell count, unspecified (principal); Q90.9 Down syndrome, unspecified; E11.9 Type 2 diabetes mellitus without complications; E03.9 Hypothyroidism, unspecified; F03.90 Unspecified dementia, unspecified severity, without behavioral disturbance, psychotic disturbance, mood disturbance, and anxiety; Z86.718 Personal history of other venous thrombosis and embolism; Z79.899 Other long term (current) drug therapy
CPT/HCPCS: 36415; 85025; 85610; 99214

== ENCOUNTER → 2020-12-28 16:22 | Outpatient (BNVA) | payer MEDICARE, MEDICAID, SELFPAY | PROVIDERS: PCP Family Medicine; Visit Provider Internal Medicine Hematology & Oncology | DX: Z01.812 Encounter for preprocedural laboratory examination (principal); Z20.822 Contact with and (suspected) exposure to COVID-19 | CPT/HCPCS: 87635 ==

== ENCOUNTER 2021-01-02 09:32 | Day surgery (SDC) | payer MEDICARE, MEDICAID, SELFPAY ==
[2020-12-29 14:37] VITALS: BMI 39.4
[2021-01-02 10:15] VITALS: BP 135/66; PULSE 79; RESP 18; TEMP 36.5; O2SAT 99
[2021-01-02] MEDS: sodium chloride 0.9% 1,000 ML 30 ML IV (10:31)
--- NOTE | 2021-01-02 10:50 | ANES.PREANE2 ---
Pre-Anesthetic Assessment Pre-Anesthetic Assessment: Height/Weight: Height 1.5 m Weight 88.451 kg Temp Pulse Resp BP Pulse Ox 97.7 F 79 18 135/66 99 01/02/21 10:15 01/02/21 10:15 01/02/21 10:15 01/02/21 10:15 01/02/21 10:15 Preop Diagnosis: luekopenia Proposed Procedure: Operation Date: 01/02/21 11:00 Proposed Procedures p Bone Marrow Biospy With Aspiration(Not Applicable) - Anish Cuenca MD Was Beta Miquel taken within 24 hours: N/A Was Clonidine taken within 24 hours: N/A Last intake: Intake Last Liquid Date 01/01/21 Last Liquid Time 20:00 Last Solid Date 01/01/21 Last Solid Time 19:00 Social: Social History: No alcohol Exam: Pre-Anes Outpt Exam: alert and oriented x 3 Airway: Submandibular: WNL Cervical ROM: WNL MP: 3 Dentition: Other (many missing teeth) History/ROS: No significant history except as noted Pulmonary: Pulmonary: None reported CV/HEM: CV/HEM: DVT : : None reported Hepatic: Hepatic: None reported GI: GI: None reported Metabolic: Metabolic: None reported Musc/skel: Musc/skel: None reported Neuropsych: Comments: mentally challenged- guardian with her Anesthetic Plan: ASA status: 3 Anesthesia: Anesthesia Evaluation and MAC Risk of > 500 ml blood loss (7ml/kg in children): No Meds/Allergies Current Medications: Current Medications Generic Name Dose Route Start Last Admin Trade Name Freq PRN Reason Stop Dose Admin Sodium Chloride 1,000 mls @ 30 ml s/hr 01/02/21 10:00 01/02/21 10:31 Sodium Chloride 0.9% IV 01/03/21 09:59 30 mls/hr .Q24H LYLE Administration PFSH Anesthesia PFSH: Medical History Allergic rhinitis Anticoagulation management encounter Chronic leukopenia Dementia in other diseases classified elsewhere without behavioral disturbance History of 2019 novel coronavirus disease (COVID-19) History of DVT (deep vein thrombosis) Hyperlipemia Hypothyroidism 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 Type 2 diabetes mellitus with unspecified complications Surgical History H/O arthroscopic knee surgery Family History Mother Diabetes Social History Smoking and tobacco status: never smoked Second hand smoke exposure: No Alcohol intake: never Adopted: No Lives independently: No Household members: family Female Reproductive History: Spontaneous abortions: No Data Anesthesia CBC & Chem 7: 01/02/21 10:40 Other Labs: Laboratory Results - last 48 hr 01/02/21 01/02/21 10:40 10:40 WBC 4.2 RBC 4.82 Hgb 15.3 Hct 46.2 MCV 95.9 MCH 31.7 MCHC 33.1 RDW 13.8 Plt Count 260 MPV 10.2 Neut % (Auto) 56.6 Lymph % (Auto) 30.0 [place] % (Auto) 6.1 Eos % (Auto) 0.9 Baso % (Auto) 1.7 Neut # (Auto) 2.40 Lymph # (Auto) 1.3 [place] # (Auto) 0.3 Eos # (Auto) 0.0 Baso # (Auto) 0.1 Nucleated RBC % (auto) 0 Nucleated RBCs # 0.0 PT 12.40 INR 0.89 Cardiac Studies: No Data to Display
[2021-01-02 10:51] LABS: Basophils # 0.1 10^3/uL (0.0-0.1); Basophils % 1.7 %; Eosinophils % 0.9 %; Hematocrit 46.2 % (37.0-47.0); Hemoglobin 15.3 g/dL (11.5-15.3); Lymphocytes # 1.3 10^3/uL (0.8-4.8); Mean Corpuscular HGB Conc 33.1 g/dL (30.0-36.0); Mean Corpuscular Hemoglobin 31.7 pg (28.0-34.0); Mean Corpuscular Volume 95.9 fl (81-99); Mean Platelet Volume 10.2 fL (7.4-10.4); Monocytes # 0.3 10^3/uL (0.2-0.9); Monocytes % 6.1 %; Neutrophils % 56.6 %; Nucleated Red Blood Cells % 0 %; Platelet Count 260 10^3/cmm (130-400); Red Blood Count 4.82 10^6/uL (4.1-5.3); Red Cell Distribution Width 13.8 % (12.1-15.1); White Blood Count 4.2 10^3/uL (4.0-10.0)
[2021-01-02 11:03] LABS: INR 0.89 (0.8-1.2)
--- NOTE | 2021-01-02 11:39 | PM.MISC ---
Miscellaneous Note Note: Patient was seen and examined and her repeat lab including CBC done today showed resolution of leukopenia/neutropenia and hemoglobin and platelet count is within normal range, based on that yield from bone marrow will be very low, at this point decided to abandon the procedure rather follow her in the clinic and in case later on she developed progressive neutropenia/leukopenia or any other cytopenia may consider reevaluation, discussed with patient and her caregiver and they agreed. Patient will go home and will continue same medication and we will see her back in office in 2 months with CBC.
--- NOTE | 2021-01-02 12:31 | PC.NURSE ---
Physician reviewed lab work and determined procedure not needed at this time. Instructed patient to follow up with his office in 2 months.
== END 2021-01-02 12:01 | disposition home or self-care (01) ==
PROVIDERS: Anesthesiology; PCP Family Medicine; Visit Provider Internal Medicine Hematology & Oncology
PROC: 07DT3ZX Extraction of Bone Marrow, Percutaneous Approach, Diagnostic (ICD-10-PCS; CPT 38222; principal; 2021-01-02 11:00)
DX: D72.819 Decreased white blood cell count, unspecified (principal); Z53.09 Procedure and treatment not carried out because of other contraindication; Z86.718 Personal history of other venous thrombosis and embolism
CPT/HCPCS: 36415; 85025; 85610; 96360; J2704; J7030

== ENCOUNTER → 2021-01-17 09:40 | Outpatient (BNVA) | payer MEDICARE, MEDICAID, SELFPAY | PROVIDERS: PCP Family Medicine; Visit Provider Family Medicine | DX: Z86.718 Personal history of other venous thrombosis and embolism (principal); E03.9 Hypothyroidism, unspecified; Z79.01 Long term (current) use of anticoagulants; D72.819 Decreased white blood cell count, unspecified; J44.9 Chronic obstructive pulmonary disease, unspecified; E11.8 Type 2 diabetes mellitus with unspecified complications | CPT/HCPCS: 80053; 83036; 84443; 85025; 85610 ==

== ENCOUNTER → 2021-03-04 14:23 | Outpatient (BNVA) | payer MEDICARE, MEDICAID, SELFPAY | PROVIDERS: PCP Family Medicine; Referring Provider Family Medicine; Visit Provider Family Medicine | DX: Z79.01 Long term (current) use of anticoagulants (principal) | CPT/HCPCS: 85610 ==

== ENCOUNTER → 2021-04-21 15:37 | Outpatient (BNVA) | payer MEDICARE, MEDICAID, SELFPAY | PROVIDERS: PCP Family Medicine; Visit Provider Emergency Medicine | DX: Z86.718 Personal history of other venous thrombosis and embolism (principal) | CPT/HCPCS: 85610 ==

== ENCOUNTER 2021-05-03 15:07 | Outpatient (CLI) | payer MEDICARE, MEDICAID, SELFPAY ==
[2021-05-03 15:46] LABS: Basophils # 0.1 10^3/uL (0.0-0.1); Basophils % 2.2 %; Eosinophils # 0.1 10^3/uL (0.0-0.8); Eosinophils % 2.2 %; Hematocrit 43.1 % (37.0-47.0); Hemoglobin 14.3 g/dL (11.5-15.3); Lymphocytes % 34.5 %; Mean Corpuscular HGB Conc 33.2 g/dL (30.0-36.0); Mean Corpuscular Hemoglobin 31.6 pg (28.0-34.0); Mean Corpuscular Volume 95.4 fl (81-99); Mean Platelet Volume 11.6 fL (7.4-10.4); Monocytes # 0.3 10^3/uL (0.2-0.9); Neutrophils # 1.44 10^3/uL (1.8-7.7); Neutrophils % 51.7 %; Nucleated Red Blood Cells % 0 %; Platelet Count 155 10^3/cmm (130-400); Red Blood Count 4.52 10^6/uL (4.1-5.3); Red Cell Distribution Width 13.7 % (12.1-15.1); White Blood Count 2.8 10^3/uL (4.0-10.0)
[2021-05-03 16:18] LABS: Slide Review Slide Review Perform
--- NOTE | 2021-05-03 16:38 | ONC FU_ITS ---
Juliana Fowler Progress Note Patient: Jlilian Cha Unit #: [id number]: [id number] Dicatated By: Juliana Fowler N.P.Date of Visit:May 03, 2021 Onc MED Follow-up/Prog Note Chief Complaint: Isolated leukopenia History of Present Illness: Ms. Jillian Cha, is a 50-year-old mentally challenged woman with a history of fluctuating leukopenia/neutropenia for couple of years, as per caregiver it was about 2 years ago her routine labs showed white blood count of around 2.8, since then it has been fluctuating up and down and the lowest was less than 1000 in October 2019 when she was diagnosed with Covid 19 infection and was admitted to hospital. As per caregiver that patient came to their facility about 5 years ago and she has been on antipsychotic medicine including lurasidone and and caregiver is aware of it is side effect including leukopenia. Patient is a poor historian, most of the history was available from caregiver, she denies any history of recurrent infections, she denies any history of repeated hospitalization until recently with COVID-19. Denies any weight loss denies any night sweats denies any recurrent fever, denies any abdominal fullness, denies any peripheral lymphadenopathy, denies any sore throat, denies any dysuria. Flow cytometry done on March 07, 2020 showed no aberrant myeloid or lymphoid population detected Denies any alcohol use or smoking, denies any herbs intakes. Whole blood flow cytometry done on March 07, 2020 showed no aberrant myeloid or lymphoid population Patient presents today for follow-up accompanied by her family. She denies any problems. No fever, chills, night sweats. No chest pain shortness of breath or cough. No fatigue or pain. No GI or problems. Review Of Symptoms:See above. 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 Medications: Cetirizine HCl 1 Tablet (of 10 mg) Oral daily [facility] Fish Oil 1 Capsule (of 1000 mg) Oral daily Fenofibrate 1 Tablet (of 160 mg) Oral daily Ferrous Sulfate 1 Tablet (of 325 (65 fe) mg) Oral daily Latuda 1 Tablet (of 40 mg) Oral daily Lurasidone HCl (40 mg) Tablet Oral daily Magnesium 1 Capsule (of 250 mg) Oral daily Montelukast Sodium 1 Tablet (of 10 mg) Oral daily Multivitamin 1 Tablet Oral daily Synthroid 1 Tablet (of 150 mcg) Oral daily Vitamin C 2 Capsule (of 500 mg) Oral daily Vitamin D3 1 Capsule (of 5000 IU) Oral daily Vitamin E 1 Capsule (of 1000 IU) Oral daily Warfarin Sodium Tablet Oral Zinc 1 Tablet (of 50 mg) Oral daily Family History: Ms. Cha's mother at age 63: NATURAL CAUSES. Ms. Cha's father is alive. PT STATES GRANDMOTHER HAD CANCER BUT IS UNSURE OF WHAT TYPE. Social History: Ms. Cha is single and she is a disabled. Ms. Cha has never smoked. She has no history of drinking. Physical Examination: Performed on May 03, 2021 16:09: Height - 47.00 in, Weight - 198.0 lbs (HIGH), BSA - 1.56 sq.m, BMI - 63.02 (HIGH), Temperature - 97.4 F (LOW), Pulse - 58 /min (LOW), Respiration - 18 /min, BP - 108/62 mm(hg), O2 Sat - 97 %, Pain - 0, and Fatigue - 0. Performance Status: 0 - Fully active, able to carry on all predisease activities without restrictions. (ECOG) Constitutional Alert, cooperative, oriented. Mood and affect appropriate. Appears close to chronological age. Well nourished. Has down syndrome Head Normocephalic; no scars. Respiratory Lungs are clear to auscultation without rhonchi or wheezing. Cardiovascular Regular rate and rhythm of heart without murmurs, gallops or rubs. Abdomen Non-tender, non-distended, no masses, ascites or hepatosplenomegaly. Good bowel sounds. No guarding or rebound tenderness. Extremities No visible deformities, no cyanosis, clubbing or edema. Pulses 3+ and equal bilaterally. Psychiatric Alert and oriented times three. Coherent speech. Verbalizes understanding of our discussions today. Laboratory: Test performed on May 03, 2021 15:30 WBC 2.8 10 3/uL RBC 4.52 10 6/uL HGB 14.3 g/dL HCT 43.1 % MCV 95.4 fl MCH 31.6 pg MCHC 33.2 g/dL RDW 13.7 % Platelet Count 155 10 3/cmm MPV 11.6 fL Neutrophils 1.44 10 3/uL Lymphocytes 1.0 10 3/uL Monocytes 0.3 10 3/uL Eosinophils 0.1 10 3/uL Basophils 0.1 10 3/uL Neutrophil % 51.7 % Lymphocyte % 34.5 % Monocyte % 9.0 % Eosinophil % 2.2 % Basophils % 2.2 % NRBC % 0 % CBC Slide Review Slide Review Perform Impression: History of isolated fluctuating leukopenia, initially diagnosed in 2017, baseline around 2.5-3k. 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 Lab work-up checked on February 04, 2020 shows copper 77, folate more than 20, B12 498, TSH 0.61 and abdominal sonogram done on February 28, 2020 showed normal spleen size. Flow cytometry done on March 07, 2020 showed no aberrant myeloid or lymphoid population Trisomy 21 syndrome, Type 2 diabetes mellitus Hypothyroidism History of DVT Dementia Plan: Labs were discussed with patient with WBC at 2.8, hemoglobin 14.3 hematocrit 43.1, neutrophils 1.44. Patient continues to have fluctuating leukopenia possibly due to lurasidone that she takes regularly. A bone marrow was scheduled but the labs were normal so bone marrow biopsy was canceled. Patient is asymptomatic and seems to be feeling well. Per patient wishes and family members wishes we will continue to monitor for now. She will return in 2 months with a CBC. Signed By: Juliana Fowler N.P. <<Signature on File>>
== END 2021-05-03 15:08 | disposition home or self-care (01) ==
LOC: ONCMED 15:11
PROVIDERS: Internal Medicine Hematology & Oncology; PCP Family Medicine; Visit Provider Nurse Practitioner Family
DX: D72.818 Other decreased white blood cell count (principal); Q90.9 Down syndrome, unspecified; E11.9 Type 2 diabetes mellitus without complications; E03.9 Hypothyroidism, unspecified; F03.90 Unspecified dementia, unspecified severity, without behavioral disturbance, psychotic disturbance, mood disturbance, and anxiety; E78.5 Hyperlipidemia, unspecified; Z86.718 Personal history of other venous thrombosis and embolism; Z86.16 Personal history of COVID-19
CPT/HCPCS: 36415; 85025; 99214

== ENCOUNTER → 2021-06-15 12:27 | Outpatient (BNVA) | payer MEDICARE, MEDICAID, SELFPAY | PROVIDERS: PCP Family Medicine; Visit Provider Family Medicine | DX: Z51.81 Encounter for therapeutic drug level monitoring (principal); Z79.01 Long term (current) use of anticoagulants | CPT/HCPCS: 85610 ==

== ENCOUNTER → 2021-07-05 17:37 | Outpatient (BNVA) | payer MEDICARE, MEDICAID, SELFPAY | PROVIDERS: PCP Family Medicine; Visit Provider Family Medicine | DX: Z51.81 Encounter for therapeutic drug level monitoring (principal); Z79.01 Long term (current) use of anticoagulants | CPT/HCPCS: 85610 ==

== ENCOUNTER → 2021-07-11 15:10 | Outpatient (BNVA) | payer MEDICARE, MEDICAID, SELFPAY | PROVIDERS: PCP Family Medicine; Visit Provider Family Medicine | DX: E03.9 Hypothyroidism, unspecified (principal); E78.2 Mixed hyperlipidemia; E11.8 Type 2 diabetes mellitus with unspecified complications; E11.9 Type 2 diabetes mellitus without complications; D72.819 Decreased white blood cell count, unspecified; J30.1 Allergic rhinitis due to pollen; K08.89 Other specified disorders of teeth and supporting structures; R74.8 Abnormal levels of other serum enzymes; Z86.718 Personal history of other venous thrombosis and embolism; Z51.81 Encounter for therapeutic drug level monitoring; Z79.01 Long term (current) use of anticoagulants | CPT/HCPCS: 80053; 80061; 83036; 84443; 85007; 85025 ==

== ENCOUNTER → 2021-08-14 17:08 | Outpatient (BNVA) | payer MEDICARE, MEDICAID, SELFPAY | PROVIDERS: PCP Family Medicine; Visit Provider Family Medicine | DX: Z51.81 Encounter for therapeutic drug level monitoring (principal); Z79.01 Long term (current) use of anticoagulants | CPT/HCPCS: 85610 ==

== ENCOUNTER → 2021-10-03 16:42 | Outpatient (BNVA) | payer MEDICARE, MEDICAID, SELFPAY | PROVIDERS: PCP Family Medicine; Visit Provider Family Medicine | DX: Z79.01 Long term (current) use of anticoagulants (principal) | CPT/HCPCS: 85610 ==

== ENCOUNTER → 2021-10-15 08:56 | Outpatient (BNVA) | payer MEDICARE, MEDICAID, SELFPAY | PROVIDERS: PCP Family Medicine; Visit Provider Family Medicine | DX: J18.9 Pneumonia, unspecified organism (principal) | CPT/HCPCS: 71046 ==

== ENCOUNTER → 2021-11-01 14:21 | Outpatient (BNVA) | payer MEDICARE, MEDICAID, SELFPAY | PROVIDERS: PCP Family Medicine; Visit Provider Family Medicine | DX: J18.9 Pneumonia, unspecified organism (principal); R09.02 Hypoxemia; S00.83XD Contusion of other part of head, subsequent encounter; Z86.718 Personal history of other venous thrombosis and embolism; Z79.01 Long term (current) use of anticoagulants; X58.XXXA Exposure to other specified factors, initial encounter | CPT/HCPCS: 85610 ==

== ENCOUNTER → 2021-12-04 16:52 | Outpatient (BNVA) | payer MEDICARE, MEDICAID, SELFPAY | PROVIDERS: PCP Family Medicine; Visit Provider Family Medicine | DX: Z51.81 Encounter for therapeutic drug level monitoring (principal); Z79.01 Long term (current) use of anticoagulants | CPT/HCPCS: 85610 ==

== ENCOUNTER → 2022-01-02 09:01 | Outpatient (BNVA) | payer MEDICARE, MEDICAID, SELFPAY | PROVIDERS: PCP Family Medicine; Visit Provider Family Medicine | DX: E11.8 Type 2 diabetes mellitus with unspecified complications (principal); E03.9 Hypothyroidism, unspecified; N18.9 Chronic kidney disease, unspecified; Z51.81 Encounter for therapeutic drug level monitoring; Z79.01 Long term (current) use of anticoagulants | CPT/HCPCS: 80048; 83036; 84443; 85610 ==

== ENCOUNTER → 2022-03-03 11:59 | Outpatient (BNVA) | payer MEDICARE, MEDICAID, SELFPAY | PROVIDERS: PCP Family Medicine; Visit Provider Emergency Medicine | DX: Z79.01 Long term (current) use of anticoagulants (principal) | CPT/HCPCS: 85610 ==

== ENCOUNTER → 2022-04-03 17:27 | Outpatient (BNVA) | payer MEDICARE, MEDICAID, SELFPAY | PROVIDERS: PCP Family Medicine; Visit Provider Family Medicine | DX: Z79.01 Long term (current) use of anticoagulants (principal) | CPT/HCPCS: 85610 ==

== ENCOUNTER → 2022-05-27 16:48 | Outpatient (BNVA) | payer MEDICARE, MEDICAID, SELFPAY | PROVIDERS: PCP Family Medicine; Visit Provider Family Medicine | DX: Z79.01 Long term (current) use of anticoagulants (principal) | CPT/HCPCS: 85610 ==

== ENCOUNTER → 2022-07-03 16:19 | Outpatient (BNVA) | payer MEDICARE, MEDICAID, SELFPAY | PROVIDERS: PCP Family Medicine; Visit Provider Registered Nurse | DX: E03.9 Hypothyroidism, unspecified (principal); Z79.01 Long term (current) use of anticoagulants; E78.2 Mixed hyperlipidemia; E11.8 Type 2 diabetes mellitus with unspecified complications; D72.819 Decreased white blood cell count, unspecified | CPT/HCPCS: 80053; 80061; 83036; 84443; 85025; 85610 ==

== ENCOUNTER → 2022-07-30 09:06 | Outpatient (BNVA) | payer MEDICARE, MEDICAID, SELFPAY | PROVIDERS: PCP Family Medicine; Visit Provider Family Medicine | DX: D72.819 Decreased white blood cell count, unspecified (principal); E78.2 Mixed hyperlipidemia; E03.9 Hypothyroidism, unspecified; J30.1 Allergic rhinitis due to pollen; F02.80 Dementia in other diseases classified elsewhere, unspecified severity, without behavioral disturbance, psychotic disturbance, mood disturbance, and anxiety; Q90.9 Down syndrome, unspecified; E11.8 Type 2 diabetes mellitus with unspecified complications; Z86.718 Personal history of other venous thrombosis and embolism; N18.9 Chronic kidney disease, unspecified; F06.0 Psychotic disorder with hallucinations due to known physiological condition | CPT/HCPCS: 85610 ==

== ENCOUNTER → 2022-10-10 09:29 | Outpatient (BNVA) | payer MEDICARE, MEDICAID, SELFPAY | PROVIDERS: PCP Family Medicine; Visit Provider Family Medicine | DX: Z79.01 Long term (current) use of anticoagulants (principal); Z51.81 Encounter for therapeutic drug level monitoring; F02.80 Dementia in other diseases classified elsewhere, unspecified severity, without behavioral disturbance, psychotic disturbance, mood disturbance, and anxiety; Q90.9 Down syndrome, unspecified; Z86.718 Personal history of other venous thrombosis and embolism | CPT/HCPCS: 85610 ==

== ENCOUNTER → 2022-12-01 11:31 | Outpatient (BNVA) | payer MEDICARE, MEDICAID, SELFPAY | PROVIDERS: PCP Family Medicine; Referring Provider Family Medicine; Visit Provider Family Medicine | DX: Z79.01 Long term (current) use of anticoagulants (principal) | CPT/HCPCS: 85610 ==

== ENCOUNTER → 2023-01-14 08:59 | Outpatient (BNVA) | payer MEDICARE, MEDICAID, SELFPAY | PROVIDERS: PCP Family Medicine; Visit Provider Family Medicine | DX: Z79.01 Long term (current) use of anticoagulants (principal); F02.80 Dementia in other diseases classified elsewhere, unspecified severity, without behavioral disturbance, psychotic disturbance, mood disturbance, and anxiety; Q90.9 Down syndrome, unspecified; T88.7XXA Unspecified adverse effect of drug or medicament, initial encounter; N18.9 Chronic kidney disease, unspecified; Z23 Encounter for immunization; L21.9 Seborrheic dermatitis, unspecified; N18.2 Chronic kidney disease, stage 2 (mild); Z86.718 Personal history of other venous thrombosis and embolism | CPT/HCPCS: 80053; 85025; 85610 ==

== ENCOUNTER 2023-01-30 15:29 | Outpatient (CLI) | payer MEDICARE, MEDICAID, SELFPAY ==
--- NOTE | 2023-01-30 15:30 | MM_ITS ---
WS: [id number] BILATERAL SCREENING DIGITAL TOMOSYNTHESIS MAMMOGRAM WITH CAD HISTORY: Z00.00 - Encounter for general adult medical examination ... COMPARISON: 04/01/2016 Bilateral CC and MLO views with tomosynthesis and synthetic mammography submitted. Computer aided det ection analyzed. Breast composition: There are scattered areas of fibroglandular density. No suspicious masses, microc alcifications or architectural distortion. Benign intramammary lymph nodes RIGHT axillary tail. Benig n bilateral calcifications upper IMPRESSION: MM/[place] [id number] BI-RADS: 2-Benign FOLLOW UP: 1 Year Follow-up
== END 2023-01-30 15:30 | disposition home or self-care (01) ==
LOC: MOBLMAM 15:35
PROVIDERS: PCP Family Medicine; Visit Provider Family Medicine
DX: Z12.31 Encounter for screening mammogram for malignant neoplasm of breast (principal)
CPT/HCPCS: 77063; 77067

== ENCOUNTER → 2023-03-22 15:10 | Outpatient (BNVA) | payer MEDICARE, MEDICAID, SELFPAY | PROVIDERS: PCP Family Medicine; Referring Provider Family Medicine; Visit Provider Family Medicine | DX: Z79.01 Long term (current) use of anticoagulants (principal) | CPT/HCPCS: 85610 ==

== ENCOUNTER → 2023-03-26 09:28 | Outpatient (BNVA) | payer MEDICARE, MEDICAID, SELFPAY | PROVIDERS: PCP Family Medicine; Visit Provider Specialist | DX: F02.80 Dementia in other diseases classified elsewhere, unspecified severity, without behavioral disturbance, psychotic disturbance, mood disturbance, and anxiety (principal) | CPT/HCPCS: 99204 ==

== ENCOUNTER → 2023-05-03 11:12 | Outpatient (BNVA) | payer MEDICARE, OTHER, SELFPAY | PROVIDERS: PCP Family Medicine; Referring Provider Family Medicine; Visit Provider Family Medicine | DX: Z79.01 Long term (current) use of anticoagulants (principal) | CPT/HCPCS: 85610 ==

== ENCOUNTER → 2023-05-30 14:37 | Outpatient (BNVA) | payer MEDICARE, OTHER, SELFPAY | PROVIDERS: PCP Family Medicine; Visit Provider Family Medicine | DX: Z79.01 Long term (current) use of anticoagulants (principal) | CPT/HCPCS: 85610 ==

== ENCOUNTER → 2023-06-27 16:04 | Outpatient (BNVA) | payer MEDICARE, OTHER, SELFPAY | PROVIDERS: PCP Family Medicine; Referring Provider Family Medicine; Visit Provider Family Medicine | DX: Z79.01 Long term (current) use of anticoagulants (principal) | CPT/HCPCS: 85610 ==

== ENCOUNTER → 2023-07-15 09:14 | Outpatient (BNVA) | payer MEDICARE, MEDICAID, SELFPAY | PROVIDERS: PCP Family Medicine; Visit Provider Specialist | DX: G30.9 Alzheimer's disease, unspecified (principal); F02.80 Dementia in other diseases classified elsewhere, unspecified severity, without behavioral disturbance, psychotic disturbance, mood disturbance, and anxiety; Q90.9 Down syndrome, unspecified | CPT/HCPCS: 99213 ==

== ENCOUNTER → 2023-07-28 17:33 | Outpatient (BNVA) | payer MEDICARE, MEDICAID, SELFPAY | PROVIDERS: PCP Family Medicine; Referring Provider Family Medicine; Visit Provider Family Medicine | DX: E03.9 Hypothyroidism, unspecified (principal); E11.9 Type 2 diabetes mellitus without complications; E11.8 Type 2 diabetes mellitus with unspecified complications; D72.819 Decreased white blood cell count, unspecified; Z79.01 Long term (current) use of anticoagulants; N18.2 Chronic kidney disease, stage 2 (mild) | CPT/HCPCS: 80053; 83036; 84439; 84443; 84481; 85007; 85027; 85610 ==

== ENCOUNTER → 2023-08-27 10:18 | Outpatient (BNVA) | payer MEDICARE, MEDICAID, SELFPAY | PROVIDERS: PCP Family Medicine; Referring Provider Family Medicine; Visit Provider Family Medicine | DX: Z79.01 Long term (current) use of anticoagulants (principal); N18.2 Chronic kidney disease, stage 2 (mild) | CPT/HCPCS: 85610 ==

== ENCOUNTER → 2023-10-03 10:37 | Outpatient (BNVA) | payer MEDICARE, MEDICAID, SELFPAY | PROVIDERS: PCP Family Medicine; Visit Provider Family Medicine | DX: Z79.01 Long term (current) use of anticoagulants (principal) | CPT/HCPCS: 85610 ==

== ENCOUNTER → 2023-11-07 14:31 | Outpatient (BNVA) | payer MEDICARE, MEDICAID, SELFPAY | PROVIDERS: PCP Family Medicine; Referring Provider Family Medicine; Visit Provider Family Medicine | DX: Z79.01 Long term (current) use of anticoagulants (principal) | CPT/HCPCS: 85610 ==

== ENCOUNTER → 2024-01-02 14:17 | Outpatient (BNVA) | payer MEDICARE, OTHER, SELFPAY | PROVIDERS: PCP Family Medicine; Visit Provider Family Medicine | DX: Z79.01 Long term (current) use of anticoagulants (principal) | CPT/HCPCS: 85610 ==

== ENCOUNTER → 2024-01-12 08:47 | Outpatient (BNVA) | payer MEDICARE, SELFPAY | PROVIDERS: PCP Family Medicine; Visit Provider Family Medicine | DX: E11.9 Type 2 diabetes mellitus without complications (principal); E03.9 Hypothyroidism, unspecified; E78.2 Mixed hyperlipidemia; E11.8 Type 2 diabetes mellitus with unspecified complications; Z23 Encounter for immunization; Z51.81 Encounter for therapeutic drug level monitoring; Z79.01 Long term (current) use of anticoagulants; N18.2 Chronic kidney disease, stage 2 (mild); F02.80 Dementia in other diseases classified elsewhere, unspecified severity, without behavioral disturbance, psychotic disturbance, mood disturbance, and anxiety; Q90.9 Down syndrome, unspecified; Z86.718 Personal history of other venous thrombosis and embolism; D72.819 Decreased white blood cell count, unspecified; R74.8 Abnormal levels of other serum enzymes; J20.9 Acute bronchitis, unspecified; Z91.89 Other specified personal risk factors, not elsewhere classified; Z68.38 Body mass index [BMI] 38.0-38.9, adult | CPT/HCPCS: 80053; 80061; 83036; 84443; 85025 ==

== ENCOUNTER 2024-02-26 08:59 | Outpatient (CLI) | payer MEDICARE, SELFPAY ==
--- NOTE | 2024-02-26 09:00 | MM_ITS ---
WS: [id number] BILATERAL 3D TOMOSYNTHESIS DIGITAL SCREENING MAMMOGRAM WITH CAD CLINICAL INFORMATION: SCREENING HISTORY: Screening mammogram. No current complaints. COMPARISON: 2022 TECHNIQUE: Bilateral CC and MLO views. FINDINGS: Fatty-replaced breasts bilaterally. No suspicious focal mass, asymmetry, calcifications, or sap portal architect ural distortion. No evidence of malignancy. Incidental punctate and lucent centered calcifications. S table lymph nodes along the RIGHT axillary tail. MM/MM scr BI tomosynthesis [id number] IMPRESSION: DENSITY: The breasts are almost entirely fatty. BI-RADS: 2 - Benign. FOLLOW UP: 1 Year Follow-up Recommend return to annual screening mammography.
== END 2024-02-26 09:00 | disposition home or self-care (01) ==
PROVIDERS: PCP Family Medicine; Visit Provider Family Medicine
DX: Z12.31 Encounter for screening mammogram for malignant neoplasm of breast (principal); R92.313 Mammographic fatty tissue density, bilateral breasts; R92.1 Mammographic calcification found on diagnostic imaging of breast; N63.31 Unspecified lump in axillary tail of the right breast
CPT/HCPCS: 77063; 77067

== ENCOUNTER → 2024-03-12 13:41 | Outpatient (BNVA) | payer MEDICARE, SELFPAY | PROVIDERS: PCP Family Medicine; Referring Provider Family Medicine; Visit Provider Family Medicine | DX: Z79.01 Long term (current) use of anticoagulants (principal) | CPT/HCPCS: 85610 ==

== ENCOUNTER → 2024-04-26 16:14 | Outpatient (BNVA) | payer MEDICARE, SELFPAY | PROVIDERS: PCP Family Medicine; Referring Provider Family Medicine; Visit Provider Family Medicine | DX: Z79.01 Long term (current) use of anticoagulants (principal) | CPT/HCPCS: 85610 ==

== ENCOUNTER → 2024-06-25 16:17 | Outpatient (BNVA) | payer MEDICARE, SELFPAY | PROVIDERS: PCP Family Medicine; Referring Provider Family Medicine; Visit Provider Family Medicine | DX: Z51.81 Encounter for therapeutic drug level monitoring (principal); Z79.01 Long term (current) use of anticoagulants | CPT/HCPCS: 85610 ==

== ENCOUNTER → 2024-07-05 08:39 | Outpatient (BNVA) | payer MEDICARE, MEDICAID, SELFPAY | PROVIDERS: PCP Family Medicine; Visit Provider Family Medicine | DX: D72.819 Decreased white blood cell count, unspecified (principal); E78.2 Mixed hyperlipidemia; E03.9 Hypothyroidism, unspecified; J30.1 Allergic rhinitis due to pollen; E11.8 Type 2 diabetes mellitus with unspecified complications; N18.2 Chronic kidney disease, stage 2 (mild); E11.9 Type 2 diabetes mellitus without complications; Z79.01 Long term (current) use of anticoagulants; Z86.718 Personal history of other venous thrombosis and embolism; Z02.89 Encounter for other administrative examinations; K08.9 Disorder of teeth and supporting structures, unspecified; F32.9 Major depressive disorder, single episode, unspecified | CPT/HCPCS: 80053; 83036; 84443; 85025 ==

== ENCOUNTER → 2024-08-06 16:50 | Outpatient (BNVA) | payer MEDICARE, MEDICAID, SELFPAY | PROVIDERS: PCP Family Medicine; Visit Provider Family Medicine | DX: Z51.81 Encounter for therapeutic drug level monitoring (principal); Z79.01 Long term (current) use of anticoagulants | CPT/HCPCS: 85610 ==

== ENCOUNTER → 2024-09-27 16:27 | Outpatient (BNVA) | payer MEDICARE, OTHER, SELFPAY | PROVIDERS: PCP Family Medicine; Visit Provider Family Medicine | DX: Z79.01 Long term (current) use of anticoagulants (principal) | CPT/HCPCS: 85610 ==

== ENCOUNTER → 2024-11-19 16:15 | Outpatient (BNVA) | payer MEDICARE, SELFPAY | PROVIDERS: PCP Family Medicine; Referring Provider Family Medicine; Visit Provider Family Medicine | DX: Z79.01 Long term (current) use of anticoagulants (principal) | CPT/HCPCS: 85610 ==

== ENCOUNTER → 2025-01-06 08:07 | Outpatient (BNVA) | payer MEDICARE, MEDICAID, SELFPAY | PROVIDERS: PCP Family Medicine; Visit Provider Family Medicine | DX: E78.2 Mixed hyperlipidemia (principal); Z79.01 Long term (current) use of anticoagulants; Z51.81 Encounter for therapeutic drug level monitoring; E11.8 Type 2 diabetes mellitus with unspecified complications; E03.9 Hypothyroidism, unspecified; N18.2 Chronic kidney disease, stage 2 (mild); D72.819 Decreased white blood cell count, unspecified; J44.9 Chronic obstructive pulmonary disease, unspecified; Z23 Encounter for immunization | CPT/HCPCS: 80053; 80061; 84439; 84443; 84481; 85025; 85610 ==

== ENCOUNTER → 2025-02-04 10:50 | Outpatient (BNVA) | payer MEDICARE, MEDICAID, SELFPAY | PROVIDERS: PCP Family Medicine; Visit Provider Nurse Practitioner | DX: Z79.01 Long term (current) use of anticoagulants (principal) | CPT/HCPCS: 85610 ==